=== PATIENT | male | born 1945 | race Caucasian/White ===

== ENCOUNTER → 2017-09-14 16:02 | Outpatient (CLI) | payer MEDICARE, SELFPAY | PROVIDERS: Family Provider Family Medicine; PCP Family Medicine; Visit Provider Physician Assistant | DX: R33.9 Retention of urine, unspecified (principal) | CPT/HCPCS: 87086 ==

== ENCOUNTER → 2017-10-02 09:09 | Outpatient (CLI) | payer MEDICARE, SELFPAY ==
--- NOTE | 2017-10-02 | DI.US.S_ITS ---
PROCEDURE: US ABDOMEN COMPLETE INDICATIONS: RIGHT UPPER QUADRANT/FLANK PAIN TECHNIQUE: Real-time scanning was performed of the abdominal and retroperitoneal organs, with image documentation. COMPARISON: [facility], CT, KIDNEY/ URETER/BLADDER, 02/13/2010, 9:35. FINDINGS: Liver: Liver is normal in size and homogeneous in echotexture. Solitary 1.5 cm rounded mass is present within the anterior right hepatic lobe likely an hemangioma. Gallbladder: The 0.7 x 0.6 x 0.5 cm gallbladder polyp otherwise normal gallbladder. Biliary ducts: Intrahepatic bile ducts are non-dilated. Extrahepatic bile duct caliber measures 6.2 mm. Normal is 6-7 mm or less in diameter, or 10 mm or less post-cholecystectomy. Pancreas: Visualized portions of the pancreas are sonographically normal. Spleen: Spleen is normal in size and homogeneous in echotexture. Kidneys: Kidneys are normal in size and echotexture. Right kidney measures 13 cm long; left kidney measures 12.2 cm long. No hydronephrosis or nephrolithiasis. No solid masses. Aorta: Visualized aorta is normal in caliber at less than 3 cm. Iliacs: Not well-seen. IVC: Intrahepatic inferior vena cava is patent. Miscellaneous: No free abdominal fluid. IMPRESSION: 1. Probable cavernous hemangioma present given the sonographic appearance. Recommend sequential follow up sonography at 6, 12 and 24 month intervals for surveillance. 2. 7 mm gallbladder polyp. Followup ultrasound recommended. Dictated by: Rigo MCMAHON Interpreted: Anthony Ellison MD on 10/02/2017 at 10:10 Approved by: Anthony Ellison M.D. on 10/02/2017 at 13:32
== END ==
PROVIDERS: Family Provider Family Medicine; PCP Family Medicine; Visit Provider Family Medicine
DX: R10.11 Right upper quadrant pain (principal); R16.0 Hepatomegaly, not elsewhere classified; K82.4 Cholesterolosis of gallbladder
CPT/HCPCS: 76700

== ENCOUNTER → 2018-09-15 09:53 | Outpatient (CLI) | payer MEDICARE, SELFPAY ==
[2018-09-15 11:44] LABS: Prostate Specific Antigen 1.28 ng/mL (0.10-4.00)
== END ==
PROVIDERS: Family Provider Family Medicine; PCP Family Medicine; Visit Provider Urology
DX: N40.1 Benign prostatic hyperplasia with lower urinary tract symptoms (principal)
CPT/HCPCS: 36415; 84153

== ENCOUNTER → 2019-11-08 16:28 | Outpatient (CLI) | payer MEDICARE, SELFPAY ==
--- NOTE | 2019-11-08 | DI.RAD.S_ITS ---
PROCEDURE: XR ELBOW LT MIN 3V INDICATIONS: Spider Bite with cellulitis left elbow TECHNIQUE: 3 views of the elbow were acquired. COMPARISON: None. FINDINGS: Bones: No fractures or dislocations. No suspicious bony lesions. Degenerative spurring and sclerosis. Soft tissue swelling. IMPRESSION: No focal osseous destruction to suggest advanced osteomyelitis. If there is persistent clinical concern, continued short interval radiographic followup or contrast enhanced MRI could be performed to assess for early infection. Prominent soft tissue swelling Dictated by: Foster Aponte M.D. on 11/08/2019 at 17:23 Approved by: Foster Aponte M.D. on 11/08/2019 at 17:26
[2019-11-08 17:12] LABS: Add Manual Diff / Slide Review NO; Basophils Absolute Auto 100 /uL (0-100); Basophils Percent Auto 0.7 % (0-2); Eosinophils Absolute Auto 200 /uL (0-450); Eosinophils Percent Auto 1.8 % (2-4); Hematocrit 37.1 % (41-53); Hemoglobin 12.2 g/dL (13.5-17.5); Lymphocytes Absolute Auto 1500 /uL (1100-4500); Lymphocytes Percent Auto 11.5 % (25-40); Mean Corpuscular HGB Conc 32.8 % (30-36); Mean Corpuscular Hemoglobin 28.8 PG (26-34); Mean Corpuscular Volume 87.8 fL (80-100); Monocytes Absolute Auto 1300 /uL (0-900); Monocytes Percent Auto 10.1 % (3-14); Neutrophils Absolute Auto 9800 /uL (1500-7000); Neutrophils Percent Auto 75.9 % (50-75); Platelet Count 345 X10^3/uL (150-400); Red Blood Cell Count 4.23 X10^6/uL (4.5-5.9); Red Cell Distribution Width 14.9 % (11.6-14.8); White Blood Cell Count 12.8 X10^3/uL (4.5-11.0)
[2019-11-08 17:56] LABS: C-Reactive Protein Quant 4.2 mg/dL (<1.0)
[2019-11-08 18:22] LABS: Erythrocyte Sedimentation Rate 33 MM/HR (0-15)
== END ==
PROVIDERS: Family Provider Family Medicine; PCP Family Medicine; Referring Provider Internal Medicine; Visit Provider Internal Medicine
DX: T63.301A Toxic effect of unspecified spider venom, accidental (unintentional), initial encounter (principal); L03.114 Cellulitis of left upper limb
CPT/HCPCS: 36415; 73080; 85025; 85651; 86140

== ENCOUNTER → 2020-05-25 09:54 | Outpatient (CLI) | payer MEDICARE, SELFPAY ==
[2020-05-25] MEDS: COVID-19 VACC #1, MRNA(MOD) 100 MCG/0.5 ML VIAL IM (10:03)
== END ==
PROVIDERS: Visit Provider Internal Medicine
DX: Z23 Encounter for immunization (principal)
CPT/HCPCS: 0011A; 91301

== ENCOUNTER → 2020-06-22 09:35 | Outpatient (CLI) | payer MEDICARE, SELFPAY ==
[2020-06-22] MEDS: COVID-19 VACC #2, MRNA(MOD) 100 MCG/0.5 ML VIAL IM (09:44)
== END ==
PROVIDERS: Visit Provider Internal Medicine
DX: Z23 Encounter for immunization (principal)
CPT/HCPCS: 0012A; 91301

== ENCOUNTER 2020-07-15 10:33 | Emergency (ER) | payer MEDICARE, SELFPAY ==
[2020-07-15 10:25] VITALS: BP 174/74; PULSE 90; RESP 16; TEMP 36.7; O2SAT 95; BMI 27.0
[2020-07-15 10:42] LABS: Add Manual Diff / Slide Review NO; Basophils Absolute Auto 100 /uL (0-100); Basophils Percent Auto 0.7 % (0-2); Eosinophils Absolute Auto 100 /uL (0-450); Eosinophils Percent Auto 0.8 % (2-4); Hematocrit 39.9 % (41-53); Hemoglobin 13.1 g/dL (13.5-17.5); Lymphocytes Absolute Auto 1100 /uL (1100-4500); Mean Corpuscular HGB Conc 32.9 % (30-36); Mean Corpuscular Hemoglobin 29.2 PG (26-34); Mean Corpuscular Volume 88.6 fL (80-100); Monocytes Absolute Auto 800 /uL (0-900); Monocytes Percent Auto 6.3 % (3-14); Neutrophils Absolute Auto 10100 /uL (1500-7000); Neutrophils Percent Auto 83.2 % (50-75); Platelet Count 308 X10^3/uL (150-400); Red Cell Distribution Width 15.5 % (11.6-14.8); White Blood Cell Count 12.1 X10^3/uL (4.5-11.0)
[2020-07-15 10:47] LABS: INR 1.1 (0.9-1.3); Prothrombin Time 12.2 SECONDS (10.1-12.7)
--- NOTE | 2020-07-15 10:50 | DI.CT.S_ITS ---
PROCEDURE: CT CHEST ABD PEL W CON INDICATIONS: cough, SOB, severe abdominal pain TECHNIQUE: After the administration of intravenous contrast, 5 mm thick sections acquired from the lung apices to the symphysis. 5 mm coronal and sagittal reformats were performed, with additional 7 mm MIP reformats through the lungs. For radiation dose reduction, the following was used: automated exposure control, adjustment of mA and/or kV according to patient size. COMPARISON: None. FINDINGS: Image quality: Excellent. CHEST: Lungs and pleura: Within the left upper lobe there is a 6 millimeter nodular density surrounded by cystic changes and subtle ground-glass opacity. This is adjacent to vessels. The overall size measures 1.7 x 1.4 centimeters on axial imaging (3; 125). There is mild predominantly a pickle and centrilobular emphysematous changes. No pleural effusions or pneumothorax. Central and peripheral airways appear patent and normal in caliber. Mediastinum: Heart size is normal. Marked coronary vascular calcifications. No pericardial effusion. No mediastinal or hilar adenopathy by size criteria. Thoracic aorta and central pulmonary arteries are normal in size. Esophagus is normal in caliber. No hiatal hernia. Chest wall: No axillary or supraclavicular adenopathy by size criteria. Thyroid gland nodule.. ABDOMEN: Solid organs: Liver is normal in size and enhancement. Gallbladder is unremarkable. Biliary system is non dilated. Pancreas enhances normally. Spleen is normal in size and enhancement. No adrenal nodules. Kidneys are normal in size and enhancement. No hydronephrosis. There is a 9 millimeter nonobstructing nephrolith within the inferior pole of the right kidney. There is a punctate nonobstructing nephrolith within the inferior pole of the left kidney. Subcentimeter hypodensities too small to further characterize but statistically represent simple cysts. Ureters are normal in course and caliber. Calcification noted adjacent to the distal left ureter is favored to be vascular nature. No adjacent inflammation or evidence of obstructing lesion. Peritoneum and bowel: Stomach and small bowel are unremarkable. Internal density from known ingestion of Pepto-Bismol. Appendix is normal. There is no wall thickening or surrounding inflammation. Colon is unremarkable. No evidence of obstruction. No ascites or pneumoperitoneum. Nodes and vessels: No retroperitoneal or mesenteric adenopathy by size criteria. Aorta and inferior vena cava are normal in size. There is diffuse vascular calcifications noted throughout the aorta and branch vessels. Miscellaneous: No ventral hernias. PELVIS: Genitourinary: Bladder wall thickness is normal. Prostatomegaly with the prostate measuring approximately 5.4 centimeters in transverse diameter. Miscellaneous: No inguinal hernias or adenopathy. Bones: No suspicious bony lesions. Severe right hip degenerative changes. Mild to moderate left hip degenerative changes. Diffuse degenerative changes of the spine. Subacute left posterolateral 10th rib fracture. No vertebral body compression fractures. IMPRESSION: There is a likely cavitary lung lesion within the right upper lobe measuring up to 1.7 centimeters in greatest diameter. There is a 6 millimeter nodular density noted within with associated ground-glass opacity adjacently. This is adjacent to vasculature and the density may represent a small aneurysm versus solid component. This may represent infectious or malignant process. Recommend cardiothoracic evaluation for for next step. In addition, IR referral may be beneficial. No acute abnormality within the abdomen or pelvis. Diffuse atherosclerosis throughout the abdominal and pelvic vasculature . Prostatomegaly. Coronary vascular calcifications. Additional chronic findings as above. Dictated by: Sonny Condon D.O. on 07/15/2020 at 10:42 Approved by: Sonny Condon D.O. on 07/15/2020 at 11:00
[2020-07-15 10:52] LABS: Alanine Aminotransferase 13 IU/L (<50); Albumin 3.9 g/dL (3.5-5.0); Albumin Globulin Ratio 1.2 (1.0-2.8); Alkaline Phosphatase 98 U/L (38-126); Aspartate Aminotransferase 21 IU/L (17-59); BUN Creatinine Ratio 24.8 (6-22); Bilirubin Total 0.2 mg/dL (0.2-1.3); Blood Urea Nitrogen 38 mg/dL (9-20); Calcium 9.1 mg/dL (8.4-10.2); Carbon Dioxide 29 mmol/L (22-32); Chloride 102 mmol/L (98-107); Creatine Kinase 94 U/L (55-170); Estimated Glomerular Filt Rate 44.8 mL/min (>60); Globulin 3.3 g/dL (1.7-4.1); Glucose 66 mg/dL (80-110); HEMOLYSIS < 15 (0-50); Potassium 4.8 mmol/L (3.4-5.1); Sodium 138 mmol/L (137-145); Total Protein 7.2 g/dL (6.3-8.2)
--- NOTE | 2020-07-15 10:54 | ED_ITS ---
HPI - Nausea/Vomiting/Diarrhea General Chief complaint: Abdominal Pain Stated complaint: abd pain Time Seen by Provider: 07/15/20 10:34 Source: EMS Mode of arrival: EMS Limitations: no limitations History of Present Illness HPI Narrative: 74-year-old male daily smoker with history of hemorrhoids and gastric ulcer presents with cough, shortness of breath, weakness, severe generalized abdominal pain as well as nausea, vomiting and copious diarrhea for the past few days. He presents by EMS as he feels so poorly a could not get himself here. EMS state that family report a suspected history of prostate cancer but there is no definite diagnosis. He has had no fever or chills. He denies any chest pain. He has had difficulty eating or drinking anything as it immediately comes out in the form of liquid stool. He has been taking Pepto- Bismol for the past few days without any relief. He denies recent antibiotics, exposure to bad food or other persons with similar symptoms. He states that he feels like everything has become severe since he received his COVID vaccination MD complaint: nausea, vomiting, diarrhea, abdominal pain and other Onset (ago): day(s) Description of Vomiting: food contents Description of Diarrhea: watery Associated Abdominal Pain: Yes Location of pain: diffuse Severity: moderate Quality: cramping and aching Pain Consistency: constant Relieving factors: rest Exacerbating factors: movement Related Data Home Medications Medication Instructions Recorded Confirmed Metformin Hydrochloride 1,000 mg PO BID #1 12/18/08 07/15/20 (Glucophage) finasteride 5 mg PO QDAY #0 02/26/16 glipizide [Glucotrol XL] 5 mg PO QDAY #0 02/26/16 07/15/20 lisinopril 20 mg PO QDAY #0 02/26/16 07/15/20 lovastatin 20 mg PO QDAY #0 02/26/16 07/15/20 meloxicam 15 mg PO DAILY #0 02/26/16 07/15/20 finasteride 5 mg PO DAILY 07/15/20 07/15/20 potassium citrate 10 meq PO DAILY 07/15/20 07/15/20 tamsulosin 0.4 mg PO BID 07/15/20 07/15/20 Previous Rx's Medication Instructions Recorded omeprazole 40 mg PO QAM 14 Days #0 cap 02/26/16 Allergies Allergy/AdvReac Type Severity Reaction Status Date / Time No Known Allergies Allergy Uncoded 07/15/20 10:49 Review of Systems Constitutional Constitutional: Reports chills, Reports fatigue, Denies fever(s), Denies frequent falls, Denies lethargy and Reports weakness Eyes Eyes: Denies change in vision, Denies eye discharge, Denies irritation and Denies loss of vision ENT Ears, Nose, Mouth, and Throat: Denies change in voice, Denies dizziness, Denies neck pain, Denies sore throat and Denies throat swelling Cardiovascular Cardiovascular: Denies chest pain, Denies irregular heart rhythm, Denies lightheadedness, Denies palpitations, Reports dyspnea, Denies dyspnea on exertion and Denies orthopnea Respiratory Respiratory: Reports cough, Reports dyspnea, Denies dyspnea on exertion and Denies wheezing Gastrointestinal Gastrointestinal: Reports abdominal pain, Denies change in bowel habits, Reports diarrhea, Denies nausea and Reports vomiting Musculoskeletal Musculoskeletal: Denies neck pain and Denies numbness Integumentary/Breasts Skin/Breast: Denies pruritus, Denies erythema, Denies rash and Denies wounds Neurologic Neurologic: Denies behavioral changes, Denies confusion, Denies dizziness, Denies frequent falls, Denies loss of vision, Denies numbness and Reports weakness Psychiatric Psychiatric: Denies anxiety, Denies behavioral changes, Denies confusion, Denies depression, Denies homicidal ideation and Denies suicidal ideation Endocrine Endocrine: Reports fatigue, Denies flushing and Denies palpitations Hematologic/Lymphatic Hematologic/Lymphatic: Denies easy bruising Allergic/Immunologic Allergic/Immunologic: Denies urticaria, Denies throat swelling and Denies wheezing Patient History Social History Smoking Status: Current every day smoker Smoking Status: Current every day smoker Substance Use Type: does not use Exam Narrative Exam Narrative: GENERAL: [74] year old patient appears stated age. Well- nourished, well-developed patient, in mild distress. Holding an emesis bag, complaining of abdominal pain HEAD: Atraumatic. Normocephalic. EYES: Pupils equal round and reactive. Extraocular motions intact. No scleral icterus. No injection or drainage. ENT: Dry mucous membranes Nose without bleeding, purulent drainage. Throat without erythema, tonsillar hypertrophy or exudate. Airway patent. NECK: Trachea midline. Non tender CARDIOVASCULAR: Regular rate and rhythm without murmurs, gallops, or rubs. RESPIRATORY: Clear to auscultation. Breath sounds equal bilaterally. No wheezes, rales, or rhonchi. GASTROINTESTINAL: Abdomen soft, widespread tenderness, nondistended. Bowel guy nds present in all 4 quadrants EXTREMITIES: No edema or joint tenderness. BACK: Nontender without deformity or crepitance. No flank tenderness. NEURO: AOx3. SKIN: Poor skin turgor No rash or erythema of visible areas Initial Vital Signs Initial Vital Signs: Vital Signs Temperature 98.1 F 07/15/20 10:25 Pulse Rate 90 07/15/20 10:25 Respiratory Rate 16 07/15/20 10:25 Blood Pressure 174/74 H 07/15/20 10:25 Pulse Oximetry 95 07/15/20 10:25 Course Orders Ordered: ED Orders 07/15/20 10:37 Complete Blood Count AUTO DIFF Stat Comprehensive Metabolic Panel Stat Prothrombin Time INR Stat Troponin & CK Cardiac Panel Stat 07/15/20 10:41 COVID19 - ADMIT ([employer] swab/PCR) Stat 07/15/20 10:50 CT chest abd pel w con Stat 07/15/20 12:20 Blood Culture Stat Lactate (Lactic Acid) Stat Type and Screen Stat Levofloxacin (Levaquin) 750 mg in 150 mls @ 100 mls/hr IV Q24H DANELLE Last Infusion: 07/15/20 15:53 Dose: 0 mls/hr Documented by: Admin: 07/15/20 14:16 Dose: 100 mls/hr Documented by: ROLY Ondansetron HCl (Ondansetron 4 Mg/2 Ml Inj) 4 mg IV Q4HR PRN PRN Reason: Nausea And Vomiting Last Admin: 07/15/20 10:58 Dose: 4 mg Documented by: ROLY Discontinued Medications Diazepam (Diazepam 10 Mg/2 Ml Syringe) 2 mg IV NOW ONE Stop: 07/15/20 12:41 Last Admin: 07/15/20 12:56 Dose: 2 mg Documented by: ROLY Diazepam (Diazepam 10 Mg/2 Ml Syringe) 2 mg IV NOW ONE Stop: 07/15/20 16:35 Last Admin: 07/15/20 16:40 Dose: 2 mg Documented by: ROLY Hydromorphone HCl (Hydromorphone 0.5 Mg Inj) 0.5 mg IV NOW ONE Stop: 07/15/20 11:03 Last Admin: 07/15/20 11:06 Dose: 0.5 mg Documented by: ROLY Sodium Chloride (Normal Saline 0.9%) 1,000 mls @ 1,000 mls/hr IV BOLUS ONE Stop: 07/15/20 11:33 Last Infusion: 07/15/20 11:50 Dose: 0 mls/hr Documented by: Admin: 07/15/20 10:59 Dose: 1,000 mls/hr Documented by: ROLY Sodium Chloride (Normal Saline 0.9%) 1,000 mls @ 1,000 mls/hr IV BOLUS ONE Stop: 07/15/20 11:57 Last Infusion: 07/15/20 13:30 Dose: 0 mls/hr Documented by: Admin: 07/15/20 12:14 Dose: 1,000 mls/hr Documented by: ROLY Pantoprazole Sodium (Pantoprazole 40 Mg Vial) 40 mg IV NOW ONE Stop: 07/15/20 10:35 Last Admin: 07/15/20 10:56 Dose: 40 mg Documented by: ROLY Vital Signs Vital signs: Vital Signs - 8 hr 07/15/20 10:25 07/15/20 11:03 07/15/20 11:30 Temperature 98.1 F Pulse Rate 90 89 95 H Respiratory Rate 16 31 H 16 Blood Pressure 174/74 H Pulse Oximetry 95 93 92 07/15/20 12:00 07/15/20 12:30 07/15/20 13:00 Temperature Pulse Rate 92 H 92 H 91 H Respiratory Rate 19 19 20 Blood Pressure Pulse Oximetry 93 96 90 L MDM - Nausea/Vomiting/Diarrhea Lab Data Result diagrams: 07/15/20 10:37 07/15/20 10:37 Labs: Lab Results 07/15/20 07/15/20 07/15/20 Range/Units 10:37 10:37 10:37 WBC 12.1 H (4.5-11.0) X10^3/uL RBC 4.50 (4.5-5.9) X10^6/uL Hgb 13.1 L (13.5-17.5) g/dL Hct 39.9 L (41-53) % MCV 88.6 (80-100) fL MCH 29.2 (26-34) PG MCHC 32.9 (30-36) % RDW 15.5 H (11.6-14.8) % Plt Count 308 (150-400) X10^3/uL Neut % (Auto) 83.2 H (50-75) % Lymph % (Auto) 9.0 L (25-40) % [place] % (Auto) 6.3 (3-14) % Eos % (Auto) 0.8 L (2-4) % Baso % (Auto) 0.7 (0-2) % Neut # (Auto) 01336 H (8846-6300) /uL Lymph # (Auto) 1100 (5908-0085) /uL [place] # (Auto) 800 (0-900) /uL Eos # (Auto) 100 (0-450) /uL Baso # (Auto) 100 (0-100) /uL PT 12.2 (10.1-12.7) SECONDS INR 1.1 (0.9-1.3) Sodium 138 (137-145) mmol/L Potassium 4.8 (3.4-5.1) mmol/L Chloride 102 (98-107) mmol/L Carbon Dioxide 29 (22-32) mmol/L BUN 38 H (9-20) mg/dL Creatinine 1.53 H (0.66-1.25) mg/dL Estimated GFR 44.8 L (>60) mL/min BUN/Creatinine Ratio 24.8 H (6-22) Glucose 66 L (80-110) mg/dL Lactate (0.7-2.1) mmol/L Calcium 9.1 (8.4-10.2) mg/dL Total Bilirubin 0.2 (0.2-1.3) mg/dL AST 21 (17-59) IU/L ALT 13 (<50) IU/L Alkaline Phosphatase 98 (38-126) U/L Total Creatine Kinase (55-170) U/L CK-MB (CK-2) CK-MB (CK-2) Rel Index Troponin I (0.01-0.034) ng/mL Total Protein 7.2 (6.3-8.2) g/dL Albumin 3.9 (3.5-5.0) g/dL Globulin 3.3 (1.7-4.1) g/dL Albumin/Globulin Ratio 1.2 (1.0-2.8) SARS-CoV-2 (PCR) (Negative) Blood Type Antibody Screen 07/15/20 07/15/20 07/15/20 Range/Units 10:37 10:41 12:20 WBC (4.5-11.0) X10^3/uL RBC (4.5-5.9) X10^6/uL Hgb (13.5-17.5) g/dL Hct (41-53) % MCV (80-100) fL MCH (26-34) PG MCHC (30-36) % RDW (11.6-14.8) % Plt Count (150-400) X10^3/uL Neut % (Auto) (50-75) % Lymph % (Auto) (25-40) % [place] % (Auto) (3-14) % Eos % (Auto) (2-4) % Baso % (Auto) (0-2) % Neut # (Auto) (1759-9156) /uL Lymph # (Auto) (2110-2317) /uL [place] # (Auto) (0-900) /uL Eos # (Auto) (0-450) /uL Baso # (Auto) (0-100) /uL PT (10.1-12.7) SECONDS INR (0.9-1.3) Sodium (137-145) mmol/L Potassium (3.4-5.1) mmol/L Chloride (98-107) mmol/L Carbon Dioxide (22-32) mmol/L BUN (9-20) mg/dL Creatinine (0.66-1.25) mg/dL Estimated GFR (>60) mL/min BUN/Creatinine Ratio (6-22) Glucose (80-110) mg/dL Lactate 0.8 (0.7-2.1) mmol/L Calcium (8.4-10.2) mg/dL Total Bilirubin (0.2-1.3) mg/dL AST (17-59) IU/L ALT (<50) IU/L Alkaline Phosphatase (38-126) U/L Total Creatine Kinase 94 (55-170) U/L CK-MB (CK-2) TNP CK-MB (CK-2) Rel Index TNP Troponin I 0.013 (0.01-0.034) ng/mL Total Protein (6.3-8.2) g/dL Albumin (3.5-5.0) g/dL Globulin (1.7-4.1) g/dL Albumin/Globulin Ratio (1.0-2.8) SARS-CoV-2 (PCR) Negative (Negative) Blood Type Antibody Screen 07/15/20 Range/Units 12:20 WBC (4.5-11.0) X10^3/uL RBC (4.5-5.9) X10^6/uL Hgb (13.5-17.5) g/dL Hct (41-53) % MCV (80-100) fL MCH (26-34) PG MCHC (30-36) % RDW (11.6-14.8) % Plt Count (150-400) X10^3/uL Neut % (Auto) (50-75) % Lymph % (Auto) (25-40) % [place] % (Auto) (3-14) % Eos % (Auto) (2-4) % Baso % (Auto) (0-2) % Neut # (Auto) (3886-7165) /uL Lymph # (Auto) (2372-2050) /uL [place] # (Auto) (0-900) /uL Eos # (Auto) (0-450) /uL Baso # (Auto) (0-100) /uL PT (10.1-12.7) SECONDS INR (0.9-1.3) Sodium (137-145) mmol/L Potassium (3.4-5.1) mmol/L Chloride (98-107) mmol/L Carbon Dioxide (22-32) mmol/L BUN (9-20) mg/dL Creatinine (0.66-1.25) mg/dL Estimated GFR (>60) mL/min BUN/Creatinine Ratio (6-22) Glucose (80-110) mg/dL Lactate (0.7-2.1) mmol/L Calcium (8.4-10.2) mg/dL Total Bilirubin (0.2-1.3) mg/dL AST (17-59) IU/L ALT (<50) IU/L Alkaline Phosphatase (38-126) U/L Total Creatine Kinase (55-170) U/L CK-MB (CK-2) CK-MB (CK-2) Rel Index Troponin I (0.01-0.034) ng/mL Total Protein (6.3-8.2) g/dL Albumin (3.5-5.0) g/dL Globulin (1.7-4.1) g/dL Albumin/Globulin Ratio (1.0-2.8) SARS-CoV-2 (PCR) (Negative) Blood Type A Positive Antibody Screen Negative MDM Narrative Medical decision making narrative: Patient with nausea, vomiting, diarrhea and abdominal pain is dizzy, weak and lightheaded and has had some cough and shortness of breath over the past few days. He has had no fever or chills. The CT of his abdomen does not demonstrate any significant findings, patient has been given fluids. His chest CT does note a 1.7 cm cavitary lesion in the apex of his lung which is concerning for infectious versus malignant etiology. I did discuss initially with my hospitalist here but he was uncomfortable keeping the patient as we do not have Interventional Radiology, CT or pulmonology. He requested transfer to [facility], he is on staff there is well and felt to be a more appropriate facility. Patient does not live in group setting, has not travelled internationally, was not born overseas, no chronic immune suppression. Risks for TB considered to be smoking, and DM only. Discharge Plan Departure Patient Disposition: [facility] Clinical Impression: Acute kidney injury, Cavitary lesion of lung Abdominal pain Qualifiers: Abdominal location: generalized Qualified Code(s): R10.84 - Generalized abdominal pain Prescriptions: No Action Metformin Hydrochloride (Glucophage) 1,000 mg PO BID Qty: 1 RF: 0 lisinopril 20 MG tablet 20 mg PO QDAY Qty: 0 RF: 0 meloxicam 15 MG tablet 15 mg PO DAILY Qty: 0 RF: 0 lovastatin 40 MG tablet 20 mg PO QDAY Qty: 0 RF: 0 glipizide [Glucotrol XL] 5 MG tablet extended release 24hr 5 mg PO QDAY Qty: 0 RF: 0 finasteride 5 MG tablet 5 mg PO QDAY Qty: 0 RF: 0 omeprazole 40 MG capsule,delayed release(DR/EC) 40 mg PO QAM 14 Days Qty: 0 RF: 0 finasteride 5 mg tablet 5 mg PO DAILY RF: 0 tamsulosin 0.4 mg PO BID RF: 0 potassium citrate 10 meq PO DAILY RF: 0
[2020-07-15] MEDS: PANTOPRAZOLE 40 MG VIAL IV (10:56)
[2020-07-15] MEDS: ONDANSETRON 4 MG/2 ML INJ IV (10:58)
[2020-07-15] MEDS: SODIUM CHLORIDE 0.9% 1,000 ML 1000 ML IV ×2 (10:59→12:14)
[2020-07-15 11:03] VITALS: PULSE 89; RESP 31; O2SAT 93
[2020-07-15 11:04] LABS: Troponin I 0.013 ng/mL (0.01-0.034)
[2020-07-15] MEDS: HYDROMORPHONE 0.5 MG INJ IV (11:06)
[2020-07-15 11:30] VITALS: PULSE 95; RESP 16; O2SAT 92
[2020-07-15 12:00] VITALS: PULSE 92; RESP 19; O2SAT 93
[2020-07-15 12:07] LABS: COVID19 - ADMIT (NP swab/PCR) Negative (Negative)
[2020-07-15 12:30] VITALS: PULSE 92; RESP 19; O2SAT 96
[2020-07-15 12:43] LABS: Lactate (Lactic Acid) 0.8 mmol/L (0.7-2.1)
[2020-07-15] MEDS: diazePAM 10 MG/2 ML SYRINGE 2 MG IV ×2 (12:56→16:40)
[2020-07-15 13:00] VITALS: PULSE 91; RESP 20; O2SAT 90
[2020-07-15] MEDS: levoFLOXacin 750 MG/150 ML PIGGYBACK 100 MG IV (14:16)
--- NOTE | 2020-07-15 16:26 | PC.NURSE ---
stage two pressure ulceration noted to coccyx
--- NOTE | 2020-07-15 17:23 | PC.NURSE ---
Report to Yessica WHITING at [facility].
== END 2020-07-15 18:18 | disposition short-term general hospital (02) ==
PROVIDERS: Emergency Provider Emergency Medicine
DX: N17.9 Acute kidney failure, unspecified (principal); R91.1 Solitary pulmonary nodule; R10.84 Generalized abdominal pain; R42 Dizziness and giddiness; R11.2 Nausea with vomiting, unspecified; R19.7 Diarrhea, unspecified; Z20.822 Contact with and (suspected) exposure to COVID-19
CPT/HCPCS: 36415; 71260; 74177; 80053; 82550; 83605; 84484; 85025; 85610; 86850; 86900; 86901; 87040; 87635; 96361; 96365; 96366; 96375; 96376; 99284; 99291; C9803; C9113; J1170; J1956; J2405; J3360; Q9967

== ENCOUNTER 2020-07-30 12:11 | Inpatient (IN) | payer MEDICARE, SELFPAY ==
[2020-07-30] VITALS (68 sets, daily range): BP systolic 54–168; BP diastolic 33–81; PULSE 57–126; RESP 12–48; TEMP 35.3–36.6; O2SAT 81–99; BMI 26.5
--- NOTE | 2020-07-30 | PATH_ITS ---
[facility] Accession Number: [id number] . 01 Material submitted: . abdomen - OMENTUM . 02 Diagnosis: Omentum, Partial Resection: Omentum with serositis. No evidence of atypia or malignancy. MRV 08/03/2020 1314 Local . 02 Electronically signed: . Rosetta Terrell MD, Pathologist NPI- [id number] . 01 Gross description: . The specimen is received in formalin, labeled omentum and consists of a 13.0 x 12.0 x 2.5 cm wilkinson-yellow portion of omentum which is sectioned to reveal wilkinson-yellow lobulated cut surfaces. No masses or lesions are identified. Extern sections are submitted in cassettes A1-A3. ([id number]) /V 08/01/2020 1022 Local . 02 Pathologist provided ICD-10: K63.1 . 02 CPT . 115707 Performed at: 01 [facility] [address], [place], [place] [id number] MD Andrzej Henriquez MD Phone: [phone] Performed at: 02 [facility] [address] [place], [place] [id number] MD Rosetta Terrell MD Phone: [phone]
--- NOTE | 2020-07-30 12:14 | DI.CT.S_ITS ---
PROCEDURE: CT ABDOMEN PELVIS W CON INDICATIONS: abdominal pain, sob, no BM x 4 days, ? n/v TECHNIQUE: After the administration of intravenous contrast, 5 mm thick sections acquired from the diaphragm to the symphysis. 5 mm coronal and sagittal reformats were acquired. For radiation dose reduction, the following was used: automated exposure control, adjustment of mA and/or kV according to patient size. COMPARISON: [facility], CT, CT CHEST ABD PEL W CON, 07/15/2020, 11:05. [facility], CT, CT ANGIO CHEST PE PROTOCOL, 07/30/2020, 12:53. FINDINGS: Image quality: Excellent. ABDOMEN: Lung bases: There is a small left-sided pleural effusion. Heart size is normal. At least moderate coronary artery calcification is seen. Solid organs: Liver is normal in size and enhancement. Gallbladder demonstrates no significant abnormality. Biliary system is non dilated. Pancreas enhances normally. Spleen is normal in size and enhancement. No adrenal nodules. Kidneys demonstrate normal size and enhancement, without hydronephrosis. Peritoneum and bowel: There is moderate free intraperitoneal gas seen. The site of the perforation is not clearly identified, although it is suspected to be within the proximal duodenum, given the focal fluid and gas at this site, as on series 11, image 45. There is a mild degree of ascites seen. The ascites measures water density and is simple ascites. Generalized wall thickening can be seen of the small bowel, particularly proximally. A moderate amount of stool can be seen within the colon. There is density seen within the cc of the distal colon, which is attributed to the previously administered oral contrast from the 07/15/2020 examination. Nodes and vessels: No retroperitoneal or mesenteric adenopathy by size criteria. Aorta and inferior vena cava are normal in size. Dense atherosclerotic calcification is seen. Miscellaneous: No ventral hernias. PELVIS: Genitourinary: A Molina catheter is seen, which decompresses the bladder. Miscellaneous: No inguinal adenopathy. Small bilateral inguinal hernias are seen, which contain fat and fluid on the right and fat on the left. Bones: No suspicious bony lesions. No vertebral body compression fractures. Mild levoconvex scoliotic curvature is noted. Age-appropriate bony degenerative changes are seen. IMPRESSION: A moderate amount of free intraperitoneal gas is seen, which represents perforation till proven otherwise. The site of the perforation is not clearly seen, although it is suspected to be within the proximal duodenum. Urgent surgical consultation is recommended. There is a mild amount of ascites. Generalized small bowel wall thickening is seen. Small left-sided pleural effusion. Incidental note is made of: Bilateral inguinal hernias Molina catheter Atherosclerotic calcification, including involving the coronary arteries Note: Case discussed by telephone with Dr. Veliz at 12:35 p.m. on July 30, 2020. Dictated by: Charles Alanis M.D. on 07/30/2020 at 12:36 Approved by: Charles Alanis M.D. on 07/30/2020 at 12:39
--- NOTE | 2020-07-30 12:15 | DI.RAD.S_ITS ---
PROCEDURE: XR CHEST 1V INDICATIONS: shortness of breath, abdominal pain, TECHNIQUE: One view of the chest was acquired. COMPARISON: [facility], CR, XR CHEST 1 VIEW, 07/16/2020, 23:30. [facility], CT, CT CHEST ABD PEL W CON, 07/15/2020, 11:05. FINDINGS: Surgical changes and devices: None. Lungs and pleura: No focal infiltrates are seen. No pleural effusions or pneumothorax. Mediastinum: Mediastinal contours appear normal. Heart size is normal. Atherosclerotic calcification of the aortic arch is noted. Bones and chest wall: No suspicious bony lesions. Age-appropriate bony degenerative changes are seen. Overlying soft tissues appear unremarkable. IMPRESSION: No significant portable chest abnormality is seen. Dictated by: Charles Alanis M.D. on 07/30/2020 at 11:43 Approved by: Charles Alanis M.D. on 07/30/2020 at 11:45
--- NOTE | 2020-07-30 12:16 | ED.SOB ---
HPI - SOB/Dyspnea General Chief Complaint: Shortness of Breath/Dyspnea Stated Complaint: abd pain/desat Time Seen by Provider: 07/30/20 12:14 Source: patient, EMS and old records reviewed Mode of arrival: EMS Limitations: no limitations History of Present Illness HPI Narrative: This is a 74-year-old male who comes to the emergency department for abdominal, no bowel movement for the last 4-5 days. Patient has also been feeling acutely short of breath in the last day. States he has had some nausea and vomiting today as well. He states the shortness of breath started but the last hour. Patient has had increasing pain in his abdomen has felt distended. Patient is unaware of any fevers. He does appreciate swelling of all of his extremities. Patient has seen recently on the and transferred to [facility] for cavitary lung lesion along with history of hemorrhoids and gastric ulcer who had copious diarrhea at that time. Patient was discharged and sent as from [facility]. Attempting to get records. Patient is alert he does appear uncomfortable. He did arrive with his pulse form which states DNR/DNI and comfort measures only. Past patient and he does not wish to be intubated, ventilator have CPR but he is open to IV fluids, and medications. Patient has a history of diabetes, hypertension and dyslipidemia. He denies any recent major cardiac or abdominal surgeries. There is also reported history of possible prostate cancer but unclear if this is a concrete diagnosis. Patient also states he has used tobacco in the past but he has not required oxygen in the past. Related Data Home Medications Medication Instructions Recorded Confirmed Metformin Hydrochloride 1,000 mg PO BID #1 12/18/08 07/30/20 (Glucophage) finasteride 5 mg PO QDAY #0 02/26/16 07/30/20 glipizide [Glucotrol XL] 5 mg PO QDAY #0 02/26/16 07/30/20 lisinopril 10 mg PO QDAY #0 02/26/16 07/30/20 lovastatin 20 mg PO QDAY #0 02/26/16 07/30/20 meloxicam 15 mg PO DAILY #0 02/26/16 07/15/20 potassium citrate 10 meq PO DAILY 07/15/20 07/15/20 tamsulosin 0.8 mg PO DAILY 07/15/20 07/30/20 amlodipine 5 mg PO DAILY 07/30/20 07/30/20 gabapentin 100 mg PO BEDTIME 07/30/20 07/30/20 hydrocodone-acetaminophen 1 tab PO Q6H PRN 07/30/20 07/30/20 Previous Rx's Medication Instructions Recorded omeprazole 40 mg PO QAM 14 Days #0 cap 02/26/16 Allergies Allergy/AdvReac Type Severity Reaction Status Date / Time No Known Drug Allergies Allergy Verified 07/30/20 12:25 Review of Systems Review of Systems ROS Unobtainable: All systems reviewed & are unremarkable except as noted in HPI and below Patient History Medical History BPH (benign prostatic hyperplasia) Chronic kidney disease DM2 (diabetes mellitus, type 2) HTN (hypertension) Smoker Social History Smoking Status: Current every day smoker Smoking Status: Current every day smoker Substance Use Type: does not use Exam Narrative Exam Narrative: GEN: Ill-appearing male, alert and oriented, patient appears to be in moderate distress. Patient is not diaphoretic. HEENT: Atraumatic, pupils are equal round reactive to light, extraocular movements are intact, nares are clear, there is no conjunctival pallor. Throat is clear without any exudates, erythema, tonsillar enlargement or uvular deviation, mucous membranes appear dry. HEART: Regular rate and rhythm without murmur, clicks, rubs. Pulses are equal in upper and lower extremities LUNGS:Lungs decreased bilaterally, no wheezes, rales, crackles, chest moves symmetrically, positive for tachypnea. ABD:bowel sounds normal, soft, positive for generalized tenderness, no guarding, rebound, rigidity, no masses noted, no hepatosplenomegaly, mildly distended. :No CVA tenderness MSCL: Non-tender, full range of motion upper and lower extremities. Patient has some scabbed abrasions on his right anterior love. No discrete swelling appreciated bilateral upper lower extremities. NEURO:CN 2-12 intact, sensation normal SKIN: Pallor, cyanosis, no rash or skin changes appreciated. Initial Vital Signs Initial Vital Signs: Vital Signs Temperature 97.9 F 07/30/20 12:10 Pulse Rate 110 H 07/30/20 12:10 Respiratory Rate 40 H 07/30/20 12:10 Blood Pressure 82/49 L 07/30/20 12:10 Pulse Oximetry 81 L 07/30/20 12:10 Scores GCS Joni coma scale eye opening: Spontaneous [place] coma scale verbal response: Orientated Joni coma scale motor response: Obey commands Joni coma scale total score: 15 Course Orders Ordered: ED Orders 07/30/20 12:14 Consult to Respiratory Therapy Evaluate & Treat CT abdomen pelvis w con Stat Complete Blood Count AUTO DIFF Stat Comprehensive Metabolic Panel Stat D Dimer Stat Lipase Stat Magnesium Stat NT-proBNP (BNP-Adult 18+) Stat Partial Thromboplastin Time Stat Procalcitonin Stat Prothrombin Time INR Stat Troponin & CK Cardiac Panel Stat EKG-12 Lead Stat 07/30/20 12:15 CT angio chest PE protocol Stat XR chest 1V Stat COVID19 -Nasal swab/Pre-Proc Stat 07/30/20 12:20 Blood Culture Stat 07/30/20 12:37 Urinalysis and Microscopic Stat 07/30/20 12:40 COVID19 - ADMIT (PHARMACIST ASSISTANT swab/PCR) Stat Lactate (Lactic Acid) Stat 07/30/20 12:43 Arterial Blood Gas Stat Albuterol (Albuterol 2.5 Mg/3 Ml Neb (Adult)) 2.5 mg INH NOW PRN PRN Reason: Coughing, Wheezing, Dyspnea Fentanyl (Fentanyl 100 Mcg/2 Ml Inj) 25 mcg IV Q1H PRN PRN Reason: Pain, Severe (7-10) Last Admin: 07/30/20 15:15 Dose: 25 mcg Documented by: Admin: 07/30/20 14:19 Dose: 25 mcg Documented by: Admin: 07/30/20 13:04 Dose: 25 mcg Documented by: Admin: 07/30/20 12:45 Dose: 25 mcg Documented by: Admin: 07/30/20 12:34 Dose: 25 mcg Documented by: Admin: 07/30/20 12:26 Dose: 25 mcg Documented by: DANTE Fentanyl (Fentanyl 100 Mcg/2 Ml Inj) 0 mcg IV Q5M PRN PRN Reason: Pain, Moderate (4-6) Hydromorphone HCl (Hydromorphone 2 Mg Inj) 0 mg IV Q5MIN PRN PRN Reason: Pain, Mild (1-3) Lactated Ringer's (Lactated Ringers) 1,000 mls @ 42 mls/hr IV NOW ONE Stop: 07/31/20 19:04 Last Admin: 07/30/20 19:09 Dose: 42 mls/hr Documented by: Infusion: 07/30/20 19:09 Dose: 42 mls/hr Documented by: Admin: 07/30/20 17:03 Dose: 42 mls/hr Documented by: VONNIE Naloxone HCl (Naloxone 0.4 Mg/Ml Vial) 0.2 mg IV Q2MIN PRN PRN Reason: Opiate Reversal Ondansetron HCl (Ondansetron 4 Mg/2 Ml Inj) 4 mg IV NOW PRN PRN Reason: Nausea And Vomiting Discontinued Medications Bupivacaine HCl/Epinephrine Bitart (Bupivacaine 0.5% W/ Epi (Pf) 30 Ml Vial) 30 ml INJ NOW ONE Stop: 07/30/20 17:34 Last Admin: 07/30/20 17:33 Dose: 30 ml Documented by: ANNABELLA Furosemide (Furosemide 20 Mg/2 Ml Vial) 10 mg IV NOW ONE Stop: 07/30/20 19:03 Hydromorphone HCl (Hydromorphone 1 Mg Inj) 1 mg IV NOW ONE Stop: 07/30/20 15:27 Last Admin: 07/30/20 15:31 Dose: 1 mg Documented by: CHRIS Sodium Chloride (Normal Saline 0.9%) 1,000 mls @ 1,000 mls/hr IV BOLUS ONE Stop: 07/30/20 13:13 Last Infusion: 07/30/20 14:00 Dose: 0 mls/hr Documented by: Admin: 07/30/20 12:28 Dose: 1,000 mls/hr Documented by: DANTE Piperacillin Sod/Tazobactam (Sod 4.5 gm/ Sodium Chloride) 100 mls @ 200 mls/hr IV NOW ONE Stop: 07/30/20 13:23 Last Infusion: 07/30/20 14:49 Dose: 0 mls/hr Documented by: Admin: 07/30/20 14:15 Dose: 200 mls/hr Documented by: CHRIS Lactated Ringer's (Lactated Ringers) 2,663.04 mls @ 887.68 mls/hr 30 ml/kg infuse over 3 hr (2663.04 ml) IV NOW ONE Stop: 07/30/20 16:22 Last Infusion: 07/30/20 17:03 Dose: 0 mls/hr Documented by: Admin: 07/30/20 17:03 Dose: 887.68 mls/hr Documented by: Infusion: 07/30/20 17:03 Dose: 887.68 mls/hr Documented by: Infusion: 07/30/20 16:04 Dose: 887.68 mls/hr Documented by: Admin: 07/30/20 14:13 Dose: 887.68 mls/hr Documented by: CHRIS Metronidazole (Flagyl) 500 mg in 100 mls @ 100 mls/hr IV NOW ONE Stop: 07/30/20 15:30 Last Infusion: 07/30/20 15:34 Dose: 0 mls/hr Documented by: Admin: 07/30/20 14:36 Dose: 100 mls/hr Documented by: CHRIS Famotidine (Pepcid) 20 mg in 50 mls @ 200 mls/hr IV NOW ONE Stop: 07/30/20 16:57 Insulin Human Regular (Insulin Regular 100 Unit/Ml 3 Ml Vial) 10 unit SUBCUT NOW ONE Stop: 07/30/20 16:44 Last Admin: 07/30/20 18:15 Dose: 10 unit Documented by: VONNIE Cosigned by: DELVIN Admin: 07/30/20 17:10 Dose: 10 unit Documented by: VONNIE Cosigned by: DELVIN Methylprednisolone (Methylprednisolone 125 Mg/2 Ml Vial) 125 mg IV NOW ONE Stop: 07/30/20 12:15 Last Admin: 07/30/20 12:28 Dose: 125 mg Documented by: DANTE Ondansetron HCl (Ondansetron 4 Mg/2 Ml Inj) 4 mg IV NOW ONE Stop: 07/30/20 12:22 Last Admin: 07/30/20 12:28 Dose: 4 mg Documented by: DANTE Reevaluation(s) Reevaluation #1: Patient's pain is improved but still present. Discussed today's findings. He is potentially open to surgery Time: 14:27 Consultations Consultation #1: Dr. Cueva, will come to evaluate patient. With patient's complex medical history if the hospitalist does not feel patient is appropriate here inpatient once surgery we may need to transfer Consultation #2: Dr. Handy, reviewed case. He was here in the department and saw patient. Time: 15:02 Vital Signs Vital signs: Vital Signs - 8 hr 07/30/20 12:10 07/30/20 12:16 07/30/20 12:20 Temperature 97.9 F Pulse Rate 110 H 116 H 118 H Respiratory Rate 40 H 34 H 36 H Blood Pressure 82/49 L 109/58 L Pulse Oximetry 81 L 89 L 96 07/30/20 12:28 07/30/20 12:30 07/30/20 12:31 Temperature Pulse Rate 122 H 125 H Respiratory Rate 48 H 46 H 24 Blood Pressure 103/75 Pulse Oximetry 99 91 96 07/30/20 12:33 07/30/20 12:40 07/30/20 12:50 Temperature Pulse Rate 121 H 123 H 124 H Respiratory Rate 33 H 34 H 36 H Blood Pressure 107/67 102/58 L 129/63 Pulse Oximetry 97 98 98 07/30/20 13:06 07/30/20 13:13 07/30/20 13:15 Temperature Pulse Rate 126 H 125 H Respiratory Rate 35 H Blood Pressure 126/66 Pulse Oximetry 98 90 L 07/30/20 13:20 07/30/20 13:30 07/30/20 13:40 Temperature Pulse Rate 125 H 124 H 124 H Respiratory Rate 31 H 32 H 25 H Blood Pressure 137/65 138/69 146/72 H Pulse Oximetry 90 L 82 L 93 07/30/20 13:50 07/30/20 14:00 07/30/20 14:10 Temperature Pulse Rate 124 H 124 H 122 H Respiratory Rate 29 H 25 H 25 H Blood Pressure 146/69 H 145/73 H 154/77 H Pulse Oximetry 92 94 95 07/30/20 14:20 07/30/20 14:30 07/30/20 14:40 Temperature Pulse Rate 120 H 117 H 116 H Respiratory Rate 35 H 22 23 Blood Pressure 152/72 H 164/79 H 156/76 H Pulse Oximetry 94 94 94 07/30/20 14:50 07/30/20 15:00 07/30/20 15:10 Temperature Pulse Rate 117 H 116 H 116 H Respiratory Rate 29 H 34 H 44 H Blood Pressure 142/65 H 151/71 H 168/78 H Pulse Oximetry 93 93 91 07/30/20 15:20 Temperature Pulse Rate 116 H Respiratory Rate 31 H Blood Pressure 167/81 H Pulse Oximetry 93 MDM - SOB/Dyspnea Lab Data Attestation: I reviewed the patient's lab results. Result diagrams: 07/30/20 12:14 07/30/20 12:14 Labs: Lab Results 07/30/20 07/30/20 07/30/20 Range/Units 12:14 12:14 12:14 WBC 20.0 H (4.5-11.0) X10^3/uL RBC 4.78 (4.5-5.9) X10^6/uL Hgb 13.8 (13.5-17.5) g/dL Hct 42.6 (41-53) % MCV 89.1 (80-100) fL MCH 28.9 (26-34) PG MCHC 32.4 (30-36) % RDW 16.0 H (11.6-14.8) % Plt Count 369 (150-400) X10^3/uL Neut % (Auto) 90.2 H (50-75) % Lymph % (Auto) 2.3 L (25-40) % [place] % (Auto) 7.3 (3-14) % Eos % (Auto) 0.0 L (2-4) % Baso % (Auto) 0.2 (0-2) % Neut # (Auto) 55262 H (0007-4410) /uL Lymph # (Auto) 500 L (1413-5764) /uL [place] # (Auto) 1500 H (0-900) /uL Eos # (Auto) 0 (0-450) /uL Baso # (Auto) 0 (0-100) /uL PT 12.2 (10.1-12.7) SECONDS INR 1.1 (0.9-1.3) APTT 44 H (26.4-36.2) SECONDS D-Dimer 620 H (<230) ng/mL ABG pH (7.35-7.45) ABG pCO2 (35-45) mmHg ABG pO2 (80-100) mmHg ABG HCO3 (22-26) mmol/L ABG Total CO2 (21-31) mmol/L ABG O2 Saturation (95-100) % ABG Base Excess (-2-2) mmol/L FiO2 Sodium 134 L (137-145) mmol/L Potassium 4.9 (3.4-5.1) mmol/L Chloride 95 L (98-107) mmol/L Carbon Dioxide 28 (22-32) mmol/L BUN 73 H (9-20) mg/dL Creatinine 2.22 H (0.66-1.25) mg/dL Estimated GFR 29.2 L (>60) mL/min BUN/Creatinine Ratio 32.9 H (6-22) Glucose 222 H (80-110) mg/dL Lactate (0.7-2.1) mmol/L Calcium 10.2 (8.4-10.2) mg/dL Magnesium 1.8 (1.6-2.3) mg/dL Total Bilirubin 0.8 (0.2-1.3) mg/dL AST 22 (17-59) IU/L ALT 19 (<50) IU/L Alkaline Phosphatase 131 H (38-126) U/L Total Creatine Kinase 27 L (55-170) U/L CK-MB (CK-2) TNP CK-MB (CK-2) Rel Index TNP Troponin I 0.017 (0.01-0.034) ng/mL NT-Pro-B Natriuret Pep 274 H (<125) pg/mL Total Protein 7.3 (6.3-8.2) g/dL Albumin 4.0 (3.5-5.0) g/dL Globulin 3.3 (1.7-4.1) g/dL Albumin/Globulin Ratio 1.2 (1.0-2.8) Lipase 183 (23-300) U/L Procalcitonin 1.32 H (<0.5) ng/mL Urine Color Urine Appearance Urine pH (4.5-8.0) Ur Specific [place] (1.000-1.035) Urine Protein (Negative) Urine Glucose (UA) (Negative) g/dL Urine Ketones (NEGATIVE) Urine Occult Blood (Negative) Urine Nitrate (Negative) Urine Bilirubin (NEGATIVE) Urine Urobilinogen (0.2) E.U./dL Ur Leukocyte Esterase (NEGATIVE) Urine RBC (0-5/HPF) Urine WBC (0-5/HPF) Ur Squamous Epith Cells (0-5/HPF) Urine Bacteria (None) Urine Mucus (Negative) Ur Culture Indicated? SARS-CoV-2 (PCR) (Negative) 07/30/20 07/30/20 07/30/20 Range/Units 12:15 12:37 12:40 WBC (4.5-11.0) X10^3/uL RBC (4.5-5.9) X10^6/uL Hgb (13.5-17.5) g/dL Hct (41-53) % MCV (80-100) fL MCH (26-34) PG MCHC (30-36) % RDW (11.6-14.8) % Plt Count (150-400) X10^3/uL Neut % (Auto) (50-75) % Lymph % (Auto) (25-40) % [place] % (Auto) (3-14) % Eos % (Auto) (2-4) % Baso % (Auto) (0-2) % Neut # (Auto) (4493-9920) /uL Lymph # (Auto) (0493-2917) /uL [place] # (Auto) (0-900) /uL Eos # (Auto) (0-450) /uL Baso # (Auto) (0-100) /uL PT (10.1-12.7) SECONDS INR (0.9-1.3) APTT (26.4-36.2) SECONDS D-Dimer (<230) ng/mL ABG pH (7.35-7.45) ABG pCO2 (35-45) mmHg ABG pO2 (80-100) mmHg ABG HCO3 (22-26) mmol/L ABG Total CO2 (21-31) mmol/L ABG O2 Saturation (95-100) % ABG Base Excess (-2-2) mmol/L FiO2 Sodium (137-145) mmol/L Potassium (3.4-5.1) mmol/L Chloride (98-107) mmol/L Carbon Dioxide (22-32) mmol/L BUN (9-20) mg/dL Creatinine (0.66-1.25) mg/dL Estimated GFR (>60) mL/min BUN/Creatinine Ratio (6-22) Glucose (80-110) mg/dL Lactate 2.2 H (0.7-2.1) mmol/L Calcium (8.4-10.2) mg/dL Magnesium (1.6-2.3) mg/dL Total Bilirubin (0.2-1.3) mg/dL AST (17-59) IU/L ALT (<50) IU/L Alkaline Phosphatase (38-126) U/L Total Creatine Kinase (55-170) U/L CK-MB (CK-2) CK-MB (CK-2) Rel Index Troponin I (0.01-0.034) ng/mL NT-Pro-B Natriuret Pep (<125) pg/mL Total Protein (6.3-8.2) g/dL Albumin (3.5-5.0) g/dL Globulin (1.7-4.1) g/dL Albumin/Globulin Ratio (1.0-2.8) Lipase (23-300) U/L Procalcitonin (<0.5) ng/mL Urine Color Yellow Urine Appearance Clear Urine pH 6.0 (4.5-8.0) Ur Specific [place] 1.025 (1.000-1.035) Urine Protein 2+ H (Negative) Urine Glucose (UA) Trace H (Negative) g/dL Urine Ketones Negative (NEGATIVE) Urine Occult Blood Negative (Negative) Urine Nitrate Negative (Negative) Urine Bilirubin Negative (NEGATIVE) Urine Urobilinogen 0.2 (0.2) E.U./dL Ur Leukocyte Esterase Negative (NEGATIVE) Urine RBC None seen (0-5/HPF) Urine WBC 0-1/hpf (0-5/HPF) Ur Squamous Epith Cells 0-1 /hpf (0-5/HPF) Urine Bacteria None seen (None) Urine Mucus 1+ H (Negative) Ur Culture Indicated? Cult not indicated SARS-CoV-2 (PCR) Negative (Negative) 07/30/20 07/30/20 07/30/20 Range/Units 12:40 12:43 15:00 WBC (4.5-11.0) X10^3/uL RBC (4.5-5.9) X10^6/uL Hgb (13.5-17.5) g/dL Hct (41-53) % MCV (80-100) fL MCH (26-34) PG MCHC (30-36) % RDW (11.6-14.8) % Plt Count (150-400) X10^3/uL Neut % (Auto) (50-75) % Lymph % (Auto) (25-40) % [place] % (Auto) (3-14) % Eos % (Auto) (2-4) % Baso % (Auto) (0-2) % Neut # (Auto) (0998-5269) /uL Lymph # (Auto) (3260-5896) /uL [place] # (Auto) (0-900) /uL Eos # (Auto) (0-450) /uL Baso # (Auto) (0-100) /uL PT (10.1-12.7) SECONDS INR (0.9-1.3) APTT (26.4-36.2) SECONDS D-Dimer (<230) ng/mL ABG pH 7.44 (7.35-7.45) ABG pCO2 38.0 (35-45) mmHg ABG pO2 113 H (80-100) mmHg ABG HCO3 26 (22-26) mmol/L ABG Total CO2 27 (21-31) mmol/L ABG O2 Saturation 99 (95-100) % ABG Base Excess 1.0 (-2-2) mmol/L FiO2 100 Sodium (137-145) mmol/L Potassium (3.4-5.1) mmol/L Chloride (98-107) mmol/L Carbon Dioxide (22-32) mmol/L BUN (9-20) mg/dL Creatinine (0.66-1.25) mg/dL Estimated GFR (>60) mL/min BUN/Creatinine Ratio (6-22) Glucose (80-110) mg/dL Lactate 3.1 H (0.7-2.1) mmol/L Calcium (8.4-10.2) mg/dL Magnesium (1.6-2.3) mg/dL Total Bilirubin (0.2-1.3) mg/dL AST (17-59) IU/L ALT (<50) IU/L Alkaline Phosphatase (38-126) U/L Total Creatine Kinase (55-170) U/L CK-MB (CK-2) CK-MB (CK-2) Rel Index Troponin I (0.01-0.034) ng/mL NT-Pro-B Natriuret Pep (<125) pg/mL Total Protein (6.3-8.2) g/dL Albumin (3.5-5.0) g/dL Globulin (1.7-4.1) g/dL Albumin/Globulin Ratio (1.0-2.8) Lipase (23-300) U/L Procalcitonin (<0.5) ng/mL Urine Color Urine Appearance Urine pH (4.5-8.0) Ur Specific [place] (1.000-1.035) Urine Protein (Negative) Urine Glucose (UA) (Negative) g/dL Urine Ketones (NEGATIVE) Urine Occult Blood (Negative) Urine Nitrate (Negative) Urine Bilirubin (NEGATIVE) Urine Urobilinogen (0.2) E.U./dL Ur Leukocyte Esterase (NEGATIVE) Urine RBC (0-5/HPF) Urine WBC (0-5/HPF) Ur Squamous Epith Cells (0-5/HPF) Urine Bacteria (None) Urine Mucus (Negative) Ur Culture Indicated? SARS-CoV-2 (PCR) Negative (Negative) Point of Care Testing Glucose POC [address] scan - chest: Radiologist's Impression: Ted Perez 74 M [address] [id number] Scan ReportSigned Patient: Ted Perez CMR#: [id number]: 1945cct:[id number]/Sex: 74 / MDate of Service: 07/30/20Loc: EDAccession Number: [id number] Procedure: CT angio chest PE protocol Ordering Provider: Haylee Veliz D.O. PROCEDURE: CT ANGIO CHEST PE PROTOCOL INDICATIONS: Short of breath, abd, no bm's TECHNIQUE: After the administration of intravenous contrast, 2 mm thick sections acquired from the pulmonary apices to the posterior costophrenic angles. 3-dimensional maximum intensity projection (MIP) coronal and sagittal reformats were then acquired through the thorax. For radiation dose reduction, the following was used: automated exposure control, adjustment of mA and/or kV according to patient size. COMPARISON: [facility], CT, CT ABDOMEN PELVIS W CON, 07/30/2020, 12:53. [facility], CT, CT CHEST ABD PEL W CON, 07/15/2020, 11:05. [facility], CR, XR CHEST 1 VIEW, 07/16/2020, 23:30. [facility], CR, XR CHEST 1V, 07/30/2020, 12:25. FINDINGS: Image quality: Excellent. Pulmonary arteries: Pulmonary arteries are normal in size, and demonstrate no intraluminal filling defects to suggest central pulmonary embolism. Lungs and pleura: Within the right upper lobe posteriorly, there is again seen a stable solid and cavitary lesion, as on series 5, image 136. There is a small left-sided pleural effusion, with overlying enhancing atelectasis. No pneumothorax. Central and peripheral airways are patent. Mediastinum: Heart size is normal, without pericardial effusion. Moderate to prominent coronary artery calcification is seen. No mediastinal or hilar adenopathy. Thoracic aorta is normal in caliber and enhancement. Esophagus is normal in caliber, without hiatal hernia. Bones and chest wall: No suspicious bony lesions. No acute fracture can be seen. There is at least 1 remote left posterolateral rib fracture, as on series 4, image 143. Relatively prominent bony degenerative changes can be seen. Thyroid gland demonstrates no significnt abnormality. No axillary or supraclavicular adenopathy. Abdomen: Moderate free intraperitoneal gas is seen. IMPRESSION: Negative for pulmonary embolism. Moderate free intraperitoneal gas can be seen. Please see the accompanying report of the CT of the abdomen and pelvis. Small left-sided pleural effusion, with overlying enhancing atelectasis. Stable right upper lobe solid and cavitary lesion. Incidental note is made of: Moderate to prominent coronary artery calcification Remote left posterolateral rib fracture Note: Case discussed by telephone with Dr. Veliz at 12:35 p.m. [place] time on July 30, 2020. Dictated by: Charles Alanis M.D. on 07/30/2020 at 12:26 Approved by: Charles Alanis M.D. on 07/30/2020 at 12:35 CT scan - abdomen/pelvis: Radiologist's Impression: [address] [id number] Scan ReportSigned Patient: Ted Perez CMR#: [id number]: 7Acct:[id number]/Sex: 74 / MDate of Service: 07/30/20Loc: EDAccession Number: [id number] Procedure: CT abdomen pelvis w con Ordering Provider: Mank,Haylee C D.O. PROCEDURE: CT ABDOMEN PELVIS W CON INDICATIONS: abdominal pain, sob, no BM x 4 days, ? n/v TECHNIQUE: After the administration of intravenous contrast, 5 mm thick sections acquired from the diaphragm to the symphysis. 5 mm coronal and sagittal reformats were acquired. For radiation dose reduction, the following was used: automated exposure control, adjustment of mA and/or kV according to patient size. COMPARISON: [facility], CT, CT CHEST ABD PEL W CON, 07/15/2020, 11:05. [facility], CT, CT ANGIO CHEST PE PROTOCOL, 07/30/2020, 12:53. FINDINGS: Image quality: Excellent. ABDOMEN: Lung bases: There is a small left-sided pleural effusion. Heart size is normal. At least moderate coronary artery calcification is seen. Solid organs: Liver is normal in size and enhancement. Gallbladder demonstrates no significant abnormality. Biliary system is non dilated. Pancreas enhances normally. Spleen is normal in size and enhancement. No adrenal nodules. Kidneys demonstrate normal size and enhancement, without hydronephrosis. Peritoneum and bowel: There is moderate free intraperitoneal gas seen. The site of the perforation is not clearly identified, although it is suspected to be within the proximal duodenum, given the focal fluid and gas at this site, as on series 11, image 45. There is a mild degree of ascites seen. The ascites measures water density and is simple ascites. Generalized wall thickening can be seen of the small bowel, particularly proximally. A moderate amount of stool can be seen within the colon. There is density seen within the cc of the distal colon, which is attributed to the previously administered oral contrast from the 07/15/2020 examination. Nodes and vessels: No retroperitoneal or mesenteric adenopathy by size criteria. Aorta and inferior vena cava are normal in size. Dense atherosclerotic calcification is seen. Miscellaneous: No ventral hernias. PELVIS: Genitourinary: A Molina catheter is seen, which decompresses the bladder. Miscellaneous: No inguinal adenopathy. Small bilateral inguinal hernias are seen, which contain fat and fluid on the right and fat on the left. Bones: No suspicious bony lesions. No vertebral body compression fractures. Mild levoconvex scoliotic curvature is noted. Age-appropriate bony degenerative changes are seen. IMPRESSION: A moderate amount of free intraperitoneal gas is seen, which represents perforation till proven otherwise. The site of the perforation is not clearly seen, although it is suspected to be within the proximal duodenum. Urgent surgical consultation is recommended. There is a mild amount of ascites. Generalized small bowel wall thickening is seen. Small left-sided pleural effusion. Incidental note is made of: Bilateral inguinal hernias Molina catheter Atherosclerotic calcification, including involving the coronary arteries Note: Case discussed by telephone with Dr. Veliz at 12:35 p.m. on July 30, 2020. Dictated by: Charles Alanis M.D. on 07/30/2020 at 12:36 Approved by: Charles Alanis M.D. on 07/30/2020 at 12:39 ECG Data Attestation: I personally reviewed and interpreted this ECG as follows: Prior ECG tracings: not available for review Interpretation: Sinus tachycardia, rate of 116 KS 160 QRS of 104 and QTC 444. No acute ST elevation appreciated. Impression in and aVL. No prior available MDM Narrative Medical decision making narrative: A 74-year-old male comes in with abdominal, hypoxia and nausea and vomiting as well as no bowel movement for several days. On evaluation initially patient is hypoxic, hypotensive and tachycardic. Patient's pressure responded quickly to fluids. His hypoxia continued but did improve here in the department. CT does not show pulmonary emboli. CT of the abdomen pelvis was included as patient has been quite uncomfortable. Appears to have free air but without a clear source. Discussed with General surgery who accepts implants take patient to OR. Patient was comfort measures but after discussion decision was made to take to the OR after he and his family were evaluated by the general surgeon. Dr. Quinteros from the hospitalist service also saw the patient here in the department and will assist with patient care. Critical Care Time Critical Care Time Critical Care Time: Yes Total Critical Care Time: 75 Attestation: The high probability of a clinically significant, sudden or life threatening deterioration of the [cardiac] system(s) required my full and direct attention, intervention and personal management. The aggregate critical care time [id number]. This time is in addition to time spent performing reported procedures but includes the following: [x] Data Review and interpretation [x] Patient assessment and monitoring of vital signs [x] Documentation [x] Medication orders and management Discharge Plan Departure Patient Disposition: Admitted to Surgery Clinical Impression: Intra-abdominal free air of unknown etiology, Pleural effusion on left Admit Date/Time: 07/30/20 15:23 Admit Provider: Flor Cueva
[2020-07-30] MEDS: fentaNYL 100 MCG/2 ML INJ 25 MCG IV ×7 (12:26→23:50)
[2020-07-30] MEDS: ONDANSETRON 4 MG/2 ML INJ IV (12:28)
[2020-07-30] MEDS: SODIUM CHLORIDE 0.9% 1,000 ML 1000 ML IV (12:28)
[2020-07-30] MEDS: methylPREDNISolone 125 MG/2 ML VIAL IV (12:28)
[2020-07-30 12:32] LABS: Add Manual Diff / Slide Review NO; Basophils Absolute Auto 0 /uL (0-100); Basophils Percent Auto 0.2 % (0-2); Eosinophils Absolute Auto 0 /uL (0-450); Hematocrit 42.6 % (41-53); Hemoglobin 13.8 g/dL (13.5-17.5); Lymphocytes Absolute Auto 500 /uL (1100-4500); Lymphocytes Percent Auto 2.3 % (25-40); Mean Corpuscular HGB Conc 32.4 % (30-36); Mean Corpuscular Hemoglobin 28.9 PG (26-34); Mean Corpuscular Volume 89.1 fL (80-100); Monocytes Absolute Auto 1500 /uL (0-900); Monocytes Percent Auto 7.3 % (3-14); Neutrophils Absolute Auto 18000 /uL (1500-7000); Neutrophils Percent Auto 90.2 % (50-75); Platelet Count 369 X10^3/uL (150-400); Red Blood Cell Count 4.78 X10^6/uL (4.5-5.9)
[2020-07-30 12:46] LABS: HEMOLYSIS < 15 (0-50)
[2020-07-30 12:52] LABS: Alanine Aminotransferase 19 IU/L (<50); Albumin Globulin Ratio 1.2 (1.0-2.8); Alkaline Phosphatase 131 U/L (38-126); Aspartate Aminotransferase 22 IU/L (17-59); BUN Creatinine Ratio 32.9 (6-22); Bilirubin Total 0.8 mg/dL (0.2-1.3); Blood Urea Nitrogen 73 mg/dL (9-20); Calcium 10.2 mg/dL (8.4-10.2); Carbon Dioxide 28 mmol/L (22-32); Chloride 95 mmol/L (98-107); Creatine Kinase 27 U/L (55-170); Estimated Glomerular Filt Rate 29.2 mL/min (>60); Globulin 3.3 g/dL (1.7-4.1); Glucose 222 mg/dL (80-110); Lipase 183 U/L (23-300); Magnesium 1.8 mg/dL (1.6-2.3); Potassium 4.9 mmol/L (3.4-5.1); Sodium 134 mmol/L (137-145); Total Protein 7.3 g/dL (6.3-8.2)
[2020-07-30 12:54] LABS: COVID19 -Nasal RAPID Negative (Negative)
[2020-07-30 12:55] LABS: INR 1.1 (0.9-1.3); Prothrombin Time 12.2 SECONDS (10.1-12.7)
[2020-07-30 12:55] LABS: Bacteria Urine None Seen; RBC Urine None Seen (0-5/HPF)
[2020-07-30 12:57] LABS: Appearance Urine UA CLEAR; Bilirubin Urine UA NEGATIVE (NEGATIVE); Color Urine UA YELLOW; Glucose Urine UA TRACE g/dL (Negative); Ketones Urine UA NEGATIVE (NEGATIVE); Leukocyte Esterase Urine UA NEGATIVE (NEGATIVE); Nitrite Urine UA NEGATIVE (Negative); Occult Blood Urine UA NEGATIVE (Negative); Protein Urine UA 2+ (Negative); Specific Gravity Urine UA 1.025 (1.000-1.035); Urobilinogen Urine UA 0.2 E.U./dL (0.2)
[2020-07-30 12:58] LABS: D Dimer 620 ng/mL (<230); PTT Partial Thromboplastin Tim 44 SECONDS (26.4-36.2)
[2020-07-30 12:59] LABS: Fractionated Inspired Oxygen 100; HCO3 ABG 26 mmol/L (22-26); Oxygen Saturation ABG 99 % (95-100); PO2 ABG 113 mmHg (80-100); TCO2 ABG 27 mmol/L (21-31); pH ABG 7.44 (7.35-7.45)
[2020-07-30 13:05] LABS: NT-proBNP (BNP-Adult 18+) 274 pg/mL (<125); Troponin I 0.017 ng/mL (0.01-0.034)
--- NOTE | 2020-07-30 13:05 | PC.NURSE ---
O2 Sat probe changed to ear instead of finger. Fingers are cold and gripping siderail so unable to get an accurate reading. Ear shows 100% O2 on Non rebreather. Patient decreased to 4L NC and maintaining saturation at 98%. Color is pink. No shortness of breath. Patient complains of severe pain in lower abdomen and is tender to the touch.
[2020-07-30 13:06] LABS: Lactate (Lactic Acid) 2.2 mmol/L (0.7-2.1)
[2020-07-30 13:08] LABS: Procalcitonin 1.32 ng/mL (<0.5)
[2020-07-30 13:09] LABS: Culture Indicated Urine Cult Not Indicated; Mucus Urine 1+ (Negative); Squamous Epithelial Cell Urine 0-1 /HPF (0-5/HPF); WBC Urine 0-1/HPF (0-5/HPF)
[2020-07-30 13:38] LABS: COVID19 - ADMIT (NP swab/PCR) Negative (Negative)
--- NOTE | 2020-07-30 13:38 | RT ---
Called by Nurse Nelson requesting we try another oxygen modality. Pt was on NRB at 15 LPM, was weaned by Nurse Nelson to standard nasal cannula @ 6lpm, which pt is hypoxic on. Trial of high flow nasal cannula (w/humidity) at 12 lpm started, O2 sats 92-94%. Nurse Nelson informed.
[2020-07-30] MEDS: LACTATED RINGERS 887.68 ML IV ×2 (14:13→17:03)
[2020-07-30] MEDS: PIPERACILLIN/TAZO 4.5 GM in SODIUM CHLORIDE 0.9% 100 ML 200 ML IV (14:15)
[2020-07-30] MEDS: metroNIDAZOLE 500 MG/100 ML PIGGYBACK 100 MG IV ×2 (14:36→22:03)
[2020-07-30 14:50] LABS: Reflexed Lactate in 2 Hours Y
--- NOTE | 2020-07-30 15:17 | P.CONS_ITS ---
History of Present Illness Consult details Date Patient Seen: 07/30/20 Time Patient Seen: 15:17 Chief complaint: abd pain/ desat Reason for consult: Abdominal pain, free air Requesting provider: Haylee Veliz Narrative: This is a 74 yo man who c/o one month of abdominal pain, which became much worse today leading to his ER visit. He describes the month of pain as constant upper abdominal pain which gets worse after eating. Over the past day his pain has become unbearable in the upper abdomen, and now he has pain in the lower abdomen. He has been taking ibuprofen for his pain for the past month, and he reports he takes about ten ibuprofen per day. He has a known cavitary lesion in his chest for which he was transferred to [facility] last month. He is a smoker, and has a history of HTN, DM2, GERD, BPH. He says he has not eaten in several days. CT scan in the ER reveals significant free air, and no clear source. WBC is 20. His daughter and son have been called and are coming from [facility], per the ER staff. ROS: SOB, nausea, vomiting, abdominal pain, urinary retention; thirteen system revi ew is otherwise negative other than as mentioned below and in HPI. PE: GENERAL: Alert, in significant distress due to abdominal pain. Appears stated age. Answers questions promptly and appropriately. Vital signs noted. HENT: Normocephalic, atraumatic. Hearing intact. EYES: Conjunctiva pink, sclera white, no periorbital swelling. CARDIOVASCULAR: Tachycardic in the 110's. No pedal edema. RESPIRATORY: Mild tachypnea, satting 95% on 12L/min NC. No accessory muscle use; able to speak in full sentences. GASTROINTESTINAL: Abdomen moderately distended, TTP in upper and lower abdomen, no visible scars GENITALURINARY: No flank tenderness. MUSCULOSKELETAL: Equal tone and mass bilaterally. SKIN: Warm, dry, soft, appropriate color for ethnicity. No other lesions, rashes, or wounds. NEURO: Alert and Oriented to self and situation. No gross sensory deficits, or cognitive issues. PSYCH: Appropriate affect and mood. Meds Home Medications and Allergies Home Medications Medication Instructions Recorded Confirmed Type Metformin Hydrochloride 1,000 mg PO BID #1 12/18/08 07/30/20 History (Glucophage) finasteride 5 mg PO QDAY #0 02/26/16 07/30/20 History glipizide [Glucotrol XL] 5 mg PO QDAY #0 02/26/16 07/30/20 History lisinopril 10 mg PO QDAY #0 02/26/16 07/30/20 History lovastatin 20 mg PO QDAY #0 02/26/16 07/30/20 History meloxicam 15 mg PO DAILY #0 02/26/16 07/15/20 History omeprazole 40 mg PO QAM 14 Days #0 cap 02/26/16 Rx potassium citrate 10 meq PO DAILY 07/15/20 07/15/20 History tamsulosin 0.8 mg PO DAILY 07/15/20 07/30/20 History amlodipine 5 mg PO DAILY 07/30/20 07/30/20 History gabapentin 100 mg PO BEDTIME 07/30/20 07/30/20 History hydrocodone-acetaminophen 1 tab PO Q6H PRN 07/30/20 07/30/20 History Allergies Allergy/AdvReac Type Severity Reaction Status Date / Time No Known Drug Allergies Allergy Verified 07/30/20 12:25 Exam Vital Signs (past 8 hours): - 07/30/20 12:10 07/30/20 12:16 07/30/20 12:20 Temperature 97.9 F Pulse Rate 110 H 116 H 118 H Respiratory Rate 40 H 34 H 36 H Blood Pressure 82/49 L 109/58 L Pulse Oximetry 81 L 89 L 96 07/30/20 12:28 07/30/20 12:30 07/30/20 12:31 Temperature Pulse Rate 122 H 125 H Respiratory Rate 48 H 46 H 24 Blood Pressure 103/75 Pulse Oximetry 99 91 96 07/30/20 12:33 07/30/20 12:40 07/30/20 12:50 Temperature Pulse Rate 121 H 123 H 124 H Respiratory Rate 33 H 34 H 36 H Blood Pressure 107/67 102/58 L 129/63 Pulse Oximetry 97 98 98 07/30/20 13:06 07/30/20 13:13 07/30/20 13:15 Temperature Pulse Rate 126 H 125 H Respiratory Rate 35 H Blood Pressure 126/66 Pulse Oximetry 98 90 L 07/30/20 13:20 07/30/20 13:30 07/30/20 13:40 Temperature Pulse Rate 125 H 124 H 124 H Respiratory Rate 31 H 32 H 25 H Blood Pressure 137/65 138/69 146/72 H Pulse Oximetry 90 L 82 L 93 07/30/20 13:50 07/30/20 14:00 07/30/20 14:10 Temperature Pulse Rate 124 H 124 H 122 H Respiratory Rate 29 H 25 H 25 H Blood Pressure 146/69 H 145/73 H 154/77 H Pulse Oximetry 92 94 95 07/30/20 14:20 07/30/20 14:30 Temperature Pulse Rate 120 H 117 H Respiratory Rate 35 H 22 Blood Pressure 152/72 H 164/79 H Pulse Oximetry 94 94 Oxygen Delivery Method High Flow Nasal Cannula Oxygen Flow Rate [address] scan - abdomen: Radiologist's impression: [address] [id number] Scan ReportSigned Patient: Ted Perez CMR#: [id number]: 7Acct:[id number]/Sex: 74 / MDate of Service: 07/30/20Loc: EDAccession Number: [id number] Procedure: CT abdomen pelvis w con Ordering Provider: Haylee Veliz D.O. PROCEDURE: CT ABDOMEN PELVIS W CON INDICATIONS: abdominal pain, sob, no BM x 4 days, ? n/v TECHNIQUE: After the administration of intravenous contrast, 5 mm thick sections acquired from the diaphragm to the symphysis. 5 mm coronal and sagittal reformats were acquired. For radiation dose reduction, the following was used: automated exposure control, adjustment of mA and/or kV according to patient size. COMPARISON: [facility], CT, CT CHEST ABD PEL W CON, 07/15/2020, 11:05. [facility], CT, CT ANGIO CHEST PE PROTOCOL, 07/30/2020, 12:53. FINDINGS: Image quality: Excellent. ABDOMEN: Lung bases: There is a small left-sided pleural effusion. Heart size is normal. At least moderate coronary artery calcification is seen. Solid organs: Liver is normal in size and enhancement. Gallbladder de monstrates no significant abnormality. Biliary system is non dilated. Pancreas enhances normally. Spleen is normal in size and enhancement. No adrenal nodules. Kidneys demonstrate normal size and enhancement, without hydronephrosis. Peritoneum and bowel: There is moderate free intraperitoneal gas seen. The site of the perforation is not clearly identified, although it is suspected to be within the proximal duodenum, given the focal fluid and gas at this site, as on series 11, image 45. There is a mild degree of ascites seen. The ascites measures water density and is simple ascites. Generalized wall thickening can be seen of the small bowel, particularly proximally. A moderate amount of stool can be seen within the colon. There is density seen within the cc of the distal colon, which is attributed to the previously administered oral contrast from the 07/15/2020 examination. Nodes and vessels: No retroperitoneal or mesenteric adenopathy by size criteria. Aorta and inferior vena cava are normal in size. Dense atherosclerotic calcification is seen. Miscellaneous: No ventral hernias. PELVIS: Genitourinary: A Molina catheter is seen, which decompresses the bladder. Miscellaneous: No inguinal adenopathy. Small bilateral inguinal hernias are seen, which contain fat and fluid on the right and fat on the left. Bones: No suspicious bony lesions. No vertebral body compression fractures. Mild levoconvex scoliotic curvature is noted. Age-appropriate bony degenerative changes are seen. IMPRESSION: A moderate amount of free intraperitoneal gas is seen, which represents perforation till proven otherwise. The site of the perforation is not clearly seen, although it is suspected to be within the proximal duodenum. Urgent surgical consultation is recommended. There is a mild amount of ascites. Generalized small bowel wall thickening is seen. Small left-sided pleural effusion. Incidental note is made of: Bilateral inguinal hernias Molina catheter Atherosclerotic calcification, including involving the coronary arteries Note: Case discussed by telephone with Dr. Veliz at 12:35 p.m. on July 30, 2020. Labs Result Diagrams: 07/30/20 12:14 07/30/20 12:14 Labs: Laboratory Results - last 24 hr 07/30/20 07/30/20 07/30/20 12:14 12:14 12:14 WBC 20.0 H RBC 4.78 Hgb 13.8 Hct 42.6 MCV 89.1 MCH 28.9 MCHC 32.4 RDW 16.0 H Plt Count 369 Neut % (Auto) 90.2 H Lymph % (Auto) 2.3 L [place] % (Auto) 7.3 Eos % (Auto) 0.0 L Baso % (Auto) 0.2 Neut # (Auto) 25729 H Lymph # (Auto) 500 L [place] # (Auto) 1500 H Eos # (Auto) 0 Baso # (Auto) 0 PT 12.2 INR 1.1 APTT 44 H D-Dimer 620 H ABG pH ABG pCO2 ABG pO2 ABG HCO3 ABG Total CO2 ABG O2 Saturation ABG Base Excess FiO2 Sodium 134 L Potassium 4.9 Chloride 95 L Carbon Dioxide 28 BUN 73 H Creatinine 2.22 H Estimated GFR 29.2 L BUN/Creatinine Ratio 32.9 H Glucose 222 H Lactate Calcium 10.2 Magnesium 1.8 Total Bilirubin 0.8 AST 22 ALT 19 Alkaline Phosphatase 131 H Total Creatine Kinase 27 L CK-MB (CK-2) TNP CK-MB (CK-2) Rel Index TNP Troponin I 0.017 NT-Pro-B Natriuret Pep 274 H Total Protein 7.3 Albumin 4.0 Globulin 3.3 Albumin/Globulin Ratio 1.2 Lipase 183 Procalcitonin 1.32 H Urine Color Urine Appearance Urine pH Ur Specific [place] Urine Protein Urine Glucose (UA) Urine Ketones Urine Occult Blood Urine Nitrate Urine Bilirubin Urine Urobilinogen Ur Leukocyte Esterase Urine RBC Urine WBC Ur Squamous Epith Cells Urine Bacteria Urine Mucus Ur Culture Indicated? SARS-CoV-2 (PCR) 07/30/20 07/30/20 07/30/20 12:15 12:37 12:40 WBC RBC Hgb Hct MCV MCH MCHC RDW Plt Count Neut % (Auto) Lymph % (Auto) [place] % (Auto) Eos % (Auto) Baso % (Auto) Neut # (Auto) Lymph # (Auto) [place] # (Auto) Eos # (Auto) Baso # (Auto) PT INR APTT D-Dimer ABG pH ABG pCO2 ABG pO2 ABG HCO3 ABG Total CO2 ABG O2 Saturation ABG Base Excess FiO2 Sodium Potassium Chloride Carbon Dioxide BUN Creatinine Estimated GFR BUN/Creatinine Ratio Glucose Lactate 2.2 H Calcium Magnesium Total Bilirubin AST ALT Alkaline Phosphatase Total Creatine Kinase CK-MB (CK-2) CK-MB (CK-2) Rel Index Troponin I NT-Pro-B Natriuret Pep Total Protein Albumin Globulin Albumin/Globulin Ratio Lipase Procalcitonin Urine Color Yellow Urine Appearance Clear Urine pH 6.0 Ur Specific [place] 1.025 Urine Protein 2+ H Urine Glucose (UA) Trace H Urine Ketones Negative Urine Occult Blood Negative Urine Nitrate Negative Urine Bilirubin Negative Urine Urobilinogen 0.2 Ur Leukocyte Esterase Negative Urine RBC None seen Urine WBC 0-1/hpf Ur Squamous Epith Cells 0-1 /hpf Urine Bacteria None seen Urine Mucus 1+ H Ur Culture Indicated? Cult not indicated SARS-CoV-2 (PCR) Negative 07/30/20 07/30/20 12:40 12:43 WBC RBC Hgb Hct MCV MCH MCHC RDW Plt Count Neut % (Auto) Lymph % (Auto) [place] % (Auto) Eos % (Auto) Baso % (Auto) Neut # (Auto) Lymph # (Auto) [place] # (Auto) Eos # (Auto) Baso # (Auto) PT INR APTT D-Dimer ABG pH 7.44 ABG pCO2 38.0 ABG pO2 113 H ABG HCO3 26 ABG Total CO2 27 ABG O2 Saturation 99 ABG Base Excess 1.0 FiO2 100 Sodium Potassium Chloride Carbon Dioxide BUN Creatinine Estimated GFR BUN/Creatinine Ratio Glucose Lactate Calcium Magnesium Total Bilirubin AST ALT Alkaline Phosphatase Total Creatine Kinase CK-MB (CK-2) CK-MB (CK-2) Rel Index Troponin I NT-Pro-B Natriuret Pep Total Protein Albumin Globulin Albumin/Globulin Ratio Lipase Procalcitonin Urine Color Urine Appearance Urine pH Ur Specific [place] Urine Protein Urine Glucose (UA) Urine Ketones Urine Occult Blood Urine Nitrate Urine Bilirubin Urine Urobilinogen Ur Leukocyte Esterase Urine RBC Urine WBC Ur Squamous Epith Cells Urine Bacteria Urine Mucus Ur Culture Indicated? SARS-CoV-2 (PCR) Negative Assessment & Plan Assessment and plan (1) Intra-abdominal free air of unknown etiology: Status: Acute (2) Pleural effusion on left: Status: Acute (3) History of peptic ulcer: Status: Acute (4) DM2 (diabetes mellitus, type 2): Status: Acute (5) HTN (hypertension): Status: Acute (6) Smoker: Status: Acute Assessment & Plan narrative: This is a 74-year-old man in acute distress, with free air on his abdominal CT scan. Given his last 1 month of upper abdominal pain, and the increasing severity of his pain today with new pain in the lower abdomen the 1 into the on our differential is a perforated peptic ulcer. His CT scan does not give a clear conclusion, but this is the greatest likelihood. I have explained to the patient that is possible we may find something else such as necrotic small bowel, or a perforation in the colon. I have explained to him that we will try to approach this laparoscopically, but we may need to make a full open incision in order complete the abdominal exploration, and to treat we find. Risks and benefits of laparoscopic possible open abdominal exploration with possible bowel resection, possible ostomy were discussed with the patient. Risk of bleeding, infection, damage to nearby structures, need for additional procedures, prolonged hospital stay, postoperative pain and scarring, need for transfer to a higher level of care, worsening medical comorbidities, sepsis, were discussed. I explained that there is not really a medical management option for this without surgery, and less you would just prefer comfort care without any intervention for what ever has caused his free air. The patient verbalizes that he would like to go ahead with surgery, and verbalizes underst anding of the risks as they have been explained. Plan: Urgently to OR for laparoscopic possible open abdominal exploration, repair perforation, possible bowel resection, possible ostomy. COVID-19 COVID-19 status: Negative Result date/Date tested (Pos, Neg/Pending): 07/30/20 Time Spent With Patient Time with patient: 25 - 35 minutes
[2020-07-30 15:28] LABS: Lactate 2HR (Lactic Acid Rflx) 3.1 mmol/L (0.7-2.1)
[2020-07-30] MEDS: HYDROMORPHONE 1 MG INJ IV (15:31)
--- NOTE | 2020-07-30 16:43 | SUR.HOLD ---
Report received from JOHANNE Nelson in the emergency room. Pt is awake and alert. C/O abdominal pain 02 sats 94% on 12L high flow cannula. Pt transferred to OR. Received by JOHANNE Ann.
--- NOTE | 2020-07-30 16:59 | SUR.OPER ---
Supine on padded OR bed, head on pillow, arms padded and tucked at sides with draw sheet, legs uncrossed, safety belt at thigh, tape over blanket over lower legs.
[2020-07-30] MEDS: LACTATED RINGERS 1,000 ML 42 ML IV ×2 (17:03→19:09)
--- NOTE | 2020-07-30 17:09 | SUR.OPER ---
CBG 249 @ 9811. Checked per Dr. Thakkar's verbal order.
[2020-07-30] MEDS: INSULIN REGULAR 100 UNIT/ML 3 ML VIAL 10 UNIT SUBCUT ×2 (17:10→18:15)
--- NOTE | 2020-07-30 17:27 | PM.HP.1 ---
History of Present Illness History of Present Illness Date Patient Seen: 07/30/20 Time Patient Seen: 13:00 Chief complaint: abd pain/ desat Narrative: This is a 74-year-old male with a past medical history of hypertension, hyperlipidemia, BPH, type 2 diabetes, tobacco use, cataracts who has been dealing with abdominal pain, nausea, vomiting, and decreased appetite since he received his 2nd COVID vaccination on June 25. Over this time he has had frequent watery diarrhea with any oral intake, and was recently admitted to [facility] after initial presentation of the symptoms as his CT scan showed a cavitary 1.7 cm lesion in the right apex. TB was deemed low risk at that time by Pulmonary consultation, and recommended CT chest imaging in 3-6 months for further evaluation. He describes abdominal pain as upper abdominal pain without radiation to the back. It gets worse with eating. Starting yesterday evening he started having severe abdominal pain all over his abdomen and he has not eaten in several days. He has been taking ibuprofen for the pain. In the emergency room, the patient was tachycardic, hypotensive but responded to fluid boluses, tachypneic and hypoxic on room air. Laboratory evaluation revealed a WBC of 20, with 90% neutrophils. D-dimer was negative for age at 620. INR was 1.1. ABG on 100% FiO2 via non-rebreather mask showed a PO2 of 113. Chemistries revealed a creatinine of 2.22, with a BUN of 73. Sodium was 134. Lactate was initially 2.2 but increased to 3.1. ProBNP was only mildly elevated at 274, troponin was 0.017. Procalcitonin was 1.32. Lipase was 183. Urinalysis did not show any evidence of infection. COVID-[address] scan of his abdomen showed intra-abdominal free air. CT angiogram of his chest showed a stable cavitary lesion and a stable pleural effusion on the left, no pulmonary embolism. Patient was taken emergently for surgery, medicine was asked to admit for additional management after surgery of his sepsis and complex medical issues. Medications are based on history in the computer, he did not know his current medications neither did his son. Unable to be reconciled at this time due to emergent surgery. Patient History Medical History BPH (benign prostatic hyperplasia) Chronic kidney disease DM2 (diabetes mellitus, type 2) HTN (hypertension) Smoker Comment: No relevant past surgical history Family & Social History Social History: Stopped smoking June 25, prior daily smoker Minimal Etoh, denies illicit substance use. Safety & Behavioral: Feels Safe in Current Yes Environment Been Physically Hurt or No Threatened By a Person Tobacco & Substance use: Smoking Status Current every day smoker alcohol intake frequency 0-2 drinks per day Substance Use Type does not use Meds Home Medications and Allergies Home Medications Medication Instructions Recorded Confirmed Type Metformin Hydrochloride 1,000 mg PO BID #1 12/18/08 07/30/20 History (Glucophage) finasteride 5 mg PO QDAY #0 02/26/16 07/30/20 History glipizide [Glucotrol XL] 5 mg PO QDAY #0 02/26/16 07/30/20 History lisinopril 10 mg PO QDAY #0 02/26/16 07/30/20 History lovastatin 20 mg PO QDAY #0 02/26/16 07/30/20 History meloxicam 15 mg PO DAILY #0 02/26/16 07/15/20 History omeprazole 40 mg PO QAM 14 Days #0 cap 02/26/16 Rx potassium citrate 10 meq PO DAILY 07/15/20 07/15/20 History tamsulosin 0.8 mg PO DAILY 07/15/20 07/30/20 History amlodipine 5 mg PO DAILY 07/30/20 07/30/20 History gabapentin 100 mg PO BEDTIME 07/30/20 07/30/20 History hydrocodone-acetaminophen 1 tab PO Q6H PRN 07/30/20 07/30/20 History Allergies Allergy/AdvReac Type Severity Reaction Status Date / Time No Known Drug Allergies Allergy Verified 07/30/20 12:25 Review of Systems Review of Systems Narrative: All other systems reviewed with the patient and are negative unless otherwise stated. Exam Vital Signs (past 8 hours): - 07/30/20 12:10 07/30/20 12:16 07/30/20 12:20 Temperature 97.9 F Pulse Rate 110 H 116 H 118 H Respiratory Rate 40 H 34 H 36 H Blood Pressure 82/49 L 109/58 L Pulse Oximetry 81 L 89 L 96 07/30/20 12:28 07/30/20 12:30 07/30/20 12:31 Temperature Pulse Rate 122 H 125 H Respiratory Rate 48 H 46 H 24 Blood Pressure 103/75 Pulse Oximetry 99 91 96 07/30/20 12:33 07/30/20 12:40 07/30/20 12:50 Temperature Pulse Rate 121 H 123 H 124 H Respiratory Rate 33 H 34 H 36 H Blood Pressure 107/67 102/58 L 129/63 Pulse Oximetry 97 98 98 07/30/20 13:06 07/30/20 13:13 07/30/20 13:15 Temperature Pulse Rate 126 H 125 H Respiratory Rate 35 H Blood Pressure 126/66 Pulse Oximetry 98 90 L 07/30/20 13:20 07/30/20 13:30 07/30/20 13:40 Temperature Pulse Rate 125 H 124 H 124 H Respiratory Rate 31 H 32 H 25 H Blood Pressure 137/65 138/69 146/72 H Pulse Oximetry 90 L 82 L 93 07/30/20 13:50 07/30/20 14:00 07/30/20 14:10 Temperature Pulse Rate 124 H 124 H 122 H Respiratory Rate 29 H 25 H 25 H Blood Pressure 146/69 H 145/73 H 154/77 H Pulse Oximetry 92 94 95 07/30/20 14:20 07/30/20 14:30 07/30/20 14:40 Temperature Pulse Rate 120 H 117 H 116 H Respiratory Rate 35 H 22 23 Blood Pressure 152/72 H 164/79 H 156/76 H Pulse Oximetry 94 94 94 07/30/20 14:50 07/30/20 15:00 07/30/20 15:10 Temperature Pulse Rate 117 H 116 H 116 H Respiratory Rate 29 H 34 H 44 H Blood Pressure 142/65 H 151/71 H 168/78 H Pulse Oximetry 93 93 91 07/30/20 15:20 07/30/20 15:30 07/30/20 15:40 Temperature Pulse Rate 116 H 115 H 115 H Respiratory Rate 31 H 30 H 35 H Blood Pressure 167/81 H 159/70 H 148/76 H Pulse Oximetry 93 92 94 07/30/20 15:50 Temperature Pulse Rate 115 H Respiratory Rate 27 H Blood Pressure 148/68 H Pulse Oximetry 94 Oxygen Delivery Method High Flow Nasal Cannula Oxygen Flow Rate 12 Narrative Exam Narrative: GENERAL APPEARANCE: Acutely ill-appearing male, extremely uncomfortable on ER stretcher. SKIN: Inspection of the skin reveals no rashes, ulcerations or petechiae. HEENT: Normocephalic atraumatic, extraocular muscles are intact, oropharynx is clear and mucous membranes are moist, neck is supple without adenopathy NECK: Supple and symmetric. There was no thyroid enlargement, and no tenderness, or masses were felt. CHEST: Normal AP diameter and normal contour without any kyphoscoliosis. LUNGS: Shallow breath sounds but no obvious wheezes, rhonchi, or rales. Inspiration limited by abdominal pain. CARDIOVASCULAR: tachycardic with regular rhythm without murmurs, rubs, or gallops. Peripheral pulses were 2+ and symmetric. ABDOMEN: Extremely tender and distended. MUSCULOSKELETAL: There was no tenderness or effusions noted. Muscle strength and tone were normal. EXTREMITIES: No cyanosis, clubbing or edema. NEUROLOGIC: Alert and oriented x 3. No focal deficits. Objective Labs Result Diagrams: 07/30/20 12:14 07/30/20 12:14 Labs: Laboratory Results - last 24 hr 07/30/20 07/30/20 07/30/20 12:14 12:14 12:14 WBC 20.0 H RBC 4.78 Hgb 13.8 Hct 42.6 MCV 89.1 MCH 28.9 MCHC 32.4 RDW 16.0 H Plt Count 369 Neut % (Auto) 90.2 H Lymph % (Auto) 2.3 L Simpson % (Auto) 7.3 Eos % (Auto) 0.0 L Baso % (Auto) 0.2 Neut # (Auto) 71478 H Lymph # (Auto) 500 L Simpson # (Auto) 1500 H Eos # (Auto) 0 Baso # (Auto) 0 PT 12.2 INR 1.1 APTT 44 H D-Dimer 620 H ABG pH ABG pCO2 ABG pO2 ABG HCO3 ABG Total CO2 ABG O2 Saturation ABG Base Excess FiO2 Sodium 134 L Potassium 4.9 Chloride 95 L Carbon Dioxide 28 BUN 73 H Creatinine 2.22 H Estimated GFR 29.2 L BUN/Creatinine Ratio 32.9 H Glucose 222 H Lactate Calcium 10.2 Magnesium 1.8 Total Bilirubin 0.8 AST 22 ALT 19 Alkaline Phosphatase 131 H Total Creatine Kinase 27 L CK-MB (CK-2) TNP CK-MB (CK-2) Rel Index TNP Troponin I 0.017 NT-Pro-B Natriuret Pep 274 H Total Protein 7.3 Albumin 4.0 Globulin 3.3 Albumin/Globulin Ratio 1.2 Lipase 183 Procalcitonin 1.32 H Urine Color Urine Appearance Urine pH Ur Specific [place] Urine Protein Urine Glucose (UA) Urine Ketones Urine Occult Blood Urine Nitrate Urine Bilirubin Urine Urobilinogen Ur Leukocyte Esterase Urine RBC Urine WBC Ur Squamous Epith Cells Urine Bacteria Urine Mucus Ur Culture Indicated? SARS-CoV-2 (PCR) 07/30/20 07/30/20 07/30/20 12:15 12:37 12:40 WBC RBC Hgb Hct MCV MCH MCHC RDW Plt Count Neut % (Auto) Lymph % (Auto) Simpson % (Auto) Eos % (Auto) Baso % (Auto) Neut # (Auto) Lymph # (Auto) Simpson # (Auto) Eos # (Auto) Baso # (Auto) PT INR APTT D-Dimer ABG pH ABG pCO2 ABG pO2 ABG HCO3 ABG Total CO2 ABG O2 Saturation ABG Base Excess FiO2 Sodium Potassium Chloride Carbon Dioxide BUN Creatinine Estimated GFR BUN/Creatinine Ratio Glucose Lactate 2.2 H Calcium Magnesium Total Bilirubin AST ALT Alkaline Phosphatase Total Creatine Kinase CK-MB (CK-2) CK-MB (CK-2) Rel Index Troponin I NT-Pro-B Natriuret Pep Total Protein Albumin Globulin Albumin/Globulin Ratio Lipase Procalcitonin Urine Color Yellow Urine Appearance Clear Urine pH 6.0 Ur Specific [place] 1.025 Urine Protein 2+ H Urine Glucose (UA) Trace H Urine Ketones Negative Urine Occult Blood Negative Urine Nitrate Negative Urine Bilirubin Negative Urine Urobilinogen 0.2 Ur Leukocyte Esterase Negative Urine RBC None seen Urine WBC 0-1/hpf Ur Squamous Epith Cells 0-1 /hpf Urine Bacteria None seen Urine Mucus 1+ H Ur Culture Indicated? Cult not indicated SARS-CoV-2 (PCR) Negative 07/30/20 07/30/20 07/30/20 12:40 12:43 15:00 WBC RBC Hgb Hct MCV MCH MCHC RDW Plt Count Neut % (Auto) Lymph % (Auto) Simpson % (Auto) Eos % (Auto) Baso % (Auto) Neut # (Auto) Lymph # (Auto) Simpson # (Auto) Eos # (Auto) Baso # (Auto) PT INR APTT D-Dimer ABG pH 7.44 ABG pCO2 38.0 ABG pO2 113 H ABG HCO3 26 ABG Total CO2 27 ABG O2 Saturation 99 ABG Base Excess 1.0 FiO2 100 Sodium Potassium Chloride Carbon Dioxide BUN Creatinine Estimated GFR BUN/Creatinine Ratio Glucose Lactate 3.1 H Calcium Magnesium Total Bilirubin AST ALT Alkaline Phosphatase Total Creatine Kinase CK-MB (CK-2) CK-MB (CK-2) Rel Index Troponin I NT-Pro-B Natriuret Pep Total Protein Albumin Globulin Albumin/Globulin Ratio Lipase Procalcitonin Urine Color Urine Appearance Urine pH Ur Specific [place] Urine Protein Urine Glucose (UA) Urine Ketones Urine Occult Blood Urine Nitrate Urine Bilirubin Urine Urobilinogen Ur Leukocyte Esterase Urine RBC Urine WBC Ur Squamous Epith Cells Urine Bacteria Urine Mucus Ur Culture Indicated? SARS-CoV-2 (PCR) Negative Assessment & Plan Assessment & Plan narrative: This is a 74-year-old male with a past medical history of hypertension, hyperlipidemia, BPH, type 2 diabetes, tobacco use, cataracts who presented with worsening abdominal pain over the past day and was found to have intra-abdominal free air on CT imaging in the emergency room. He likely has developed sepsis from underlying intra-abdominal process, will be going emergently to the operating room then admitted to Medicine. 1. Sepsis secondary to intra-abdominal process, probable perforated gastric ulcer - SOFA score of 6 as he has begun to develop acute renal failure, acute respiratory failure which appears to be out of proportion to his CT imaging. -prior to recent abdominal pain issues he was quite functional and had no dyspnea on exertion. -continue antibiotics after surgery, given fluid boluses in the ER. Management will depend on surgical findings. - per surgery most likely etiology perforated gastric ulcer based on history and imaging. 2. Acute renal failure, likely secondary to ATN, present on admission. - last baseline value from 2015 was 1.2, Creatinine 2.22 up from 1.5 last week for ER visit. 3. Type 2 DM - check A1c, on outpatient oral therapy which will be held. Admit glucose 222. - continue medium dose sliding scale initially q6h given likely NPO status, if significantly elevated after surgery start with a small amount of long acting insulin (5 units) initially until known nutrition status. 4. HTN and HLD - continue home medications when able, hold now for sepsis. 5. BPH - arriaga placed in the ER, continue finasteride when able. 6. Tobacco use - patient stopped smoking per report 06/25. 7. Lung cavitary lesion and pleural fluid - worked up at [facility], recommended for repeat CT in 3-6 months per pulmonology. TB highly unlikely, most likely malignancy or bleb. 8. Acute respiratory failure with hypoxia, present on admission - suspect secondary to sepsis and underlying intra-abdominal process. - proBNP mildly elevated at 274, however prior to abdominal pain no symptoms of overt cardiac symptoms. Sepsis is more likely the etiology of his acute failure. - Consider TTE depending on respiratory status moving forward. Code: DNR but okay with intubation after surgery per discussion with patient. Surrogate decision maker is the patient's Son. Dispo: pending operative findings, ICU if remains intubated or inpatient status if extubated post operatively. DVT: SCD temporarily until more stable after OR. Scores SOFA PaO2/FIO2: < 220 mmHg Platelets: >= 150 Bilirubin: < 1.2 mg/dL Hypotension: MAP < 70 mmHg [place] Coma Scale: 15 Renal: Creatinine 2.0-3.4 mg/dL SOFA Score: 6 Quality MIPS - Admit I confirm the patient?s Advance Care Plan is present, Code status is documented, Surrogate decision maker is in patient?s record [If Yes, STOP here]: Yes
[2020-07-30] MEDS: BUPIVACAINE 0.5% W/ EPI (PF) 30 ML VIAL INJ ×2 (17:33→19:53)
[2020-07-30] MEDS: BUPIVACAINE LIPOSOME 266 MG/20 ML VIAL INJ (19:55)
--- NOTE | 2020-07-30 20:26 | PM.OP.1 ---
Operative Date/Time/Diagnoses Date of procedure: 07/30/20 Time of procedure: 20:26 Pre-op diagnosis: Perforated viscera Post-op diagnosis: other (Perforated duodenal ulcer, second part of duodenum posterior surface; gross spillage of GI contents throughout the abdomen) Procedure & Clinicians Procedure: Diagnostic laparoscopy and laparoscopic mobilization of hepatic flexure Open repair of perforated duodenal ulcer, second part of duodenum, posterior surface, using Joel patch technique Abdominal washout of gross spillage with 3L of warm saline Diagnostic EGD, with removal of retained food in stomach Twenty-two modifier should be included for increased level of risk and difficulty due to severity of patient disease Same procedure as scheduled: Yes Indications: Sepsis, free air on CT, intractable abdominal pain, suspected perforated viscera Surgeon: Flor Cueva Apprentice/Lineman: Domenico Wheeler Click Yes if Unassisted: No Anesthesia Type: General Operative Notes Findings: 2cm x 1cm perforation on posterior surface of duodenal C loop; solid food in the stomach; gross spillage of GI contents in stomach Specimen(s): other (omentum) Applied: catheter (arriaga catheter), drain(s) (Two 19 round german drains) and other (NG tube) Estimated Blood Loss (mL): 15 Blood products transfused: none Procedure in detail: The patient was brought into the operating room and placed supine on the OR table. Sequential compression devices were placed on both legs and turned on. Appropriate antibiotics were given prior to the start of surgery. General anesthesia was induced the patient was intubated. The abdomen was prepped and draped in sterile fashion. Surgical time-out was conducted. Local anesthetic was injected under the skin just superior to the umbilicus and a 5 mm vertical incision was made at this site. The umbilical stalk was grasped with a Baron and elevated. A Veress needle was passed through the fascia into proper position. The position was tested with a saline drop test which was appropriate for intra-abdominal Veress needle placement. The abdomen was then insufflated in the usual fashion. Once insufflated to 15 mm Hg the Veress needle was removed and a 5 mm optical trocar was placed under direct vision using a 5 mm 30 degree scope. Once the camera was inside the abdomen I took a look around. There was no injury from port placement. Two additional ports were placed in a similar fashion in left upper abdomen and right lower abdomen. On examination of the abdomen, copious bilious fluid was seen throughout the left and right upper quadrants, and the right gutter of the abdomen. The omentum was seen plastered down on top of the liver. The stomach was very distended. I asked Dr. Thakkar to place an NG tube to decompress the stomach. I began suctioning out the bilious fluid, and attempting to free the omentum from its attachments to the right anterior abdominal wall and right gutter area. Upon taking this down the right colon was seen. There are multiple areas of discoloration on the colon, consistent with bile staining. The colon itself appeared viable, and did not appear to be a source of perforation or spillage. The right colon and hepatic flexure were mobilized and rotated inferiorly and medially to reveal the duodenum. Once the colon was rotated, I was able to see that the bilious drainage was coming from deep and posterior to the C-loop of the duodenum. I was not able to reach this area safely with laparoscopic instruments. At this point the decision was made to convert to an open operation. A template was used to make a 25 cm incision in the vertical midline of the upper abdomen. Dissection was carried down to the fascia using cautery, to control any bleeders. The fascia was opened along the midline for the full length of the skin incision. The Bookwalter was placed, and the mid upper abdomen was exposed. Careful dissection was undertaken in order to rotate the C-loop of the duodenum anteriorly and medially in order to in view the entire perforation. After prolonged and tedious dissection, I was able to see the inferior, superior, and lateral borders of a fairly large perforation. He was about 2 cm x 1 cm involving most of the posterior wall of the duodenum as it curved around the head of the pancreas. I was not able to identify the entry point of the common bile duct into the duodenum. The area of the perforation appeared quite narrowed, and I was concerned that simply patching it would narrow it too much, and causing gastric outlet obstruction. A this point I called my partner Dr. Wheeler to come in, and to perform an upper endoscopy in order to help evaluate the duodenum from the inside. Dr. Wheeler came in and performed the EGD, and was able to pass the scope into the duodenum with my manual guidance from the abdomen. With this we were able to see that although the duodenum was significantly damaged by the perforation, it appeared that the injury was far enough away from the bile duct that we would be able to close it without causing biliary obstruction, and without causing a gastric outlet obstruction. The EGD scope was held in place by Dr. Wheeler as I closed the ulcer using 3-0 silk sutures, in an interrupted fashion. Once the injury was repaired, we then reinsufflated the duodenum, and there was 1 small area of air leak at the inferior border of the wound. I placed another stitch there, and there was no further air leak. As Dr. Wheeler pulled the EGD scope back into the stomach we noted that there was a significant amount of solid food debris in the stomach which was not likely to be able to pass either up through the NG tube or down through the edematous area of the newly repaired duodenum. Dr. Wheeler then put in a large bore OG tube in order to irrigate and suction out the solid debris from the stomach. I was able to manipulate the stomach manually from the abdomen while he suctioned out from above the solid food debris, largely clearing the stomach. He then put the EGD scope back down once again to ensure that there was no significant amount of solid food debris left in the stomach. We then took 1 more look at our repair from within the lumen of the duodenum, and it appeared intact, and not obstructed. Of note, there was no obvious mass, or neoplasm at the site. It's appearance is most consistent with a perforated peptic ulcer. At this point a large tongue of omentum was secured on top of the closure of the duodenal perforation, to make a Joel patch repair. The tongue of omentum was additionally sutured to itself, to prevent it from pulling back away from the duodenal injury. The abdomen was then washed out with 3 L of warm saline. There was copious bilious fluid throughout the abdomen. The drainage became clear as we continued to wash it out. We then placed two 19 round German drains, 1 going through the right lower quadrant 5 mm port, and 1 going through a new location in the abdominal wall in the left lower quadrant. The right-sided drain was positioned behind the hepatic flexure of the colon and along the infrahepatic space. This was secured to the skin with 3-0 nylon suture. The left-sided drain was looped through the pelvis and up the left gutter of the abdomen, and secured to the skin using 3-0 nylon suture. At this point the NG tube was replaced by Dr. Wheeler, and I was able to palpate it with my hand to make sure was in the proper position within the stomach. The midline fascia was then injected with additional local anesthetic for a total of 40 mL of 0.5% Marcaine with epi and 20 mL of Exparel for the entire case. The midline fascia was then closed with running 0 PDS suture and interrupted 0 Vicryl [id number] to close and reinforce the fascial closure. The skin was then closed with skin serafin in the midline incision and in the 1 remaining 5 mm port site in the left mid abdomen. The drain sites were dressed with 4x4s and secured with Medipore tape. The midline was dressed with 4x4s and secured with Medipore tape. The left mid abdomen port site was dressed with a Band-Aid. This concluded the procedure. At this point the needle sponge and instrument counts were correct. The patient was transferred to the ICU still intubated. The Arriaga catheter was left in place. In the ICU he was initially hypotensive, but his systolic blood pressure came up to the 110s without ongoing use of pressors. I contacted the patient's son, and updated him on his father's condition, per the patient's preop request. Complications: none Post-operative Condition: stable Disposition: ICU
[2020-07-30] MEDS: LACTATED RINGERS 1,000 ML 500 ML IV (20:45)
[2020-07-30] MEDS: propofoL 1,000 MG/100 ML VIAL 2.663 MG IV (21:26)
[2020-07-30] MEDS: LACTATED RINGERS 1,000 ML 1000 ML IV ×2 (21:39→22:29)
[2020-07-30] MEDS: PANTOPRAZOLE 40 MG VIAL IV (22:03)
[2020-07-30] MEDS: PIPERACILLIN/TAZO 3.375 GM in SODIUM CHLORIDE 0.9% 100 ML 25 ML IV (22:25)
--- NOTE | 2020-07-30 23:37 | PC.NURSE ---
Admissison Note: Pt admitted from OR at ~2030. Pt initially under influence of paralytics from OR. Propofol started at 5 mcg/kg/min. Pt then awakening to light touch, squeezing hands to command. Wiggling both toes to command. Pt with PERRLA. Pt arrives from OR on ventilator. Vent settings FiO2 60%, TV 400, RR 20 (breathing at 20); PEEP 5. Pt with SPO2 remaining 95%. Lungs clear but diminished. Pt arrives with hypotension, initially BP 80/50 with a MAP of 60. Pt briefly with SBP 54 while anesthesia was still at bedside. Anesthesia MD gave pt bolus of neosynephrine and fluid bolus initiated. Pt with palpable pedal pulses, feet warm to touch. Pt has received total of 2.5 L LR fluid bolus on this shift for hypotension. Pt arrives with NG to LIS. Small amount of brown output from NG tube noted. Pt's abdomen is soft. 2 JPs from surgical site draining serosang fluids. Midline abdominal incision with dressing CDI. Pt arrives from OR with indwelling catheter in place. Pt initially with low urine output in OR. After fluid boluses, pt with urine output 225 for 2 hours. Clear yellow urine. Hospitalist to bedside and communicating care plan throughout pt's admission. Will continue to monitor, notify MD with changes.
[2020-07-30] MEDS: NOREPINEPHRINE 4 MG in DEXTROSE 5% IN WATER 250 ML 30.48 ML IV (23:51)
[2020-07-30] MEDS: LACTATED RINGERS 1,000 ML 125 ML IV (23:52)
[2020-07-31] VITALS (52 sets, daily range): BP systolic 69–171; BP diastolic 41–72; PULSE 50–105; RESP 11–26; TEMP 36–36.6; O2SAT 92–100; BMI 26.5
[2020-07-31] MEDS: MIDAZOLAM 50 MG/10 ML VIAL IV (00:50)
[2020-07-31] MEDS: MIDAZOLAM 50 MG in DEXTROSE 5% IN WATER 250 ML 10 ML IV (00:50)
[2020-07-31] MEDS: NOREPINEPHRINE 4 MG in DEXTROSE 5% IN WATER 250 ML 19.05 ML IV (01:20)
[2020-07-31] MEDS: DEXTROSE 5% WATER 250 ML 21 ML IV (01:21)
--- NOTE | 2020-07-31 01:45 | PC.NURSE ---
Addendum entered by Kira Parham R.N. 07/31/20 05:47: 0545- Patient wakes easily Rass at -2. Periodic bronchospasm and frequent suctioning required for copious clear secretions. Sputum sent per order. Levophed remains at 5 allison/min, Versed is at 2mg/hr, LR at 80cc/hr. Good uop. Lungs are clear/dim to ascultation. Patient will nod yes/no. Soft wrist restraints for safety. Will monitor. Original Note: 0050- Patient in a sustained Bradycardia 45-50. Propofol at 10mic/kg/min and patient is not sedated enough. Discussion with CLARISSA Adrian about changing sedation. New order rec. and started. Levophed is at 5 allison/min. IVF decreased to 80cc/hr. Titrating Fi02 per protocol. Will monitor.
[2020-07-31] MEDS: metroNIDAZOLE 500 MG/100 ML PIGGYBACK 100 MG IV ×4 (02:51→20:38)
[2020-07-31] MEDS: fentaNYL 100 MCG/2 ML INJ 25 MCG IV ×5 (04:09→20:43)
[2020-07-31] MEDS: PIPERACILLIN/TAZO 3.375 GM in SODIUM CHLORIDE 0.9% 100 ML 25 ML IV ×3 (05:02→20:37)
[2020-07-31 05:59] LABS: Add Manual Diff / Slide Review NO; Basophils Absolute Auto 0 /uL (0-100); Eosinophils Absolute Auto 0 /uL (0-450); Hematocrit 37.1 % (41-53); Hemoglobin 11.9 g/dL (13.5-17.5); Lymphocytes Absolute Auto 400 /uL (1100-4500); Lymphocytes Percent Auto 2.4 % (25-40); Mean Corpuscular HGB Conc 32.1 % (30-36); Mean Corpuscular Hemoglobin 28.5 PG (26-34); Mean Corpuscular Volume 88.8 fL (80-100); Monocytes Absolute Auto 900 /uL (0-900); Monocytes Percent Auto 4.9 % (3-14); Neutrophils Absolute Auto 16100 /uL (1500-7000); Neutrophils Percent Auto 92.7 % (50-75); Platelet Count 309 X10^3/uL (150-400); Red Blood Cell Count 4.18 X10^6/uL (4.5-5.9); White Blood Cell Count 17.4 X10^3/uL (4.5-11.0)
[2020-07-31 06:09] LABS: Alanine Aminotransferase 38 IU/L (<50); Albumin 2.6 g/dL (3.5-5.0); Alkaline Phosphatase 74 U/L (38-126); Aspartate Aminotransferase 44 IU/L (17-59); BUN Creatinine Ratio 34.4 (6-22); Bilirubin Total 0.6 mg/dL (0.2-1.3); Bilirubin Unconjugated 0.5 mg/dL (0.0-1.1); Blood Urea Nitrogen 62 mg/dL (9-20); Calcium 8.3 mg/dL (8.4-10.2); Carbon Dioxide 24 mmol/L (22-32); Chloride 103 mmol/L (98-107); Estimated Glomerular Filt Rate 37.2 mL/min (>60); Globulin 2.7 g/dL (1.7-4.1); Glucose 190 mg/dL (80-110); HEMOLYSIS < 15 (0-50); Magnesium 1.6 mg/dL (1.6-2.3); Sodium 134 mmol/L (137-145); Total Protein 5.3 g/dL (6.3-8.2)
[2020-07-31 06:10] LABS: Potassium 5.1 mmol/L (3.4-5.1)
[2020-07-31 06:50] LABS: Hemoglobin A1C% w Est Avg Glu 6.2 % (4.0-6.0)
[2020-07-31 06:53] LABS: INR 1.4 (0.9-1.3); Prothrombin Time 16.3 SECONDS (10.1-12.7)
[2020-07-31 06:57] LABS: Lactate (Lactic Acid) 1.2 mmol/L (0.7-2.1)
[2020-07-31 07:14] LABS: Procalcitonin 7.22 ng/mL (<0.5)
[2020-07-31] MEDS: PANTOPRAZOLE 40 MG VIAL IV ×2 (08:05→20:37)
--- NOTE | 2020-07-31 08:51 | PM.PN.1 ---
Subjective Subjective Date Patient Seen: 07/31/20 Interval history: Patient is 74-year-old male status post laparotomy on 07/30 for perforated duodenal ulcer. He is seen in ICU. He remained intubated overnight. He has received aggressive volume resuscitation, about 9 L total IV fluids, with 320 cc urine output overnight. He remains septic with BP this a.m. 107/55 on 5 mcg/kg/min Levophed. He is on Versed drip and fentanyl as needed. Pulmonary status appears stable with current vent settings at 40% FiO2, peep of 5. He is on Zosyn for antibiosis. Exam Vital Signs (past 8 hours): - 07/31/20 01:00 07/31/20 01:01 07/31/20 01:10 Temperature Pulse Rate 59 L 59 L 62 Respiratory Rate 20 20 20 Blood Pressure 96/51 L 100/55 L Pulse Oximetry 07/31/20 01:15 07/31/20 01:20 07/31/20 01:30 Temperature Pulse Rate 61 63 62 Respiratory Rate 18 16 20 Blood Pressure 100/51 L 94/53 L Pulse Oximetry 93 07/31/20 01:40 07/31/20 01:45 07/31/20 01:50 Temperature Pulse Rate 60 60 57 L Respiratory Rate 20 20 16 Blood Pressure 91/52 L 97/55 L Pulse Oximetry 94 94 95 07/31/20 03:00 07/31/20 06:50 07/31/20 07:00 Temperature 96.8 F L 97.0 F L Pulse Rate 88 72 Respiratory Rate 20 20 Blood Pressure 131/63 Pulse Oximetry 95 94 07/31/20 07:01 07/31/20 07:50 07/31/20 08:00 Temperature Pulse Rate 68 70 84 Respiratory Rate 20 20 18 Blood Pressure 85/51 L 92/50 L 106/55 L Pulse Oximetry 94 95 94 Oxygen Delivery Method Mechanical Ventilation Oxygen Flow Rate 12 Narrative Exam Narrative: General: Well-developed well-nourished male sedated on vent HEENT: Pupils equal, reactive, ET to in position Lungs: Clear but diminished bilaterally Heart: Regular rhythm Abdomen: 2 drains noted, surgical dressing clean and dry Extremities: Warm, dry without edema Neurological: No localizing findings Objective Labs Result Diagrams: 07/31/20 04:50 07/31/20 04:50 Labs: Laboratory Results - last 24 hr 07/30/20 07/30/20 07/30/20 12:14 12:14 12:14 WBC 20.0 H RBC 4.78 Hgb 13.8 Hct 42.6 MCV 89.1 MCH 28.9 MCHC 32.4 RDW 16.0 H Plt Count 369 Neut % (Auto) 90.2 H Lymph % (Auto) 2.3 L [place] % (Auto) 7.3 Eos % (Auto) 0.0 L Baso % (Auto) 0.2 Neut # (Auto) 27888 H Lymph # (Auto) 500 L [place] # (Auto) 1500 H Eos # (Auto) 0 Baso # (Auto) 0 PT 12.2 INR 1.1 APTT 44 H D-Dimer 620 H ABG pH ABG pCO2 ABG pO2 ABG HCO3 ABG Total CO2 ABG O2 Saturation ABG Base Excess FiO2 Sodium 134 L Potassium 4.9 Chloride 95 L Carbon Dioxide 28 BUN 73 H Creatinine 2.22 H Estimated GFR 29.2 L BUN/Creatinine Ratio 32.9 H Glucose 222 H Hemoglobin A1c Lactate Calcium 10.2 Magnesium 1.8 Total Bilirubin 0.8 Conjugated Bilirubin Unconjugated Bilirubin AST 22 ALT 19 Alkaline Phosphatase 131 H Total Creatine Kinase 27 L CK-MB (CK-2) TNP CK-MB (CK-2) Rel Index TNP Troponin I 0.017 NT-Pro-B Natriuret Pep 274 H Total Protein 7.3 Albumin 4.0 Globulin 3.3 Albumin/Globulin Ratio 1.2 Lipase 183 Procalcitonin 1.32 H Urine Color Urine Appearance Urine pH Ur Specific Blair Urine Protein Urine Glucose (UA) Urine Ketones Urine Occult Blood Urine Nitrate Urine Bilirubin Urine Urobilinogen Ur Leukocyte Esterase Urine RBC Urine WBC Ur Squamous Epith Cells Urine Bacteria Urine Mucus Ur Culture Indicated? Nasal Screen MRSA (PCR) SARS-CoV-2 (PCR) 07/30/20 07/30/20 07/30/20 12:15 12:37 12:40 WBC RBC Hgb Hct MCV MCH MCHC RDW Plt Count Neut % (Auto) Lymph % (Auto) [place] % (Auto) Eos % (Auto) Baso % (Auto) Neut # (Auto) Lymph # (Auto) [place] # (Auto) Eos # (Auto) Baso # (Auto) PT INR APTT D-Dimer ABG pH ABG pCO2 ABG pO2 ABG HCO3 ABG Total CO2 ABG O2 Saturation ABG Base Excess FiO2 Sodium Potassium Chloride Carbon Dioxide BUN Creatinine Estimated GFR BUN/Creatinine Ratio Glucose Hemoglobin A1c Lactate 2.2 H Calcium Magnesium Total Bilirubin Conjugated Bilirubin Unconjugated Bilirubin AST ALT Alkaline Phosphatase Total Creatine Kinase CK-MB (CK-2) CK-MB (CK-2) Rel Index Troponin I NT-Pro-B Natriuret Pep Total Protein Albumin Globulin Albumin/Globulin Ratio Lipase Procalcitonin Urine Color Yellow Urine Appearance Clear Urine pH 6.0 Ur Specific Blair 1.025 Urine Protein 2+ H Urine Glucose (UA) Trace H Urine Ketones Negative Urine Occult Blood Negative Urine Nitrate Negative Urine Bilirubin Negative Urine Urobilinogen 0.2 Ur Leukocyte Esterase Negative Urine RBC None seen Urine WBC 0-1/hpf Ur Squamous Epith Cells 0-1 /hpf Urine Bacteria None seen Urine Mucus 1+ H Ur Culture Indicated? Cult not indicated Nasal Screen MRSA (PCR) SARS-CoV-2 (PCR) Negative 07/30/20 07/30/20 07/30/20 12:40 12:43 15:00 WBC RBC Hgb Hct MCV MCH MCHC RDW Plt Count Neut % (Auto) Lymph % (Auto) [place] % (Auto) Eos % (Auto) Baso % (Auto) Neut # (Auto) Lymph # (Auto) [place] # (Auto) Eos # (Auto) Baso # (Auto) PT INR APTT D-Dimer ABG pH 7.44 ABG pCO2 38.0 ABG pO2 113 H ABG HCO3 26 ABG Total CO2 27 ABG O2 Saturation 99 ABG Base Excess 1.0 FiO2 100 Sodium Potassium Chloride Carbon Dioxide BUN Creatinine Estimated GFR BUN/Creatinine Ratio Glucose Hemoglobin A1c Lactate 3.1 H Calcium Magnesium Total Bilirubin Conjugated Bilirubin Unconjugated Bilirubin AST ALT Alkaline Phosphatase Total Creatine Kinase CK-MB (CK-2) CK-MB (CK-2) Rel Index Troponin I NT-Pro-B Natriuret Pep Total Protein Albumin Globulin Albumin/Globulin Ratio Lipase Procalcitonin Urine Color Urine Appearance Urine pH Ur Specific Blair Urine Protein Urine Glucose (UA) Urine Ketones Urine Occult Blood Urine Nitrate Urine Bilirubin Urine Urobilinogen Ur Leukocyte Esterase Urine RBC Urine WBC Ur Squamous Epith Cells Urine Bacteria Urine Mucus Ur Culture Indicated? Nasal Screen MRSA (PCR) SARS-CoV-2 (PCR) Negative 07/31/20 07/31/20 07/31/20 04:50 04:50 04:50 WBC 17.4 H RBC 4.18 L Hgb 11.9 L Hct 37.1 L MCV 88.8 MCH 28.5 MCHC 32.1 RDW 16.0 H Plt Count 309 Neut % (Auto) 92.7 H Lymph % (Auto) 2.4 L [place] % (Auto) 4.9 Eos % (Auto) 0.0 L Baso % (Auto) 0.0 Neut # (Auto) 12107 H Lymph # (Auto) 400 L [place] # (Auto) 900 Eos # (Auto) 0 Baso # (Auto) 0 PT INR APTT D-Dimer ABG pH ABG pCO2 ABG pO2 ABG HCO3 ABG Total CO2 ABG O2 Saturation ABG Base Excess FiO2 Sodium 134 L Potassium 5.1 Chloride 103 Carbon Dioxide 24 BUN 62 H Creatinine 1.80 H Estimated GFR 37.2 L BUN/Creatinine Ratio 34.4 H Glucose 190 H Hemoglobin A1c 6.2 H Lactate Calcium 8.3 L Magnesium 1.6 Total Bilirubin 0.6 Conjugated Bilirubin 0.0 Unconjugated Bilirubin 0.5 AST 44 ALT 38 Alkaline Phosphatase 74 D Total Creatine Kinase CK-MB (CK-2) CK-MB (CK-2) Rel Index Troponin I NT-Pro-B Natriuret Pep Total Protein 5.3 L Albumin 2.6 L Globulin 2.7 Albumin/Globulin Ratio 1.0 Lipase Procalcitonin Urine Color Urine Appearance Urine pH Ur Specific [place] Urine Protein Urine Glucose (UA) Urine Ketones Urine Occult Blood Urine Nitrate Urine Bilirubin Urine Urobilinogen Ur Leukocyte Esterase Urine RBC Urine WBC Ur Squamous Epith Cells Urine Bacteria Urine Mucus Ur Culture Indicated? Nasal Screen MRSA (PCR) SARS-CoV-2 (PCR) 07/31/20 07/31/20 07/31/20 05:36 06:33 06:33 WBC RBC Hgb Hct MCV MCH MCHC RDW Plt Count Neut % (Auto) Lymph % (Auto) [place] % (Auto) Eos % (Auto) Baso % (Auto) Neut # (Auto) Lymph # (Auto) [place] # (Auto) Eos # (Auto) Baso # (Auto) PT 16.3 H INR 1.4 H APTT D-Dimer ABG pH ABG pCO2 ABG pO2 ABG HCO3 ABG Total CO2 ABG O2 Saturation ABG Base Excess FiO2 Sodium Potassium Chloride Carbon Dioxide BUN Creatinine Estimated GFR BUN/Creatinine Ratio Glucose Hemoglobin A1c Lactate 1.2 Calcium Magnesium Total Bilirubin Conjugated Bilirubin Unconjugated Bilirubin AST ALT Alkaline Phosphatase Total Creatine Kinase CK-MB (CK-2) CK-MB (CK-2) Rel Index Troponin I NT-Pro-B Natriuret Pep Total Protein Albumin Globulin Albumin/Globulin Ratio Lipase Procalcitonin Urine Color Urine Appearance Urine pH Ur Specific [place] Urine Protein Urine Glucose (UA) Urine Ketones Urine Occult Blood Urine Nitrate Urine Bilirubin Urine Urobilinogen Ur Leukocyte Esterase Urine RBC Urine WBC Ur Squamous Epith Cells Urine Bacteria Urine Mucus Ur Culture Indicated? Nasal Screen MRSA (PCR) Negative for mrsa SARS-CoV-2 (PCR) 07/31/20 06:33 WBC RBC Hgb Hct MCV MCH MCHC RDW Plt Count Neut % (Auto) Lymph % (Auto) [place] % (Auto) Eos % (Auto) Baso % (Auto) Neut # (Auto) Lymph # (Auto) [place] # (Auto) Eos # (Auto) Baso # (Auto) PT INR APTT D-Dimer ABG pH ABG pCO2 ABG pO2 ABG HCO3 ABG Total CO2 ABG O2 Saturation ABG Base Excess FiO2 Sodium Potassium Chloride Carbon Dioxide BUN Creatinine Estimated GFR BUN/Creatinine Ratio Glucose Hemoglobin A1c Lactate Calcium Magnesium Total Bilirubin Conjugated Bilirubin Unconjugated Bilirubin AST ALT Alkaline Phosphatase Total Creatine Kinase CK-MB (CK-2) CK-MB (CK-2) Rel Index Troponin I NT-Pro-B Natriuret Pep Total Protein Albumin Globulin Albumin/Globulin Ratio Lipase Procalcitonin 7.22 H Urine Color Urine Appearance Urine pH Ur Specific [place] Urine Protein Urine Glucose (UA) Urine Ketones Urine Occult Blood Urine Nitrate Urine Bilirubin Urine Urobilinogen Ur Leukocyte Esterase Urine RBC Urine WBC Ur Squamous Epith Cells Urine Bacteria Urine Mucus Ur Culture Indicated? Nasal Screen MRSA (PCR) SARS-CoV-2 (PCR) PFSH Medical History BPH (benign prostatic hyperplasia) Chronic kidney disease DM2 (diabetes mellitus, type 2) HTN (hypertension) Smoker Social History household members: children Smoking Status: Current every day smoker Assessment & Plan Assessment & Plan narrative: 1. Perforated duodenal ulcer, present on admission, active -status post laparotomy on 07/30 -continue fentanyl as needed postop pain -H&H is stable 2. Sepsis, present on admission, active -secondary to intra-abdominal infection from perforated ulcer -continue Zosyn -continue NS 125 cc/hour, appears adequately volume resuscitated -wean off pressor support as tolerated 3. Acute respiratory failure with hypoxia, present on admission, active -secondary to sepsis -stop sedation and attempt extubation if possible 4. Acute kidney injury, likely secondary to ATN, present on admission -improving, current 1.8, baseline creatinine 1.5, was 2.22 on admit -continue fluids and sepsis treatment 5. Type 2 diabetes -at baseline well controlled, A1c 6.2 -continue subcu NovoLog as needed, keep glucose 140-180 range -holding p.o. meds while patient NPO 6. Lung cavitary lesion and pleural fluid - worked up at [facility], recommended for repeat CT in 3-6 months per pulmonology. TB highly unlikely, most likely malignancy or bleb. 7. BPH - arriaga placed in the ER, continue finasteride when able. 8. Cigarette dependency -patient recently stop smoking Code: DNR but okay with intubation after surgery per discussion with patient. Surrogate decision maker is the patient's Son. DVT prophylaxis: SCDs, INR is 1.4 without anticoagulation Total critical care management of up to 60 minutes during course of today's evaluation.
[2020-07-31] MEDS: LACTATED RINGERS 1,000 ML 125 ML IV ×2 (09:59→19:07)
--- NOTE | 2020-07-31 11:22 | CM.DANOTE ---
Addendum entered by Mariela Guardado R.N. 07/31/20 13:05: Just found out that patient came from [facility]. Son had not mentioned this. July had called and inquired upon patient. Updated his assessment. Patient was admitted to [facility] from [facility]. This was approximately 5-26, he had been at [facility] previously due to lesion to his lung. Patient is a two person maximum assist at the facility. As stated in prior note, Ted Rockwell. is primary contact. Did mention to Nicole at [facility], per conversation with son, that they may eventually have patient move in with them. Prior to admission to [facility], he was living alone as stated below. Nicole at [facility] stated that they can accept patient back, but they will need to get a new authorization from [place]. Will continue to keep her updated. Original Note: DCP: Case received, EMR reviewed. Checked on patient, had just been extubated, but sleeping. Was able to contact son, Ted Perez Jr. He was in route to see patient. Son here, introduced self and role. Was able to obtain some information from son regarding patient's baseline activity level prior to hospitalization, as well as his current living situation. DCP assessment completed with information currently available. Patient is a 74 year old male who admitted yesterday afternoon to the care of the hospitalist team. PCP: Unable to obtain, son is not aware of who his provider is. Payer: confirmed: [facility]. Patient came to the hospital via ambulance secondary to abdominal pain, as well as him not having BM for several days. Patient was diagnosed with perforated gastric ulcer, as well as pleural effusion. Patient is DNR/DNI. He was ok to be intubated for surgery. He had procedure yesterday, laparoscopic, for duodenal repair of his ulcer. He was just extubated this morning, but is currently sleeping on oxygen. Met with patient's son, Ted Perez Jr, who is at bedside. Confirmed that Sola Perez is his (patient's [id number]). Patient resides alone here in [place]. Son and live in [place]. Asked son how patient has been doing at home prior to hospitalization, and son stated, not well. He is no longer driving, uses a walker, and needs assistance with showers, meals, etc. Asked son if patient has had home health, and he stated, he was not sure. Son also not sure who his primary care provider is. Asked son if he was POA, and indicated, don't think so, but that's something we are looking into. Mentioned briefly about discharge planning. Stated, we may just have to have him move in with us. Mentioned rehab briefly, but son stated, this is something that will have to be discussed with my dad when he is more awake. Son indicated that his father is normally alert and oriented. P: DCP to continue to follow closely and will be available for any resources needed. Mariela Guardado RN/[employer]
--- NOTE | 2020-07-31 11:47 | P.PN_ITS ---
Subjective Subjective Date Patient Seen: 07/31/20 Time Patient Seen: 09:15 Interval history: Purposeful movements. Pt was put on Levophed during the night. Currently going through weaning parameters from the vent. Exam Vital Signs (past 8 hours): - 07/31/20 06:50 07/31/20 07:00 07/31/20 07:01 Temperature 97.0 F L Pulse Rate 88 72 68 Respiratory Rate 20 20 20 Blood Pressure 131/63 85/51 L Pulse Oximetry 95 94 94 07/31/20 07:50 07/31/20 08:00 07/31/20 08:50 Temperature Pulse Rate 70 84 74 Respiratory Rate 20 18 12 Blood Pressure 92/50 L 106/55 L Pulse Oximetry 95 94 95 07/31/20 09:00 07/31/20 09:40 07/31/20 09:50 Temperature Pulse Rate 86 71 Respiratory Rate 19 14 Blood Pressure 115/61 Pulse Oximetry 94 96 94 07/31/20 10:00 07/31/20 10:45 07/31/20 10:47 Temperature Pulse Rate 72 96 H 98 H Respiratory Rate 13 23 14 Blood Pressure 109/56 L Pulse Oximetry 95 94 97 07/31/20 11:00 Temperature Pulse Rate 102 H Respiratory Rate 24 Blood Pressure 115/56 L Pulse Oximetry 94 Fraction of Inspired Oxygen 0.50 Oxygen Delivery Method Venturi Mask Oxygen Flow Rate 15 Narrative Exam Narrative: GENERAL: Sedated and intubated. Appears stated age. Making some purposeful movements, but not following commands. CARDIOVASCULAR: Tachycardic in the 90s to low 100, regular rhythm. No pedal edema. RESPIRATORY: Intubated, on CPAP, breathing spontaneously, coarse breath sounds GASTROINTESTINAL: Abdomen soft, nondistended, dressings intact and clean, right MATHEW drain is serous with a bile tinge, left side drain is serosanguineous MUSCULOSKELETAL: Equal tone and mass bilaterally. SKIN: Warm, dry, soft, appropriate color for ethnicity. No other lesions, rashes, or wounds. Objective Labs Result Diagrams: 07/31/20 04:50 07/31/20 04:50 Labs: Laboratory Results - last 24 hr 07/30/20 07/30/20 07/30/20 12:14 12:14 12:14 WBC 20.0 H RBC 4.78 Hgb 13.8 Hct 42.6 MCV 89.1 MCH 28.9 MCHC 32.4 RDW 16.0 H Plt Count 369 Neut % (Auto) 90.2 H Lymph % (Auto) 2.3 L [place] % (Auto) 7.3 Eos % (Auto) 0.0 L Baso % (Auto) 0.2 Neut # (Auto) 87747 H Lymph # (Auto) 500 L [place] # (Auto) 1500 H Eos # (Auto) 0 Baso # (Auto) 0 PT 12.2 INR 1.1 APTT 44 H D-Dimer 620 H ABG pH ABG pCO2 ABG pO2 ABG HCO3 ABG Total CO2 ABG O2 Saturation ABG Base Excess FiO2 Sodium 134 L Potassium 4.9 Chloride 95 L Carbon Dioxide 28 BUN 73 H Creatinine 2.22 H Estimated GFR 29.2 L BUN/Creatinine Ratio 32.9 H Glucose 222 H Hemoglobin A1c Lactate Calcium 10.2 Magnesium 1.8 Total Bilirubin 0.8 Conjugated Bilirubin Unconjugated Bilirubin AST 22 ALT 19 Alkaline Phosphatase 131 H Total Creatine Kinase 27 L CK-MB (CK-2) TNP CK-MB (CK-2) Rel Index TNP Troponin I 0.017 NT-Pro-B Natriuret Pep 274 H Total Protein 7.3 Albumin 4.0 Globulin 3.3 Albumin/Globulin Ratio 1.2 Lipase 183 Procalcitonin 1.32 H Urine Color Urine Appearance Urine pH Ur Specific [place] Urine Protein Urine Glucose (UA) Urine Ketones Urine Occult Blood Urine Nitrate Urine Bilirubin Urine Urobilinogen Ur Leukocyte Esterase Urine RBC Urine WBC Ur Squamous Epith Cells Urine Bacteria Urine Mucus Ur Culture Indicated? Nasal Screen MRSA (PCR) SARS-CoV-2 (PCR) 07/30/20 07/30/20 07/30/20 12:15 12:37 12:40 WBC RBC Hgb Hct MCV MCH MCHC RDW Plt Count Neut % (Auto) Lymph % (Auto) [place] % (Auto) Eos % (Auto) Baso % (Auto) Neut # (Auto) Lymph # (Auto) [place] # (Auto) Eos # (Auto) Baso # (Auto) PT INR APTT D-Dimer ABG pH ABG pCO2 ABG pO2 ABG HCO3 ABG Total CO2 ABG O2 Saturation ABG Base Excess FiO2 Sodium Potassium Chloride Carbon Dioxide BUN Creatinine Estimated GFR BUN/Creatinine Ratio Glucose Hemoglobin A1c Lactate 2.2 H Calcium Magnesium Total Bilirubin Conjugated Bilirubin Unconjugated Bilirubin AST ALT Alkaline Phosphatase Total Creatine Kinase CK-MB (CK-2) CK-MB (CK-2) Rel Index Troponin I NT-Pro-B Natriuret Pep Total Protein Albumin Globulin Albumin/Globulin Ratio Lipase Procalcitonin Urine Color Yellow Urine Appearance Clear Urine pH 6.0 Ur Specific [place] 1.025 Urine Protein 2+ H Urine Glucose (UA) Trace H Urine Ketones Negative Urine Occult Blood Negative Urine Nitrate Negative Urine Bilirubin Negative Urine Urobilinogen 0.2 Ur Leukocyte Esterase Negative Urine RBC None seen Urine WBC 0-1/hpf Ur Squamous Epith Cells 0-1 /hpf Urine Bacteria None seen Urine Mucus 1+ H Ur Culture Indicated? Cult not indicated Nasal Screen MRSA (PCR) SARS-CoV-2 (PCR) Negative 07/30/20 07/30/20 07/30/20 12:40 12:43 15:00 WBC RBC Hgb Hct MCV MCH MCHC RDW Plt Count Neut % (Auto) Lymph % (Auto) [place] % (Auto) Eos % (Auto) Baso % (Auto) Neut # (Auto) Lymph # (Auto) [place] # (Auto) Eos # (Auto) Baso # (Auto) PT INR APTT D-Dimer ABG pH 7.44 ABG pCO2 38.0 ABG pO2 113 H ABG HCO3 26 ABG Total CO2 27 ABG O2 Saturation 99 ABG Base Excess 1.0 FiO2 100 Sodium Potassium Chloride Carbon Dioxide BUN Creatinine Estimated GFR BUN/Creatinine Ratio Glucose Hemoglobin A1c Lactate 3.1 H Calcium Magnesium Total Bilirubin Conjugated Bilirubin Unconjugated Bilirubin AST ALT Alkaline Phosphatase Total Creatine Kinase CK-MB (CK-2) CK-MB (CK-2) Rel Index Troponin I NT-Pro-B Natriuret Pep Total Protein Albumin Globulin Albumin/Globulin Ratio Lipase Procalcitonin Urine Color Urine Appearance Urine pH Ur Specific [place] Urine Protein Urine Glucose (UA) Urine Ketones Urine Occult Blood Urine Nitrate Urine Bilirubin Urine Urobilinogen Ur Leukocyte Esterase Urine RBC Urine WBC Ur Squamous Epith Cells Urine Bacteria Urine Mucus Ur Culture Indicated? Nasal Screen MRSA (PCR) SARS-CoV-2 (PCR) Negative 07/31/20 07/31/20 07/31/20 04:50 04:50 04:50 WBC 17.4 H RBC 4.18 L Hgb 11.9 L Hct 37.1 L MCV 88.8 MCH 28.5 MCHC 32.1 RDW 16.0 H Plt Count 309 Neut % (Auto) 92.7 H Lymph % (Auto) 2.4 L [place] % (Auto) 4.9 Eos % (Auto) 0.0 L Baso % (Auto) 0.0 Neut # (Auto) 24507 H Lymph # (Auto) 400 L [place] # (Auto) 900 Eos # (Auto) 0 Baso # (Auto) 0 PT INR APTT D-Dimer ABG pH ABG pCO2 ABG pO2 ABG HCO3 ABG Total CO2 ABG O2 Saturation ABG Base Excess FiO2 Sodium 134 L Potassium 5.1 Chloride 103 Carbon Dioxide 24 BUN 62 H Creatinine 1.80 H Estimated GFR 37.2 L BUN/Creatinine Ratio 34.4 H Glucose 190 H Hemoglobin A1c 6.2 H Lactate Calcium 8.3 L Magnesium 1.6 Total Bilirubin 0.6 Conjugated Bilirubin 0.0 Unconjugated Bilirubin 0.5 AST 44 ALT 38 Alkaline Phosphatase 74 D Total Creatine Kinase CK-MB (CK-2) CK-MB (CK-2) Rel Index Troponin I NT-Pro-B Natriuret Pep Total Protein 5.3 L Albumin 2.6 L Globulin 2.7 Albumin/Globulin Ratio 1.0 Lipase Procalcitonin Urine Color Urine Appearance Urine pH Ur Specific [place] Urine Protein Urine Glucose (UA) Urine Ketones Urine Occult Blood Urine Nitrate Urine Bilirubin Urine Urobilinogen Ur Leukocyte Esterase Urine RBC Urine WBC Ur Squamous Epith Cells Urine Bacteria Urine Mucus Ur Culture Indicated? Nasal Screen MRSA (PCR) SARS-CoV-2 (PCR) 07/31/20 07/31/20 07/31/20 05:36 06:33 06:33 WBC RBC Hgb Hct MCV MCH MCHC RDW Plt Count Neut % (Auto) Lymph % (Auto) [place] % (Auto) Eos % (Auto) Baso % (Auto) Neut # (Auto) Lymph # (Auto) [place] # (Auto) Eos # (Auto) Baso # (Auto) PT 16.3 H INR 1.4 H APTT D-Dimer ABG pH ABG pCO2 ABG pO2 ABG HCO3 ABG Total CO2 ABG O2 Saturation ABG Base Excess FiO2 Sodium Potassium Chloride Carbon Dioxide BUN Creatinine Estimated GFR BUN/Creatinine Ratio Glucose Hemoglobin A1c Lactate 1.2 Calcium Magnesium Total Bilirubin Conjugated Bilirubin Unconjugated Bilirubin AST ALT Alkaline Phosphatase Total Creatine Kinase CK-MB (CK-2) CK-MB (CK-2) Rel Index Troponin I NT-Pro-B Natriuret Pep Total Protein Albumin Globulin Albumin/Globulin Ratio Lipase Procalcitonin Urine Color Urine Appearance Urine pH Ur Specific [place] Urine Protein Urine Glucose (UA) Urine Ketones Urine Occult Blood Urine Nitrate Urine Bilirubin Urine Urobilinogen Ur Leukocyte Esterase Urine RBC Urine WBC Ur Squamous Epith Cells Urine Bacteria Urine Mucus Ur Culture Indicated? Nasal Screen MRSA (PCR) Negative for mrsa SARS-CoV-2 (PCR) 07/31/20 06:33 WBC RBC Hgb Hct MCV MCH MCHC RDW Plt Count Neut % (Auto) Lymph % (Auto) [place] % (Auto) Eos % (Auto) Baso % (Auto) Neut # (Auto) Lymph # (Auto) [place] # (Auto) Eos # (Auto) Baso # (Auto) PT INR APTT D-Dimer ABG pH ABG pCO2 ABG pO2 ABG HCO3 ABG Total CO2 ABG O2 Saturation ABG Base Excess FiO2 Sodium Potassium Chloride Carbon Dioxide BUN Creatinine Estimated GFR BUN/Creatinine Ratio Glucose Hemoglobin A1c Lactate Calcium Magnesium Total Bilirubin Conjugated Bilirubin Unconjugated Bilirubin AST ALT Alkaline Phosphatase Total Creatine Kinase CK-MB (CK-2) CK-MB (CK-2) Rel Index Troponin I NT-Pro-B Natriuret Pep Total Protein Albumin Globulin Albumin/Globulin Ratio Lipase Procalcitonin 7.22 H Urine Color Urine Appearance Urine pH Ur Specific [place] Urine Protein Urine Glucose (UA) Urine Ketones Urine Occult Blood Urine Nitrate Urine Bilirubin Urine Urobilinogen Ur Leukocyte Esterase Urine RBC Urine WBC Ur Squamous Epith Cells Urine Bacteria Urine Mucus Ur Culture Indicated? 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 This was quite difficult location for perforation, and the repair required 2 surgeons. Today, he is still hemodynamically unstable and requiring some pressors. His procalcitonin went from 1-7, which is not unexpected given the amount of soilage of his abdomen in the prolonged and difficult operation he went through. He has some bile tinge to his right sided drain. Given the amount of bile staining in his abdomen, this may just be drainage of the local effluent, or it may be a leak from his repair. At this point, it would be best to go ahead and work on weaning parameters, extubation, and follow his hemodynamic parameters, drain output, and labs. We will plan on potentially do a Gastrografin study through the NG tube tomorrow, to evaluate for a leak, and to evaluate for narrowing of the duodenum. Recommendations: Wean and extubate as appropriate per hospitalist Wean off pressors as tolerated Continue antibiotics Keep NG tube in place to low intermittent suction Keep MATHEW drains emptied, record output, and reach charge Protect NG tube from inadvertent removal by patient or staff Would keep Molina in place for now DVT prophylaxis with SCDs COVID-19 COVID-19 status: Negative Result date/Date tested (Pos, Neg/Pending): 07/30/20 Time Spent With Patient Time with patient: 25 - 35 minutes Quality VTE Deep Vein Thrombosis/Pulmonary Embolism Present on Admission: No
[2020-07-31] MEDS: INSULIN LISPRO 100 UNIT/ML 3ML VIAL SUBCUT (12:19)
--- NOTE | 2020-07-31 12:55 | DIET.PN ---
Dietary Progress Note RD Note: RD consulted for pt NPO on vent status. Pt was successfully extubated today. Pt had emergency surgery for perforated duodenal ulcer yesterday. Following for surgery/hospitalist direction on when pt safe for PO intake vs TPN. Please reconsult RD for TPN reccs if pt requires greater than 3d NPO.
--- NOTE | 2020-07-31 14:45 | PC.NURSE ---
Day Shift Note Pt sedated to RASS of -2 this AM on versed 2 mg/hr for sedation and fentanyl IV pushes for pain control. Able to follow commands, drowsy. Ventilator settings at FiO2 of 40%, PEEP 5, RR 20, and TV 400 with SpO2 95-97%. SR with PACs. On levophed gtt 5 mcg/min to support SBP greater than 80 or MAP greater than 65. Restraints in place to bilateral wrists. Sedation vacation started at 0820, pt spontaneously opening eyes. CPAP trial started by RT at 0843. Pt did well during trial, maintaining SpO2 at 95%, RR in the 14-20 bpm range, breathing unlabored, and pulling good volumes. Reviewed with Dr. Avery and order received to extubate. Extubated to NC at 1025, did require venturi mask at 50%/15L to keep sats of 92-95%. Restraints removed at 1025. RR in the low 20s. Able to cough with verbal cueing, requiring intermittent oral suctioning. Levophed titrated to off at 1145 and MAP has remained in the 70s. Molina catheter in place and draining clear yellow urine. MATHEW drain to left producing serosanguinous fluid, MATHEW to right producing wright/cloudy output. Dr. Cueva aware of right MATHEW color and output volume. Midline incision dressing C/D/I. NG tube to LIS, brown/yellow fluid resulting. Pt verbally denies pain this afternoon and declines pain medication multiple times. Resting comfortably and turning every 2 hours. Son, Ted, at bedside this morning and was updated by Dr. Avery. Call light within reach. Bed alarm on. PICC to be placed this afternoon.
--- NOTE | 2020-07-31 16:13 | DI.RAD.S_ITS ---
PROCEDURE: XR CHEST 1V INDICATIONS: PICC placement TECHNIQUE: One view of the chest was acquired. COMPARISON: [facility], CR, XR CHEST 1V, 07/30/2020, 12:25. FINDINGS: Surgical changes and devices: Left arm PICC line, tip of which projects to the distal left brachiocephalic vein. Lungs and pleura: Left basilar atelectasis. Possible superimposed pleural effusion. Mediastinum: Mediastinal contours appear normal. Heart size is normal. Bones and chest wall: No suspicious bony lesions. Overlying soft tissues appear unremarkable. IMPRESSION: Tip of left arm PICC line projects to distal left brachiocephalic vein. Dictated by: Rd Acuña M.D. on 07/31/2020 at 17:03 Approved by: Rd Acuña M.D. on 07/31/2020 at 17:04
--- NOTE | 2020-07-31 23:12 | PC.NURSE ---
Patient alert and oriented to self and situation, occasionally forgetful, drowsy but able to answer basic questions and follow directions. PICC line placed by line RN for expected start of TPN tomorrow. Maintenance fluids of LR @ 125. Patient on venturi mask, was able to be weaned down to 12L, 40% FiO2 and maintaining SpO2 >94%. Patient has weak cough and needs to be prompted to clear secretions but lung sounds are clear/diminished. BP has been steady with MAP in 70's, HR variable from 90's-120's, mostly around low 100's. UO adequate. Surgical dressings C/D/I. L MATHEW drain had <100ml output serosanguinous, R MATHEW drain >100ml of narvaez/brown cloudy output, Dr. Cueva is aware- possible gastrographen study tomorrow to determine if there is a bile leak. NG at LIS, output >100. Molina UO 400ml, dark yellow. PRN fentanyl given 2x for abdominal pain related to incisions and back pain related to positioning, patient able to report pain when asked. Turns Q2H.
[2020-08-01] VITALS (21 sets, daily range): BP systolic 106–145; BP diastolic 51–76; PULSE 97–114; RESP 20–26; TEMP 36.3–36.8; O2SAT 94–100
[2020-08-01] MEDS: fentaNYL 100 MCG/2 ML INJ 25 MCG IV ×3 (00:26→09:02)
[2020-08-01] MEDS: metroNIDAZOLE 500 MG/100 ML PIGGYBACK 100 MG IV ×4 (02:36→20:17)
[2020-08-01] MEDS: PIPERACILLIN/TAZO 3.375 GM in SODIUM CHLORIDE 0.9% 100 ML 25 ML IV ×3 (04:38→20:19)
[2020-08-01 05:18] LABS: Add Manual Diff / Slide Review NO; Basophils Absolute Auto 0 /uL (0-100); Basophils Percent Auto 0.1 % (0-2); Eosinophils Absolute Auto 0 /uL (0-450); Hematocrit 32.6 % (41-53); Hemoglobin 10.4 g/dL (13.5-17.5); Lymphocytes Absolute Auto 500 /uL (1100-4500); Lymphocytes Percent Auto 3.2 % (25-40); Mean Corpuscular Hemoglobin 28.6 PG (26-34); Mean Corpuscular Volume 89.4 fL (80-100); Monocytes Absolute Auto 800 /uL (0-900); Monocytes Percent Auto 4.9 % (3-14); Neutrophils Absolute Auto 14800 /uL (1500-7000); Neutrophils Percent Auto 91.8 % (50-75); Platelet Count 260 X10^3/uL (150-400); Red Blood Cell Count 3.65 X10^6/uL (4.5-5.9); Red Cell Distribution Width 16.2 % (11.6-14.8); White Blood Cell Count 16.1 X10^3/uL (4.5-11.0)
[2020-08-01 05:25] LABS: Lactate (Lactic Acid) 0.7 mmol/L (0.7-2.1)
[2020-08-01 05:26] LABS: Alanine Aminotransferase 23 IU/L (<50); Albumin 2.4 g/dL (3.5-5.0); Albumin Globulin Ratio 0.9 (1.0-2.8); Alkaline Phosphatase 65 U/L (38-126); Aspartate Aminotransferase 24 IU/L (17-59); BUN Creatinine Ratio 35.4 (6-22); Bilirubin Total 0.3 mg/dL (0.2-1.3); Bilirubin Unconjugated 0.2 mg/dL (0.0-1.1); Blood Urea Nitrogen 56 mg/dL (9-20); Calcium 7.8 mg/dL (8.4-10.2); Carbon Dioxide 28 mmol/L (22-32); Chloride 105 mmol/L (98-107); Estimated Glomerular Filt Rate 43.2 mL/min (>60); Globulin 2.6 g/dL (1.7-4.1); Glucose 49 mg/dL (80-110); HEMOLYSIS < 15 (0-50); Magnesium 1.6 mg/dL (1.6-2.3); Potassium 4.7 mmol/L (3.4-5.1); Sodium 137 mmol/L (137-145)
[2020-08-01] MEDS: LACTATED RINGERS 1,000 ML 125 ML IV (05:34)
[2020-08-01] MEDS: DEXTROSE 50 % IN WATER 25 GM/50 ML SYRINGE TUBE (06:04)
[2020-08-01] MEDS: DEXTROSE 5%-0.45% NS 1,000 ML 125 ML IV (06:05)
--- NOTE | 2020-08-01 06:24 | PC.NURSE ---
Cooler Operator Note-Patient has been awake most of the night, has a persistent loose cough producing thick white sputum, using sx on own. IVP Fentanyl given for abdominal pain, has been repositioned multiple times for comfort, HOB elevated > 35 degrees most of night. A/Ox3, voice is hoarse and garbled d/t upper airway congestion, LS clear/dim, RR 20s. Started shift on venturi mask 12L/40%, changed to HFNC 8L. ST, BP stable, see vital trends. NGT patent to LIS, 150ml bile output, Lt MATHEW 55ml serous-sang fluid, Rt MATHEW 240ml dark bile fluid, dressings CDI. 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
[2020-08-01 06:56] LABS: Procalcitonin 4.88 ng/mL (<0.5)
[2020-08-01] MEDS: PANTOPRAZOLE 40 MG VIAL IV ×2 (08:39→20:16)
[2020-08-01] MEDS: FUROSEMIDE 40 MG/4 ML VIAL IV (08:39)
[2020-08-01] MEDS: DEXTROSE 5%-0.9% NS 1,000 ML 75 ML IV (08:42)
--- NOTE | 2020-08-01 09:30 | DI.RAD.S_ITS ---
PROCEDURE: FL UPPER GI SMALL BOWEL INDICATIONS: evaluate duodenum for leak and stenosis COMPARISON: [facility], CT, CT ABDOMEN PELVIS W CON, 07/30/2020, 12:53. FINDINGS: KUB: Preprocedural shipping technician film demonstrates an enteric tube with the tip in the mid stomach. There is a right surgical drain with the tip projecting in the left paramedian abdomen. There is a 2nd left abdominal drain in the left abdomen. Ventral abdominal staple line. No persistent pneumoperitoneum is seen. No suspicious abdominal calcifications. Visualized solid organ contours appear normal in size. No suspicious bony abnormalities. 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 Lumbar spine degenerative change. Esophagus: There is gastroesophageal reflux demonstrated during the exam. Stomach/small bowel: 120 cc Gastrografin IV contrast administered via the nasogastric tube. Additional 180 cc water was administered. Contrast pools in the fundus. With difficulty the patient was rotated right lateral decubitus which allowed a flow of contrast into the proximal duodenum. There is a slow flow of contrast through the duodenum. There is faint contrast collecting right lateral to the proximal duodenum which is beyond the expected contour of the duodenum. This is suspicious for small leak. This is near the right abdominal MATHEW drain. (This drain contains green bilious drainage). Suspect proximal duodenum edema. There is a slow progress of contrast through the duodenum. No obvious stricture. Contrast is purses into the proximal jejunum. Contrast is seen distally in the colon from prior CT. Persistent contrast in the gastric fundus. IMPRESSION: Small leak at the proximal duodenum with contrast seen lateral to the duodenum. This is near the right MATHEW drain which contains green bilious drainage. Dictated by: Quinton Velázquez M.D. on 08/01/2020 at 12:25 Approved by: Quinton Velázquez M.D. on 08/01/2020 at 12:37
--- NOTE | 2020-08-01 09:35 | PM.PN.1 ---
Subjective Subjective Date Patient Seen: 08/01/20 Time Patient Seen: 09:35 Interval history: Patient says he feels better than he has in months. He does not remember seeing his son yesterday. Has not been out of bed or ambulated since extubation yesterday. Exam Vital Signs (past 8 hours): - 08/01/20 02:00 08/01/20 03:00 08/01/20 04:00 Temperature 97.6 F Pulse Rate 113 H 114 H 103 H Respiratory Rate 26 H 23 21 Blood Pressure 120/56 L 117/76 106/51 L Pulse Oximetry 97 98 98 08/01/20 05:00 08/01/20 06:00 08/01/20 06:50 Temperature Pulse Rate 104 H 109 H 112 H Respiratory Rate 23 22 24 Blood Pressure 113/55 L 125/59 L Pulse Oximetry 97 97 96 08/01/20 07:00 08/01/20 08:00 08/01/20 08:16 Temperature 97.6 F 97.6 F Pulse Rate 107 H 111 H Respiratory Rate 23 20 Blood Pressure 111/59 L 135/64 Pulse Oximetry 94 98 96 Fraction of Inspired Oxygen 30 Oxygen Delivery Method High Flow Nasal Cannula Oxygen Flow Rate 11 Narrative Exam Narrative: GENERAL: Alert, comfortable, fatigued but much more alert than yesterday. Answers questions appropriately. CARDIOVASCULAR: Tachycardic in the 90s to low 100, regular rhythm. 1+ pedal edema. RESPIRATORY: non tachypneic, breathing comfortably on NC GASTROINTESTINAL: Abdomen soft, nondistended, dressings intact and clean, right MATHEW drain is deeply bilious; left side drain is serosanguineous MUSCULOSKELETAL: Equal tone and mass bilaterally. SKIN: Warm, dry, soft, appropriate color for ethnicity. No other lesions, rashes, or wounds. Objective Labs Result Diagrams: 08/01/20 05:00 08/01/20 05:00 Labs: Laboratory Results - last 24 hr 08/01/20 08/01/20 08/01/20 05:00 05:00 05:00 WBC 16.1 H RBC 3.65 L Hgb 10.4 L Hct 32.6 L MCV 89.4 MCH 28.6 MCHC 32.0 RDW 16.2 H Plt Count 260 Neut % (Auto) 91.8 H Lymph % (Auto) 3.2 L [place] % (Auto) 4.9 Eos % (Auto) 0.0 L Baso % (Auto) 0.1 Neut # (Auto) 64145 H Lymph # (Auto) 500 L [place] # (Auto) 800 Eos # (Auto) 0 Baso # (Auto) 0 Sodium 137 Potassium 4.7 Chloride 105 Carbon Dioxide 28 BUN 56 H Creatinine 1.58 H Estimated GFR 43.2 L BUN/Creatinine Ratio 35.4 H Glucose 49 L D Lactate 0.7 Calcium 7.8 L Magnesium 1.6 Total Bilirubin 0.3 Conjugated Bilirubin 0.0 Unconjugated Bilirubin 0.2 AST 24 ALT 23 Alkaline Phosphatase 65 Total Protein 5.0 L Albumin 2.4 L Globulin 2.6 Albumin/Globulin Ratio 0.9 L Procalcitonin 08/01/20 05:00 WBC RBC Hgb Hct MCV MCH MCHC RDW Plt Count Neut % (Auto) Lymph % (Auto) [place] % (Auto) Eos % (Auto) Baso % (Auto) Neut # (Auto) Lymph # (Auto) [place] # (Auto) Eos # (Auto) Baso # (Auto) Sodium Potassium Chloride Carbon Dioxide BUN Creatinine Estimated GFR BUN/Creatinine Ratio Glucose Lactate Calcium Magnesium Total Bilirubin Conjugated Bilirubin Unconjugated Bilirubin AST ALT Alkaline Phosphatase Total Protein Albumin Globulin Albumin/Globulin Ratio Procalcitonin 4.88 H PFSH Medical History BPH (benign prostatic hyperplasia) Chronic kidney disease DM2 (diabetes mellitus, type 2) HTN (hypertension) Smoker Social History household members: none Smoking Status: Current every day smoker Assessment & Plan Assessment and plan (1) ALF (acute kidney injury): Status: Acute (2) Sepsis associated hypotension: Status: Acute (3) Peritonitis (acute) generalized: Status: Acute (4) Perforated duodenal ulcer: Status: Acute (5) Smoker: Status: Acute (6) DM2 (diabetes mellitus, type 2): 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 He appears to have a leak based on the color of his right MATHEW drain, which is position right next to the duodenal repair. He says he feels much better than when he came in the ER. He has persistent tachycardia in the 100s, and a persistent white count. His procalcitonin is coming down. I am concerned that he does have a leak from the repair, and may need pyloric exclusion and gastrojejunostomy. We will put contrast down the NG tube today, and test for leak. If there is a leak, we will likely taken back to the operating room this afternoon. Recommendations: Keep NG tube in place to low intermittent suction Keep MATHEW drains emptied, record output, and reach charge Protect NG tube from inadvertent removal by patient or staff Would keep Molina in place for now DVT prophylaxis with SCDs, we will start chemical DVT prophylaxis once we have decided about surgery this afternoon, or after surgery if do end up going today We will ask the dietitian for recommendations for TPN, and plan on starting TPN this evening COVID-19 COVID-19 status: Negative Result date/Date tested (Pos, Neg/Pending): 07/30/20 Time Spent With Patient Time with patient: 25 - 35 minutes Quality VTE Deep Vein Thrombosis/Pulmonary Embolism Present on Admission: No
--- NOTE | 2020-08-01 10:26 | DIET.PN ---
Dietary Progress Note Assessment: 74y M requiring emergency repair of perforated duodenal ulcer referred to nutrition for TPN reccs. Pt remained intubated after surgery c pressor support, successfully extubated on 07/31 but remains NPO c NG to LIS anticipating several days of NPO to allow ulcer repair to heal. Pt may need repeat surgery for leak repair, leak test scheduled today. Pt recently hospitalized at [facility] for lung leison sent to [facility] for rehab. Pt reports several days of poor PO with N/V and food moving right through him into liquid stools. HT: 182.8cm WT: 88.7kg BMI: 26.5 Labs:WBC 16.1 H, hgb 10.4 L, Cr 1.58 H, eGFR 43.2 L, A1c 6.2, procalcitonin 4.88 H Nutrition Diagnosis: inadequate protein energy intake r/t prolonged NPO status aeb pt had poor intake several days prior to hospitalization and has been NPO x3d with forecasted prolonged NPO needed for gut rest secondary to large perforated duodenal ulcer repair. Interventions: 1. Day 1: Recc pt receive continuous TPN via PICC 1L Clinimix E 5/20 running at 42mL/h providing 50% kcal needs and 69% PRO needs. 2. Day 2: TPN goal rate is continuous 1.5L Clinimix E 5/20 running at 62mL/h with 500mL IVFE M, W, F as tolerated providing 86% kcal needs and 104% PRO needs. 3. Pt at moderate risk for refeeding per NPO x3d and poor intake prior to hospitalization. Please monitor refeeding labs and BG. 4. Daily weights please Diet Order: NPO requesting TPN nutrition support EER: 1,780 kcal (20kcal/kg per overweight), 72g PRO (0.8g/kg per renal) Monitoring/Evaluations: following daily, TPN tolerance, rate advancement.
[2020-08-01] MEDS: MORPHINE 2 MG/ML INJ IV (11:17)
--- NOTE | 2020-08-01 13:32 | CM.DPC ---
DCP Cont: Per Surgeon, pt was taken back to OR today for further surgical intervention and PICC was placed yesterday and after discussion with Evening Or Night Nurse Supervisor Yuliana pt will be started on TPN while he is healing and then plan of eventual advancing of patient's diet prior to d/c. Per Hospitalist, pt likely to be here about a week pending his medical progress and aware that plan right now is return to [facility] when medically stable and off TPN. [facility] will need to get [facility] closer to d/c. Currently no PASRR needed as pt is return to SNF. TERESA Dennison
[2020-08-01 14:06] LABS: Amylase Body Fluid 32499 IU/L
[2020-08-01] MEDS: OCTREOTIDE 100 MCG/ML VIAL 50 MCG SUBCUT ×2 (14:27→21:16)
--- NOTE | 2020-08-01 17:54 | P.PN_ITS ---
Subjective Subjective Date Patient Seen: 08/01/20 Interval history: Patient a 74-year-old male presented with acute peritonitis and sepsis. He is postop day 2 laparotomy for perforated duodenal ulcer. He was extubated yesterday morning. He has been off pressor support since yesterday morning. He has been getting intermittent IV fentanyl and states his abdominal discomfort is well controlled. He was aggressively fluid resuscitated for sepsis. He is requiring 50% FiO2 since yesterday. He received 40 mg IV Lasix this a.m. with significant diuresis and improvement of O2 requirements. He is currently on 2 L O2 nasal cannula. He has been having significant bilious output from his abdominal drain. He had Gastrografin study which did not show anastomotic leak from his surgical repair. He was started on octreotide to help decrease biliary output. He is also being started on TPN this evening. Renal function has been improving. Exam Vital Signs (past 8 hours): - 08/01/20 10:00 08/01/20 11:00 08/01/20 11:50 Temperature Pulse Rate 111 H Respiratory Rate 20 Blood Pressure Pulse Oximetry 97 98 97 08/01/20 12:00 08/01/20 13:00 08/01/20 16:10 Temperature 97.4 F L 98.1 F Pulse Rate 114 H 97 H Respiratory Rate 24 26 H Blood Pressure 119/58 L 127/59 L Pulse Oximetry 94 97 97 Fraction of Inspired Oxygen 30 Oxygen Delivery Method High Flow Nasal Cannula Oxygen Flow Rate 2 Narrative Exam Narrative: General: Alert and cooperative male appears comfortable Lungs: Diminished bilaterally Heart: Mildly tachycardic with regular rhythm Abdomen: MATHEW drain, surgical dressing clean and dry Extremities: Mild edema in distal extremities Neurological: Oriented to person and place, affect normal, no localizing signs Objective Labs Result Diagrams: 08/01/20 05:00 08/01/20 05:00 Labs: Laboratory Results - last 24 hr 08/01/20 08/01/20 08/01/20 05:00 05:00 05:00 WBC 16.1 H RBC 3.65 L Hgb 10.4 L Hct 32.6 L MCV 89.4 MCH 28.6 MCHC 32.0 RDW 16.2 H Plt Count 260 Neut % (Auto) 91.8 H Lymph % (Auto) 3.2 L [place] % (Auto) 4.9 Eos % (Auto) 0.0 L Baso % (Auto) 0.1 Neut # (Auto) 69490 H Lymph # (Auto) 500 L [place] # (Auto) 800 Eos # (Auto) 0 Baso # (Auto) 0 Sodium 137 Potassium 4.7 Chloride 105 Carbon Dioxide 28 BUN 56 H Creatinine 1.58 H Estimated GFR 43.2 L BUN/Creatinine Ratio 35.4 H Glucose 49 L D Lactate 0.7 Calcium 7.8 L Magnesium 1.6 Total Bilirubin 0.3 Conjugated Bilirubin 0.0 Unconjugated Bilirubin 0.2 AST 24 ALT 23 Alkaline Phosphatase 65 Total Protein 5.0 L Albumin 2.4 L Globulin 2.6 Albumin/Globulin Ratio 0.9 L Procalcitonin Fluid Amylase 08/01/20 08/01/20 05:00 11:48 WBC RBC Hgb Hct MCV MCH MCHC RDW Plt Count Neut % (Auto) Lymph % (Auto) [place] % (Auto) Eos % (Auto) Baso % (Auto) Neut # (Auto) Lymph # (Auto) [place] # (Auto) Eos # (Auto) Baso # (Auto) Sodium Potassium Chloride Carbon Dioxide BUN Creatinine Estimated GFR BUN/Creatinine Ratio Glucose Lactate Calcium Magnesium Total Bilirubin Conjugated Bilirubin Unconjugated Bilirubin AST ALT Alkaline Phosphatase Total Protein Albumin Globulin Albumin/Globulin Ratio Procalcitonin 4.88 H Fluid Amylase 79386 PFSH Medical History BPH (benign prostatic hyperplasia) Chronic kidney disease DM2 (diabetes mellitus, type 2) HTN (hypertension) Smoker Social History household members: none Smoking Status: Current every day smoker Assessment & Plan Assessment & Plan narrative: 1. Perforated duodenal ulcer, present on admission, active -status post laparotomy on 07/30 -change fentanyl to morphine for pain control now that blood pressure has improved -no evidence of GI bleed -Gastrografin study 08/01 does not show anastamosis leakage -start TPN for nutrition -Dr. Orourke started patient on octreotide to decrease MATHEW output 2. Sepsis due to acute peritonitis, present on admission, active -secondary to intra-abdominal infection from perforated ulcer -hemodynamics, WBC and procalcitonin all trending in good direction -continue Zosyn and Flagyl 3. Acute respiratory failure with hypoxia, present on admission, active, improving -secondary to sepsis, also exacerbated by volume resuscitation -supplemental O2 as needed -monitor fluid status and provide IV Lasix as needed 4. Acute kidney injury, likely secondary to ATN, present on admission, improving -improving, current 1.58 trending to baseline, baseline creatinine 1.5, was 2.22 on admit 5. Type 2 diabetes with hypoglycemia -at baseline well controlled, A1c 6.2 -was hypoglycemic morning of 08/01 and started on D5 NS -continue subcu NovoLog as needed, keep glucose 140-180 range -holding p.o. meds while patient NPO 6. Lung cavitary lesion and pleural fluid -worked up at [facility], recommended for repeat CT in 3-6 months per pulmonology. TB highly unlikely, most likely malignancy or bleb. 7. BPH -arriaga placed in the ER, continue finasteride when able. 8. Cigarette dependency -patient recently stop smoking Code: DNR but okay with intubation after surgery per discussion with patient. Surrogate decision maker is the patient's Son. DVT prophylaxis: SCDs, INR is 1.4 without anticoagulation Total critical care management of up to 60 minutes during course of today's evaluation. Quality VTE Deep Vein Thrombosis/Pulmonary Embolism Present on Admission: No
[2020-08-01] MEDS: AA 5 %/CALCIUM/LYTES/DEXT 20 % 1,000 ML with MULTIVITAMIN 10 ML, TRACE ELEMENTS 1 ML 42.125 ML IV (18:18)
[2020-08-01] MEDS: HEPARIN 5,000 UNIT/ML VIAL 5000 UNIT SUBCUT (20:17)
[2020-08-02] VITALS (9 sets, daily range): BP systolic 121–154; BP diastolic 58–83; PULSE 96–112; RESP 16–25; TEMP 35.7–36.8; O2SAT 92–99
[2020-08-02] MEDS: INSULIN LISPRO 100 UNIT/ML 3ML VIAL SUBCUT ×3 (00:07→17:47)
[2020-08-02] MEDS: MORPHINE 2 MG/ML INJ IV ×3 (01:58→22:30)
[2020-08-02] MEDS: DEXTROSE 5%-0.9% NS 1,000 ML 75 ML IV (02:24)
[2020-08-02] MEDS: metroNIDAZOLE 500 MG/100 ML PIGGYBACK 100 MG IV ×4 (02:24→19:58)
[2020-08-02] MEDS: PIPERACILLIN/TAZO 3.375 GM in SODIUM CHLORIDE 0.9% 100 ML 25 ML IV ×3 (04:29→19:58)
[2020-08-02 05:15] LABS: Hematocrit 33.4 % (41-53); Hemoglobin 10.6 g/dL (13.5-17.5); Mean Corpuscular HGB Conc 31.8 % (30-36); Mean Corpuscular Hemoglobin 28.8 PG (26-34); Mean Corpuscular Volume 90.6 fL (80-100); Platelet Count 252 X10^3/uL (150-400); Red Blood Cell Count 3.69 X10^6/uL (4.5-5.9); Red Cell Distribution Width 16.3 % (11.6-14.8); White Blood Cell Count 15.6 X10^3/uL (4.5-11.0)
[2020-08-02 05:21] LABS: Add Manual Diff / Slide Review YES
[2020-08-02 05:26] LABS: Alanine Aminotransferase 18 IU/L (<50); Albumin 2.4 g/dL (3.5-5.0); Albumin Globulin Ratio 0.9 (1.0-2.8); Alkaline Phosphatase 83 U/L (38-126); Aspartate Aminotransferase 19 IU/L (17-59); BUN Creatinine Ratio 30.1 (6-22); Bilirubin Total 0.4 mg/dL (0.2-1.3); Bilirubin Unconjugated 0.2 mg/dL (0.0-1.1); Blood Urea Nitrogen 41 mg/dL (9-20); Calcium 7.8 mg/dL (8.4-10.2); Carbon Dioxide 30 mmol/L (22-32); Chloride 102 mmol/L (98-107); Estimated Glomerular Filt Rate 51.4 mL/min (>60); Globulin 2.7 g/dL (1.7-4.1); Glucose 355 mg/dL (80-110); HEMOLYSIS 20 (0-50); Magnesium 1.6 mg/dL (1.6-2.3); Potassium 4.1 mmol/L (3.4-5.1); Sodium 137 mmol/L (137-145); Total Protein 5.1 g/dL (6.3-8.2)
[2020-08-02] MEDS: fentaNYL 100 MCG/2 ML INJ 25 MCG IV (05:31)
[2020-08-02 05:36] LABS: Neutrophils Absolute Manual 14976 /uL (3000-5900); RBC Morphology Normal Morphology; Total Cells Counted 100
[2020-08-02 05:43] LABS: Procalcitonin 2.43 ng/mL (<0.5)
--- NOTE | 2020-08-02 06:38 | PC.NURSE ---
Pt. is a&o but forgetful, VSS, is afebrile and HR sometimes sinus tach. Sats on 2Lhigh flow NC on the low to mid 90's, lungs decreased throughout with coarse upper airway ronchi and frequent cough with copious amt. of white secretions. Pt. provided yankauer and oral suction himself. Pt. has hypoactive BT's, no flatus, NGT LIS with 50 light green fluid output, Right MATHEW with a total of 50 green bilious output and Left MATHEW with 8 ml of serosanguinous output. Midline abd. drsg. CD&I. Molina with 1100 ml clear louisa output. Noted mild generalized edema. Pt. is very reluctant to receiving pain med even when his pain is a 5 and increased to 7 when repositioned, need a lot of convincing to medicate him so he can be turned and not cause so much discomfort. Pt's BG is running in the 300 range since TPN started yesterday pm, STRUCTURAL ANALYSIS ENGINEER informed of this and has changed coverage order as well as change maintenance IVF. Plan is to get pt. OOB and increase activity to avoid deconditioning.
--- NOTE | 2020-08-02 06:55 | P.PN_ITS ---
Subjective Subjective Date Patient Seen: 08/02/20 Time Patient Seen: 06:55 Interval history: No acute events overnight. Gastrografin UGI yesterday showed a small leak from the duodenal repair. He was started on octreotide and TPN to help seal the leak. Patient reports dry mouth, and would like some water. Exam Vital Signs (past 8 hours): - 08/02/20 00:00 08/02/20 04:00 Temperature 98.2 F 97.6 F Pulse Rate 101 H 100 H Respiratory Rate 20 16 Blood Pressure 121/59 L 124/58 L Pulse Oximetry 94 95 Fraction of Inspired Oxygen 30 Oxygen Delivery Method High Flow Nasal Cannula Oxygen Flow Rate 2 Narrative Exam Narrative: GENERAL: Alert, coughing up phlegm and suctioning himself. Answers questions appropriately. CARDIOVASCULAR: Tachycardic in the 90s to low 100, regular rhythm. 1+ pedal edema. RESPIRATORY: non tachypneic, breathing comfortably on NC, coarse breath sounds GASTROINTESTINAL: Abdomen soft, nondistended, dressings intact and clean, incision is clean and intact without any signs of cellulitis. Right MATHEW drain is deeply bilious; left side drain is serosanguineous MUSCULOSKELETAL: Equal tone and mass bilaterally. SKIN: Warm, dry, soft, appropriate color for ethnicity. No other lesions, rashes, or wounds. Objective Imaging Abdominal x-ray: Radiologist's impression: [address] [id number] ReportSigned Patient: Ted Perez CMR#: [id number]: 7Acct:[id number]/Sex: 74 / MDate of Service: 08/01/20Loc: [id number] Number: [id number] Procedure: KS upper GI small bowel Ordering Provider: Flor Cueva MD PROCEDURE: KS UPPER GI SMALL BOWEL INDICATIONS: evaluate duodenum for leak and stenosis COMPARISON: [facility], CT, CT ABDOMEN PELVIS W CON, 07/30/2020, 12:53. FINDINGS: KUB: Preprocedural vegetable packer film demonstrates an enteric tube with the tip in the mid stomach. There is a right surgical drain with the tip projecting in the left paramedian abdomen. There is a 2nd left abdominal drain in the left abdomen. Ventral abdominal staple line. No persistent pneumoperitoneum is seen. No suspicious abdominal calcifications. Visualized solid organ contours appear normal in size. No suspicious bony abnormalities. 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 Lumbar spine degenerative change. Esophagus: There is gastroesophageal reflux demonstrated during the exam. Stomach/small bowel: 120 cc Gastrografin IV contrast administered via the ld ogastric tube. Additional 180 cc water was administered. Contrast pools in the fundus. With difficulty the patient was rotated right lateral decubitus which allowed a flow of contrast into the proximal duodenum. There is a slow flow of contrast through the duodenum. There is faint contrast collecting right lateral to the proximal duodenum which is beyond the expected contour of the duodenum. This is suspicious for small leak. This is near the right abdominal MATHEW drain. (This drain contains green bilious drainage). Suspect proximal duodenum edema. There is a slow progress of contrast through the duodenum. No obvious stricture. Contrast is purses into the proximal jejunum. Contrast is seen distally in the colon from prior CT. Persistent contrast in the gastric fundus. IMPRESSION: Small leak at the proximal duodenum with contrast seen lateral to the duodenum. This is near the right MATHEW drain which contains green bilious drainage. Dictated by: Quinton Velázquez M.D. on 08/01/2020 at 12:25 Labs Result Diagrams: 08/02/20 04:50 08/02/20 04:50 Labs: Laboratory Results - last 24 hr 08/01/20 08/01/20 08/02/20 05:00 11:48 04:50 WBC 15.6 H RBC 3.69 L Hgb 10.6 L Hct 33.4 L MCV 90.6 MCH 28.8 MCHC 31.8 RDW 16.3 H Plt Count 252 Neut % (Auto) Not Reportable Lymph % (Auto) Not Reportable [place] % (Auto) Not Reportable Eos % (Auto) Not Reportable Baso % (Auto) Not Reportable Lymph # (Auto) Not Reportable [place] # (Auto) Not Reportable Baso # (Auto) Not Reportable Total Counted 100 Seg Neutrophils % 93.0 H Band Neutrophils % 3.0 Lymphocytes % (Manual) 2.0 L Monocytes % (Manual) 2.0 Neutrophils # (Manual) 49281 H RBC Morphology Normal morphology Sodium Potassium Chloride Carbon Dioxide BUN Creatinine Estimated GFR BUN/Creatinine Ratio Glucose Calcium Magnesium Total Bilirubin Conjugated Bilirubin Unconjugated Bilirubin AST ALT Alkaline Phosphatase Total Protein Albumin Globulin Albumin/Globulin Ratio Procalcitonin 4.88 H Fluid Amylase 82082 08/02/20 08/02/20 04:50 04:50 WBC RBC Hgb Hct MCV MCH MCHC RDW Plt Count Neut % (Auto) Lymph % (Auto) [place] % (Auto) Eos % (Auto) Baso % (Auto) Lymph # (Auto) [place] # (Auto) Baso # (Auto) Total Counted Seg Neutrophils % Band Neutrophils % Lymphocytes % (Manual) Monocytes % (Manual) Neutrophils # (Manual) RBC Morphology Sodium 137 Potassium 4.1 Chloride 102 Carbon Dioxide 30 BUN 41 H Creatinine 1.36 H Estimated GFR 51.4 L BUN/Creatinine Ratio 30.1 H Glucose 355 H D Calcium 7.8 L Magnesium 1.6 Total Bilirubin 0.4 Conjugated Bilirubin 0.0 Unconjugated Bilirubin 0.2 AST 19 ALT 18 Alkaline Phosphatase 83 Total Protein 5.1 L Albumin 2.4 L Globulin 2.7 Albumin/Globulin Ratio 0.9 L Procalcitonin 2.43 H Fluid Amylase PFSH Medical History BPH (benign prostatic hyperplasia) Chronic kidney disease DM2 (diabetes mellitus, type 2) HTN (hypertension) Smoker Social History household members: none Smoking Status: Current every day smoker Assessment & Plan Assessment and plan (1) ALF (acute kidney injury): Status: Acute (2) Sepsis associated hypotension: Status: Acute (3) Peritonitis (acute) generalized: Status: Acute (4) Perforated duodenal ulcer: Status: Acute (5) Smoker: Status: Acute (6) DM2 (diabetes mellitus, type 2): Qualifiers: Diabetes mellitus halfway insulin use: unspecified 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 His small bile leak, as proven on yesterday's Gastrografin upper GI. For now he is hemodynamically stable, and is tolerating conservative management of the leak. We have started octreotide and TPN. His blood sugar was over 300 this morning, and I have asked the hospitalist nurse- practitioner to stop his D5, and adjust his insulin. I will ask pharmacy to add insulin to his TPN tonight. The patient is complaining of dry mouth, and I have told him he can have water to drink as long as the NG tube is on continuous suction. I put in orders to that effect. The patient really needs to ambulate, and avoid becoming more debilitated. We will ask PT to work with him, and ask the nurses to have him up and out of bed as much as possible. Recommendations: Keep NG tube in place to low intermittent suction, put to continuous suction when patient is drinking water until all water is Suctioned out Keep MATHEW drains emptied, record output, and recharge Protect NG tube from inadvertent removal by patient or staff Would consider removing Molina, and having patient out of bed to ambulate as much as possible DVT prophylaxis with SCDs, and heparin TPN PT, ambulate COVID-19 COVID-19 status: Negative Result date/Date tested (Pos, Neg/Pending): 07/30/20 Time Spent With Patient Time with patient: 25 - 35 minutes Quality VTE Deep Vein Thrombosis/Pulmonary Embolism Present on Admission: No
[2020-08-02] MEDS: SODIUM CHLORIDE 0.9% 500 ML 30 ML IV (06:59)
[2020-08-02] MEDS: HEPARIN 5,000 UNIT/ML VIAL 5000 UNIT SUBCUT ×2 (08:51→19:59)
[2020-08-02] MEDS: PANTOPRAZOLE 40 MG VIAL IV ×2 (08:51→19:59)
--- NOTE | 2020-08-02 10:13 | PC.NURSE ---
Addendum entered by Foster Oglesby R.N. 08/02/20 14:37: Several attempts made by RNs to place NGT unsuccessful. Left message with PLUG SORTER for Dr. Cueva regarding MATHEW output total approx 1315. Spoke with Dr. Cueva via phone at 1430. Notified her that NGT placement not successful. Updated on MATHEW output. States she will be to bedside in about an hour to attempt placement. Original Note: 0945- Checked on pt. Noted to be confused. Had removed his O2 and pulled out his NGT. Pt asking where he is/why he is here. Provided reorientation which was successful after a few minutes of reiterating situation/date/time. Attempted to replace NGT without success. Notified Dr. Cueva who states she is unable to come to the bedside currently. Instructs to give the pt a break and re attempt. No ice chips/sips for now.
--- NOTE | 2020-08-02 11:05 | PT.IIE ---
Current Diagnoses Sepsis, unspecified organism (07/30/20) Type 2 diabetes mellitus with other specified complication (07/30/20) Type 2 diabetes mellitus without complications (07/30/20) Nicotine dependence, unspecified, uncomplicated (07/30/20) Essential (primary) hypertension (07/30/20) Hypotension, unspecified (07/30/20) Pleural effusion, not elsewhere classified (07/30/20) Gastric ulcer, unspecified as acute or chronic, without hemorrhage or perforation (07/30/20) Chronic or unspecified duodenal ulcer with perforation (07/30/20) Generalized (acute) peritonitis (07/30/20) Acute kidney failure, unspecified (07/30/20) Personal history of peptic ulcer disease (07/30/20) Surgery Performed Operation Date: 07/30/20 16:00 Actual Procedures p Laparoscopy, Diagnostic; converted to open Joel patch of duodenum with EGD - Flor Cueva MD s Esophagogastroduodenoscopy - Domenico Wheeler MD Medical History BPH (benign prostatic hyperplasia) Chronic kidney disease DM2 (diabetes mellitus, type 2) HTN (hypertension) Smoker Physical Therapy Inpatient Evaluation/Re-Eval M1 PT/OT-IP Prior Functional Status Start: 08/02/20 11:58 Freq: NEEDED Status: Active Protocol: Document 08/02/20 11:58 [facility] (Rec: 08/02/20 12:23 [facility] [id number]) Medical Review Prior Functional Status Medical History Reviewed Yes Communication Independent. Mobility and Gait Pt states prior to going to skilled rehab, pt was able to walk with the 4ww in the house . Per staff at SNF, pt had to use sruthi lift for transfers. Activities of Daily Living and IADL's Pt stating having more difficulty to do his dressing and bathing needs prior to going to skilled rehab. Social History Household Members none Living Arrangements Skilled Nurse Facility M2 PT-IP Current Condition Start: 08/02/20 12:45 Freq: NEEDED Status: Active Protocol: Document 08/02/20 11:05 AB (Rec: 08/02/20 13:19 AB [id number]) Physical Therapy Current Condition Current Condition Evaluation Date 08/02/20 Treatment Diagnosis perforated duodenal ulcer repair; generalized weakness Onset Date 07/30/20 Precautions Abdominal Surgery Precautions Log Roll,Lifting Restrictions, Gait Belt above Incisional Area Other Precautions falls M3 PT-IP Subjective Start: 08/02/20 12:45 Freq: NEEDED Status: Active Protocol: Document 08/02/20 11:05 AB (Rec: 08/02/20 13:19 AB [email or web address]) Subjective Physical Therapy Visit Type Type Initial Evaluation Visit Start Time 11:05 Visit Stop Time 11:45 Total Visit Minutes 40 Number of AUTOM[employer]ENT[employer] REPRESENTATIVE Visits 0 Physical Therapy Visit Comments Patient Comments pt is agreeable to do PT Therapy Pain Assessment Pain When Pain Assessed At Rest Location back Intensity 5 Scale Used Numeric (0 - 10) Pain Behaviors Facial Grimacing,Guarding Pain Management Techniques Elevation,Modification of Treatment,Re-positioning, Timing of Activity with Medications M4 PT-IP Mobility and Gait Start: 08/02/20 12:45 Freq: NEEDED Status: Active Protocol: Document 08/02/20 11:05 AB (Rec: 08/02/20 13:19 [email or web address]) PT-Bed Mobility Assessment Rolling Type of Rolling Log Rolling Level of Assist Maximal Assistance,2 Person Assistance Supine to Sit Supine to Sit Maximum Assistance,Total Assistance,2 Person Assistance ,Head of Bed Elevated,Bedrails PT-Transfer Assessment Sit to and From Stand Sit to and from Stand Maximum Assistance,Total Assistance,2 Person Assistance ,Use of Upper Extremities Equipment Transfer Assistive Device Gait Belt Transfers Transfer Destination Chair Transfer Technique Squat Pivot Transfer Ability Level of Assist Maximum Assistance,Total Assistance,2 Person Assistance ,Use of Upper Extremities Comments Mobility Comments pt able to answer questions but with confusion. completed log roll supine to sit with HOB elevated max A x 2 to total A x 2 and max cues. pt required mod to max A for sitting balance. completed sit <>stand x 3 and pt unable to tolerate much standing with L sided weakness and difficulty holding on to FWW with L hand and decrease trunk control with L sided increase leaning and LOB. completed squat pivot transfer max A x 2 to total A x 2 with PT in front of pt to assist and OT behind pt to assist. pt required total A x 2 for positioning on chair. call light and table placed within reach. Gait Assessment Comments Gait Comments unable PT-Balance Assessment Sitting Balance and Reactions Static Sitting Balance Ability Poor Dynamic Sitting Balance Ability Poor Standing Balance and Reactions Static Standing Balance Ability Poor Dynamic Standing Balance Ability Poor Device Used FWW M5 PT-IP Objective Assessments Start: 08/02/20 12:45 Freq: NEEDED Status: Active Protocol: Document 08/02/20 11:05 AB (Rec: 08/02/20 13:19 AB [email or web address]) Orientation Orientation/Cognition Level of Alertness Confusional State Orientation Name Safety Awareness Decreased Safety Awareness Memory Description Short Term Impaired Gross Range of Motion Lower Extremity ROM Assessment Within Functional Limits Strength Lower Extremity Strength Assessment Bilaterally Impaired Hip 3+/5 Knee 3+/5 Sensation Assessment Sensation Gross Sensation Right UE Impaired,Left UE Impaired,Right LE Impaired, Left LE Impaired Light Touch Impaired Sensation Description Numbness Comments Sensation Comments pt stated that he has peripheral neuropathy and has problems with knowing where his feet are Muscle Tone Muscle Tone WNL Yes M6 PT-IP Treatment Start: 08/02/20 12:45 Freq: NEEDED Status: Active Protocol: Document 08/02/20 11:05 AB (Rec: 08/02/20 13:19 AB [email or web address]) Physical Therapy Treatment Education Education Provided Safety M7 PT-IP Assessment and Plan Start: 08/02/20 12:45 Freq: NEEDED Status: Active Protocol: Document 08/02/20 11:05 AB (Rec: 08/02/20 13:19 AB [email or web address]) PT Summary Assessment and Plan Potential Rehabilitation Potential Fair Status of Condition at Evaluation Evolving Summary Impairments Pain,ROM,Strength,Balance, Coordination,Sensation,Tone, Cognition,Bed Mobility, Transfers,Gait,Activity Tolerance Assessment Summary pt requiring max A x 2 to total A x 2 with all tasks and unable to ambulate at this time. Pt has decrease sitting and standing balance and unable to tolerate much standing despite max A x 2 to total A x 2 provided. pt will require SNF rehab to improve strength and mobility. Goals Bed Mobility Goal Moderate Assistance Transfer Goal Moderate Assistance,Front Wheeled Walker Gait Goal Moderate Assistance,Front Wheel Walker Gait Distance 25 Other Goals improve bed mobility, transfers to [facility]; ambulation using FWW to [facility] ~ 50 ft Days to Meet Goals 10 Frequency of Treatment Frequency Of Treatment Once a Day Treatment Plan Physical Therapy Treatment Plan Bed Mobility Training,Transfer Training,Gait Training, Therapeutic Exercise,Balance Retraining,Post Op Education, Discharge Planning,Hot or Cold Pack,Neuromuscular Re-ed, Coordination Retraining,Manual Therapy Precautions Abdominal Surgery Precautions Log Roll,Lifting Restrictions, Gait Belt above Incisional Area Other Precautions falls Recommendations To Nursing Amount of Assist Needed Mechanical Lift Discharge Recommendations PT Discharge Recommendations SNF Rehab Transportation Needs at Discharge Wheelchair/Cabulance,Stretcher /Ambulance
--- NOTE | 2020-08-02 11:54 | OT.IP.EVAL ---
Current Diagnoses Sepsis, unspecified organism (07/30/20) Type 2 diabetes mellitus with other specified complication (07/30/20) Type 2 diabetes mellitus without complications (07/30/20) Nicotine dependence, unspecified, uncomplicated (07/30/20) Essential (primary) hypertension (07/30/20) Hypotension, unspecified (07/30/20) Pleural effusion, not elsewhere classified (07/30/20) Gastric ulcer, unspecified as acute or chronic, without hemorrhage or perforation (07/30/20) Chronic or unspecified duodenal ulcer with perforation (07/30/20) Generalized (acute) peritonitis (07/30/20) Acute kidney failure, unspecified (07/30/20) Personal history of peptic ulcer disease (07/30/20) Surgery Performed Operation Date: 07/30/20 16:00 Actual Procedures p Laparoscopy, Diagnostic; converted to open Joel patch of duodenum with EGD - Flor Cueva MD s Esophagogastroduodenoscopy - Domenico Wheeler MD Past Medical History BPH (benign prostatic hyperplasia) Chronic kidney disease DM2 (diabetes mellitus, type 2) HTN (hypertension) Smoker Occupational Therapy Inpatient Evaluation/Re-Eval M1 PT/OT-IP Prior Functional Status Start: 08/02/20 11:58 Freq: NEEDED Status: Active Protocol: Document 08/02/20 11:58 [facility] (Rec: 08/02/20 12:23 [facility] [id number]) Medical Review Prior Functional Status Medical History Reviewed Yes Communication Independent. Mobility and Gait Pt states prior to going to skilled rehab, pt was able to walk with the 4ww in the house . Per staff at SNF, pt had to use sruthi lift for transfers. Activities of Daily Living and IADL's Pt stating having more difficulty to do his dressing and bathing needs prior to going to skilled rehab. Social History Household Members none Living Arrangements Skilled Nurse Facility M2 OT-IP Current Condition Start: 08/02/20 11:58 Freq: Status: Active Protocol: Document 08/02/20 11:58 [facility] (Rec: 08/02/20 12:23 [facility] [id number]) Occupational Therapy Current Condition Current Condition Evaluation Date 08/02/20 Treatment Diagnosis Perforated Ulcer, sepsis, decreased mobility. Diagnosis Onset Date 07/30/20 Post Operative Precautions Abdominal Surgery Precautions Log Roll,Lifting Restrictions, Gait Belt above Incisional Area M3 OT- IP Subjective and Pain Start: 08/02/20 11:58 Freq: Status: Active Protocol: Document 08/02/20 11:58 [facility] (Rec: 08/02/20 12:23 [facility] [id number]) OT- Subjective Occupational Therapy Visit Type Type Initial Evaluation Visit Start Time 11:23 Visit Stop Time 11:54 Total Visit Minutes 31 Occupational Therapy Visit Comments Patient Comments Pt willing to try to get up. PT present initially when OT came in for OT eval. Patient/Caregiver Goals To be able to drink water. OT Pain Assessment Pain When Pain Assessed During Mobility Pain Present Pain Present Pain Reported M4 OT- IP ADL's Start: 08/02/20 11:58 Freq: Status: Active Protocol: Document 08/02/20 11:58 [facility] (Rec: 08/02/20 12:23 [facility] [id number]) OT [id number] Comments OT Self-Feeding Comments Pt is NPO. OT ADL-Grooming Comments OT Grooming Comments Pt states able to wash his face earlier. OT ADL-Dressing General Eval Lower Body Dressing Ability Maximum Assistance OT ADL-Toileting General Evaluation Toileting Ability Total Assistance Areas Needing Assistance Empty Catheter or Colostomy Comments OT Toileting Comments Molina in place. OT ADL-Bathing Comments OT Bathing Comments Sponge bath more appropriate at this time. M5 OT- IP IADL's Start: 08/02/20 11:58 Freq: Status: Active Protocol: Document 08/02/20 11:58 [facility] (Rec: 08/02/20 12:23 [facility] [id number]) OT-Instrumental Activities of Daily Living Home Safety Awareness Home Safety Comments Pt currently at SNF. Medication Management Medication Management Caregiver Administers Money Management Money Management Caregiver Provides Assistance Meal Preparation Meal Preparation Caregiver Provides Assist Paedodontist Paedodontist Caregiver Provides Assist M6 OT- IP Functional Cognition Start: 08/02/20 11:58 Freq: Status: Active Protocol: Document 08/02/20 11:58 [facility] (Rec: 08/02/20 12:23 [facility] [id number]) Cognitive Factors Limiting Selfcare Function Cognitive Ability Level of Alertness Alert Patient Orientation Name,Place,Situation Attention Span Ability Capable of Focused Attention, Capable of Sustained Attention Ability to Follow Commands Able to Follow One Step Commands with Increased Time, Able to Follow One Step Commands with Repetition Safety Awareness Underestimates Need for Assistance Cognitive Comments Cognitive Assessment Comments Pt able to follow commands for bed mobility needs. Pt needed continuous reminders that he is not allowed to drink water at this time. OT- Vision and Hearing OT- Hearing Assessment OT- Hearing Assessment WFL OT- Vision Assessment Visual Acuity Glasses All The Time Vision Assessment Comments Pt able to read the clock accurately. M7 OT- IP Mobility and Balance Start: 08/02/20 11:58 Freq: Status: Active Protocol: Document 08/02/20 11:58 [facility] (Rec: 08/02/20 12:23 [facility] [id number]) OT- Bed Mobility Assessment Rolling Type of Rolling Roll to Right Level of Assistance Maximum Assistance,2 Person Assistance Supine to Sit Supine to Sit Assist Maximum Assistance,2 Person Assistance Scooting Scooting to Edge of Bed Maximum Assistance,2 Person Assistance OT-Transfer Assessment Sit to and From Stand Sit to and from Stand Maximum Assistance,2 Person Assistance Transfers Transfer Ability Maximum Assistance,2 Person Assistance Technique Transfer Destination Bed,Chair Transfer Technique Squat Pivot Devices Transfer Assistive Devices Gait Belt,Front Wheeled Walker Comments Mobility Comments Pt not able to stand upright with FWW in order to try a transfer as leaning to the left and right and MAX AX2 to stand. Pt's legs were buckling. Opted for squat/stand pivot transfer MAX A X2. Best at this time for nursing to use mechanical lift for his transfer needs. OT- Balance Assessment Sitting Balance and Reactions Static Sitting Balance Ability Poor Dynamic Sitting Balance Ability Poor Standing Balance and Reactions Static Standing Balance Ability Poor Dynamic Standing Balance Ability Poor Comments Other Balance Tests/Deviations/Treatment JOSEY to MOD A x1 for balance : while sitting on the edge of the bed. M8 OT- IP Objective Assessments Start: 08/02/20 11:58 Freq: Status: Active Protocol: Document 08/02/20 11:58 [facility] (Rec: 08/02/20 12:23 [facility] [id number]) OT Gross Range of Motion Upper Extremity Range of Motion Assessment Bilaterally Impaired OT Strength Upper Extremity Strength Assessment Bilaterally Impaired Comments Strength Comments BUE 3-/5 to 4-/5 form proximal to distal. OT- Coordination Assessment Comments Coordination Comments decreased due to swelling and neuropathy. M9 OT- IP Assessment and Plan Start: 08/02/20 11:58 Freq: Status: Active Protocol: Document 08/02/20 11:58 [facility] (Rec: 08/02/20 12:23 [facility] [id number]) OT Summary Assessment and Plan Potential Rehabilitation Potential Fair Analytic Complexity at Evaluation High Summary OT Impairments Pain,Range of Motion,Strength, Balance,Coordination, Functional Cognition, Functional Mobility,Self- Feeding,Grooming,Dressing, Toileting,Bathing,Toilet Transfers,Shower Transfers, Activity Tolerance Progress Towards Goals Slow Progress due to Pain,Slow Progress due to Medical Issues,Slow Progress due to Activity Tolerance,Slow Progress due to Cognition Assessment Summary Pt high complexity and needing extensive 2-3 person assist for functional mobility needs at this time for bed mobility. Pt present with decreased overall activity tolerance, strength, balance, and now dependent for most ADl and functional mobility needs. Pt when medically stable to return to skilled rehab. Goals Grooming Goal Standby Assistance Dressing Goal Moderate Assistance Toileting Goal Moderate Assistance Bathing Goal Moderate Assistance Toilet Transfer Goal Moderate Assistance Shower Transfer Goal Moderate Assistance Days to Meet Goals 30 Frequency of Treatment Frequency Of Treatment Once a Day Treatment Plan OT Treatment Plan ADL Training,Functional Cognition Training,Functional Mobility,Patient/Family Education,Discharge Planning Other Treatment Recommendations and Next Pt to be able to stand for one Treatment Focus minute with MAX AX 2 and FWW to help increase overall activity tolerance in preperation for transfer to [facility]. Discharge Recommendations OT Discharge Recommendations SNF Rehab Transportation Needs at Discharge Wheelchair/Cabulance
--- NOTE | 2020-08-02 12:24 | CM.DPC ---
Addendum entered by Ranjana Duvall LPN 08/02/20 12:31: Spoke by phone with Ted Rockwell.: [phone]. He confirms also plan for return to [facility] at d/c from hospital and our plan is to have him come and live with us after he has completed his care at [facility]. Original Note: DCP: continued: case received, EMR reviewed. Met with pt and introduced self and role. Pt confirms he plans to return to [facility] Care/Rehab at d/c. A voice message is also left for pt's son Ted re above. At this time NGT has been pulled out while pt was confused earlier today. He pulled o2 off also. Pt at this time is up in chair, o2 in place. TPN is started/PICC in place. [facility] confirms they will have a bed for pt when he is stable for d/c (expected to be in hospital for several more days). [facility] MCR auth will need to be obtained again. DCP team will follow.
[2020-08-02] MEDS: OCTREOTIDE 100 MCG/ML VIAL 50 MCG SUBCUT (12:37)
[2020-08-02] MEDS: INSULIN REGULAR 100 UNIT/ML 3 ML VIAL 10 UNIT IV (12:38)
--- NOTE | 2020-08-02 12:52 | PM.PN.1 ---
Subjective Subjective Date Patient Seen: 08/02/20 Interval history: Patient a 74-year-old male presented with acute peritonitis and septic shock, now resolved. He is postop day 3 laparotomy for perforated duodenal ulcer. He has a small anastomosis leak. NG tube came out. He is having significant bilious output in 1 of the MATHEW drains. He was also started on octreotide to help decrease drainage. For nutrition he is on TPN. Blood sugars have been higher with glucose today around 350. We are adding insulin to his TPN and can give IV insulin as needed in addition to sliding scale. Respiratory status has been stable, currently on 2 L NC. Patient states pain is adequately controlled. Exam Vital Signs (past 8 hours): - 08/02/20 08:00 08/02/20 12:00 Temperature 98.2 F 97.2 F L Pulse Rate 109 H 96 H Respiratory Rate 20 20 Blood Pressure 123/58 L 132/63 Pulse Oximetry 95 94 Fraction of Inspired Oxygen 30 Oxygen Delivery Method High Flow Nasal Cannula Oxygen Flow Rate 2 Narrative Exam Narrative: General: Alert and cooperative male in no distress unless he is moved Lungs: Clear to auscultation Heart: Regular rhythm Abdomen: Surgical dressings clean and dry, MATHEW drain x2, 1 MATHEW drain has bilious drainage Extremities: No edema Neurological: Oriented, affect diminished, no focal weakness Objective Labs Result Diagrams: 08/02/20 04:50 08/02/20 04:50 Labs: Laboratory Results - last 24 hr 08/01/20 08/02/20 08/02/20 11:48 04:50 04:50 WBC 15.6 H RBC 3.69 L Hgb 10.6 L Hct 33.4 L MCV 90.6 MCH 28.8 MCHC 31.8 RDW 16.3 H Plt Count 252 Neut % (Auto) Not Reportable Lymph % (Auto) Not Reportable Kimball % (Auto) Not Reportable Eos % (Auto) Not Reportable Baso % (Auto) Not Reportable Lymph # (Auto) Not Reportable Kimball # (Auto) Not Reportable Baso # (Auto) Not Reportable Total Counted 100 Seg Neutrophils % 93.0 H Band Neutrophils % 3.0 Lymphocytes % (Manual) 2.0 L Monocytes % (Manual) 2.0 Neutrophils # (Manual) 68369 H RBC Morphology Normal morphology Sodium 137 Potassium 4.1 Chloride 102 Carbon Dioxide 30 BUN 41 H Creatinine 1.36 H Estimated GFR 51.4 L BUN/Creatinine Ratio 30.1 H Glucose 355 H D Calcium 7.8 L Magnesium 1.6 Total Bilirubin 0.4 Conjugated Bilirubin 0.0 Unconjugated Bilirubin 0.2 AST 19 ALT 18 Alkaline Phosphatase 83 Total Protein 5.1 L Albumin 2.4 L Globulin 2.7 Albumin/Globulin Ratio 0.9 L Procalcitonin Fluid Amylase [id number] 08/02/20 04:50 WBC RBC Hgb Hct MCV MCH MCHC RDW Plt Count Neut % (Auto) Lymph % (Auto) Kimball % (Auto) Eos % (Auto) Baso % (Auto) Lymph # (Auto) Kimball # (Auto) Baso # (Auto) Total Counted Seg Neutrophils % Band Neutrophils % Lymphocytes % (Manual) Monocytes % (Manual) Neutrophils # (Manual) RBC Morphology Sodium Potassium Chloride Carbon Dioxide BUN Creatinine Estimated GFR BUN/Creatinine Ratio Glucose Calcium Magnesium Total Bilirubin Conjugated Bilirubin Unconjugated Bilirubin AST ALT Alkaline Phosphatase Total Protein Albumin Globulin Albumin/Globulin Ratio Procalcitonin 2.43 H Fluid Amylase PFSH Medical History BPH (benign prostatic hyperplasia) Chronic kidney disease DM2 (diabetes mellitus, type 2) HTN (hypertension) Smoker Social History household members: none Smoking Status: Current every day smoker Assessment & Plan Assessment & Plan narrative: 1. Perforated duodenal ulcer, present on admission, active -status post laparotomy on 07/30 -no evidence of GI bleed -anastamosis leak managed by surgery, patient was started on octreotide, monitoring MATHEW output, and he may need to go back to OR -continue TPN for nutrition, increase to goal rate, intra lipids Q Thursday, Thursday and Thursday -manage hyperglycemia with TPN, see below -continue morphine for pain control -per surgery, okay to mobilize with PT, remove Arriaga 2. Sepsis with septic shock due to acute peritonitis, present on admission, active -secondary to intra-abdominal infection from perforated ulcer -hemodynamics stable, WBC and procalcitonin all trending in good direction -continue Zosyn and Flagyl 3. Acute respiratory failure with hypoxia, present on admission, active, improving -secondary to sepsis, also exacerbated by volume resuscitation -supplemental O2 as needed -monitor fluid status and provide IV Lasix as needed 4. Acute kidney injury, likely secondary to ATN, present on admission, resolved -baseline creatinine 1.5, was 2.22 on admit 5. Type 2 diabetes -at baseline well controlled, A1c 6.2 -initially hypoglycemic now severely hyperglycemic since initiation of TPN -added 20 units insulin to TPN starting evening 6/4 -May use IV regular insulin as needed for severe hypoglycemia -continue subcu NovoLog medium dose protocol as needed, keep glucose 140-180 range -holding p.o. meds while patient NPO 6. Lung cavitary lesion and pleural fluid -worked up at [facility], recommended for repeat CT in 3-6 months per pulmonology. TB highly unlikely, most likely malignancy or bleb. 7. BPH -arriaga placed in the ER, continue finasteride when able. 8. Cigarette dependency -patient recently stop smoking Code: DNR but okay with intubation after surgery per discussion with patient. Surrogate decision maker is the patient's Son. DVT prophylaxis: SCDs, INR is 1.4 without anticoagulation Total critical care management of up to 60 minutes during course of today's evaluation. Quality VTE Deep Vein Thrombosis/Pulmonary Embolism Present on Admission: No
--- NOTE | 2020-08-02 13:13 | DIET.PN ---
Dietary Progress Note RD f/u for 74y M requiring emergency repair of perforated duodenal ulcer referred to nutrition for TPN reccs. Pt tolerating TPN at 42mL/h, surgery ordered tonights bag to run at goal of 62mL/h. Hospitalist managing pts high BG c ssi and insulin added to TPN. Refeeding labs WNL. Pts renal fxn improving. HT: 182.8cm WT: 88.7kg BMI: 26.5 Labs:WBC 15.6 H, hgb 10.6 L, Cr 1.36 H, eGFR 51.4 L, A1c 6.2, procalcitonin 2.43 H, BG 355 H Nutrition Diagnosis: inadequate protein energy intake r/t prolonged NPO status aeb pt had poor intake several days prior to hospitalization and has been NPO x3d with forecasted prolonged NPO needed for gut rest secondary to large perforated duodenal ulcer repair. Interventions: 1. TPN goal rate is continuous 1.5L Clinimix E 5/20 running at 62mL/h with 500mL IVFE M, W, F as tolerated providing 86% kcal needs and 104% PRO needs. 2. Daily weights please Diet Order: NPO requesting TPN nutrition support EER: 1,780 kcal (20kcal/kg per overweight), 72g PRO (0.8g/kg per renal) Monitoring/Evaluations: following daily, TPN tolerance, rate advancement, associated labs.
[2020-08-02] MEDS: AA 5 %/CALCIUM/LYTES/DEXT 20 % 1,500 ML with MULTIVITAMIN 10 ML, TRACE ELEMENTS 1 ML, I... 62.967 ML IV (17:59)
[2020-08-02] MEDS: OCTREOTIDE 100 MCG/ML VIAL SUBCUT (20:00)
[2020-08-03] VITALS (7 sets, daily range): BP systolic 131–167; BP diastolic 63–87; PULSE 102–116; RESP 17–24; TEMP 36.3–37.2; O2SAT 92–96
[2020-08-03] MEDS: INSULIN LISPRO 100 UNIT/ML 3ML VIAL SUBCUT ×5 (00:44→18:17)
[2020-08-03] MEDS: fentaNYL 100 MCG/2 ML INJ 25 MCG IV (01:50)
[2020-08-03] MEDS: metroNIDAZOLE 500 MG/100 ML PIGGYBACK 100 MG IV ×4 (02:22→20:19)
[2020-08-03] MEDS: PIPERACILLIN/TAZO 3.375 GM in SODIUM CHLORIDE 0.9% 100 ML 25 ML IV ×3 (04:57→20:19)
[2020-08-03] MEDS: SODIUM CHLORIDE 0.9% 500 ML 30 ML IV (04:57)
[2020-08-03 05:41] LABS: Add Manual Diff / Slide Review NO; Alanine Aminotransferase 13 IU/L (<50); Albumin 2.4 g/dL (3.5-5.0); Albumin Globulin Ratio 0.9 (1.0-2.8); Alkaline Phosphatase 88 U/L (38-126); Aspartate Aminotransferase 12 IU/L (17-59); BUN Creatinine Ratio 30.9 (6-22); Basophils Absolute Auto 0 /uL (0-100); Basophils Percent Auto 0.2 % (0-2); Bilirubin Total 0.3 mg/dL (0.2-1.3); Blood Urea Nitrogen 34 mg/dL (9-20); Carbon Dioxide 34 mmol/L (22-32); Chloride 106 mmol/L (98-107); Eosinophils Absolute Auto 0 /uL (0-450); Estimated Glomerular Filt Rate > 60.0 mL/min (>60); Globulin 2.7 g/dL (1.7-4.1); Glucose 306 mg/dL (80-110); HEMOLYSIS < 15 (0-50); Hematocrit 36.4 % (41-53); Hemoglobin 11.6 g/dL (13.5-17.5); Lymphocytes Absolute Auto 500 /uL (1100-4500); Lymphocytes Percent Auto 3.4 % (25-40); Mean Corpuscular HGB Conc 31.8 % (30-36); Mean Corpuscular Hemoglobin 28.6 PG (26-34); Mean Corpuscular Volume 89.9 fL (80-100); Monocytes Absolute Auto 1500 /uL (0-900); Monocytes Percent Auto 10.2 % (3-14); Neutrophils Absolute Auto 12800 /uL (1500-7000); Neutrophils Percent Auto 86.2 % (50-75); Platelet Count 300 X10^3/uL (150-400); Potassium 3.7 mmol/L (3.4-5.1); Red Blood Cell Count 4.05 X10^6/uL (4.5-5.9); Red Cell Distribution Width 16.2 % (11.6-14.8); Sodium 141 mmol/L (137-145); Total Protein 5.1 g/dL (6.3-8.2); White Blood Cell Count 14.9 X10^3/uL (4.5-11.0)
[2020-08-03] MEDS: HEPARIN 5,000 UNIT/ML VIAL 5000 UNIT SUBCUT ×2 (08:54→20:18)
[2020-08-03] MEDS: PANTOPRAZOLE 40 MG VIAL IV ×2 (08:55→20:18)
[2020-08-03] MEDS: OCTREOTIDE 100 MCG/ML VIAL SUBCUT ×3 (09:30→20:18)
--- NOTE | 2020-08-03 10:52 | PT.IPTN ---
Current Diagnoses Sepsis, unspecified organism (07/30/20) Type 2 diabetes mellitus with other specified complication (07/30/20) Type 2 diabetes mellitus without complications (07/30/20) Nicotine dependence, unspecified, uncomplicated (07/30/20) Essential (primary) hypertension (07/30/20) Hypotension, unspecified (07/30/20) Pleural effusion, not elsewhere classified (07/30/20) Gastric ulcer, unspecified as acute or chronic, without hemorrhage or perforation (07/30/20) Chronic or unspecified duodenal ulcer with perforation (07/30/20) Generalized (acute) peritonitis (07/30/20) Acute kidney failure, unspecified (07/30/20) Personal history of peptic ulcer disease (07/30/20) Surgery Performed Operation Date: 07/30/20 16:00 Actual Procedures p Laparoscopy, Diagnostic; converted to open Joel patch of duodenum with EGD - Flor Cueva MD s Esophagogastroduodenoscopy - Domenico Wheeler MD Physical Therapy Treatment Note M2 PT-IP Current Condition Start: 08/02/20 12:45 Freq: NEEDED Status: Active Protocol: Document 08/02/20 11:05 AB (Rec: 08/02/20 13:19 AB [id number]) Physical Therapy Current Condition Current Condition Evaluation Date 08/02/20 Treatment Diagnosis perforated duodenal ulcer repair; generalized weakness Onset Date 07/30/20 Precautions Abdominal Surgery Precautions Log Roll,Lifting Restrictions, Gait Belt above Incisional Area Other Precautions falls M3 PT-IP Subjective Start: 08/02/20 12:45 Freq: NEEDED Status: Active Protocol: Document 08/03/20 10:53 AB (Rec: 08/03/20 13:23 AB [email or web address]) Subjective Physical Therapy Visit Type Type Treatment Note Visit Start Time 10:53 Visit Stop Time 11:23 Total Visit Minutes 30 Number of JET ENGINE MECHANIC Visits 0 Physical Therapy Visit Comments Patient Comments pt requires motivation to participate; seems to have more confusion today compared to yesterday M4 PT-IP Mobility and Gait Start: 08/02/20 12:45 Freq: NEEDED Status: Active Protocol: Document 08/03/20 10:53 AB (Rec: 08/03/20 13:23 AB [id number]) PT-Bed Mobility Assessment Supine to Sit Supine to Sit Maximum Assistance,2 Person Assistance,Head of Bed Elevated,Bedrails PT-Transfer Assessment Comments Mobility Comments pt supine in bed and requiring motivation to participate. pt refused to have socks on. completed supine to sit max A x 2 and max cues with HOB elevated. Able to sit on EOB SBA to CGA. pt has been asking for water. educated pt that he is NPO per doctor's order and pt is becoming agitated and stated that the doctor told him that he can have as much ice or water as he wants. Asked nurse and stated that pt cannot have water. instructed pt to stand but pt refused and also adamantly refuses to sit on the chair. pt stated that he will not move from the bed until he gets his water. pt becoming agitated and borderline aggressive. instructed pt to lay back in bed and completed after much coaxing form PT/OT. required max A x 2 and max cues. max A x 2 for positioning in bed. call light and table placed within reach. M5 PT-IP Objective Assessments Start: 08/02/20 12:45 Freq: NEEDED Status: Active Protocol: Document 08/02/20 11:05 AB (Rec: 08/02/20 13:19 AB [id number]) Orientation Orientation/Cognition Level of Alertness Confusional State Orientation Name Safety Awareness Decreased Safety Awareness Memory Description Short Term Impaired Gross Range of Motion Lower Extremity ROM Assessment Within Functional Limits Strength Lower Extremity Strength Assessment Bilaterally Impaired Hip 3+/5 Knee 3+/5 Sensation Assessment Sensation Gross Sensation Right UE Impaired,Left UE Impaired,Right LE Impaired, Left LE Impaired Light Touch Impaired Sensation Description Numbness Comments Sensation Comments pt stated that he has peripheral neuropathy and has problems with knowing where his feet are Muscle Tone Muscle Tone WNL Yes M6 PT-IP Treatment Start: 08/02/20 12:45 Freq: NEEDED Status: Active Protocol: Document 08/03/20 10:53 AB (Rec: 08/03/20 13:23 AB [email or web address]) Physical Therapy Treatment Education Education Provided Safety M7 PT-IP Assessment and Plan Start: 08/02/20 12:45 Freq: NEEDED Status: Active Protocol: Document 08/03/20 10:53 AB (Rec: 08/03/20 13:23 AB [id number]) PT Summary Assessment and Plan Potential Rehabilitation Potential Fair Summary Impairments Pain,ROM,Strength,Balance, Coordination,Sensation,Tone, Cognition,Bed Mobility, Transfers,Gait,Activity Tolerance Progress Towards Goals Slow Progress due to Medical Issues,Slow Progress due to Activity Tolerance,Slow Progress - Other Assessment Summary pt seems to be more confuse today compared to yesterday. required max A x 2 for bed mobility and refused to transfer to the chair. pt easily agitated and limited with mobility and activity today. will continue to assess progress. pt continues to need 24/7 assist. Goals Bed Mobility Goal Moderate Assistance Transfer Goal Moderate Assistance,Front Wheeled Walker Gait Goal Moderate Assistance,Front Wheel Walker Gait Distance 25 Other Goals improve bed mobility, transfers to CGA; ambulation using FWW to CGA ~ 50 ft Days to Meet Goals 10 Frequency of Treatment Frequency Of Treatment Once a Day Treatment Plan Physical Therapy Treatment Plan Bed Mobility Training,Transfer Training,Gait Training, Therapeutic Exercise,Balance Retraining,Post Op Education, Discharge Planning,Hot or Cold Pack,Neuromuscular Re-ed, Coordination Retraining,Manual Therapy Precautions Abdominal Surgery Precautions Log Roll,Lifting Restrictions, Gait Belt above Incisional Area Other Precautions falls Recommendations To Nursing Amount of Assist Needed Mechanical Lift Discharge Recommendations PT Discharge Recommendations SNF Rehab Transportation Needs at Discharge Wheelchair/Cabulance,Stretcher /Ambulance
--- NOTE | 2020-08-03 11:21 | OT.IP.TRT ---
Current Diagnoses Sepsis, unspecified organism (07/30/20) Type 2 diabetes mellitus with other specified complication (07/30/20) Type 2 diabetes mellitus without complications (07/30/20) Nicotine dependence, unspecified, uncomplicated (07/30/20) Essential (primary) hypertension (07/30/20) Hypotension, unspecified (07/30/20) Pleural effusion, not elsewhere classified (07/30/20) Gastric ulcer, unspecified as acute or chronic, without hemorrhage or perforation (07/30/20) Chronic or unspecified duodenal ulcer with perforation (07/30/20) Generalized (acute) peritonitis (07/30/20) Acute kidney failure, unspecified (07/30/20) Personal history of peptic ulcer disease (07/30/20) Surgery Performed Operation Date: 07/30/20 16:00 Actual Procedures p Laparoscopy, Diagnostic; converted to open Joel patch of duodenum with EGD - Flor Cueva MD s Esophagogastroduodenoscopy - Domenico Wheeler MD Occupational Therapy Treatment Note M2 OT-IP Current Condition Start: 08/02/20 11:58 Freq: Status: Active Protocol: Document 08/02/20 11:58 [facility] (Rec: 08/02/20 12:23 CCC [id number]) Occupational Therapy Current Condition Current Condition Evaluation Date 08/02/20 Treatment Diagnosis Perforated Ulcer, sepsis, decreased mobility. Diagnosis Onset Date 07/30/20 Post Operative Precautions Abdominal Surgery Precautions Log Roll,Lifting Restrictions, Gait Belt above Incisional Area M3 OT- IP Subjective and Pain Start: 08/02/20 11:58 Freq: Status: Active Protocol: Document 08/03/20 11:33 CGR (Rec: 08/03/20 11:50 CGR [id number]) OT- Subjective Occupational Therapy Visit Type Type Progress Note Visit Start Time 10:57 Visit Stop Time 11:21 Total Visit Minutes 24 Notes co-treat with P.T. Occupational Therapy Visit Comments Patient Comments I am not doing anything unless I get some water. OT Pain Assessment Pain When Pain Assessed During Mobility Pain Present Pain Present Pain Reported Location Left Abdomen Scale Used did not rate but reports pain Management Techniques Distraction,Modification of Treatment,Re-positioning M4 OT- IP ADL's Start: 08/02/20 11:58 Freq: Status: Active Protocol: Document 08/02/20 11:58 [facility] (Rec: 08/02/20 12:23 [facility] [id number]) OT [id number] Comments OT Self-Feeding Comments Pt is NPO. OT ADL-Grooming Comments OT Grooming Comments Pt states able to wash his face earlier. OT ADL-Dressing General Eval Lower Body Dressing Ability Maximum Assistance OT ADL-Toileting General Evaluation Toileting Ability Total Assistance Areas Needing Assistance Empty Catheter or Colostomy Comments OT Toileting Comments Molina in place. OT ADL-Bathing Comments OT Bathing Comments Sponge bath more appropriate at this time. M5 OT- IP IADL's Start: 08/02/20 11:58 Freq: Status: Active Protocol: Document 08/02/20 11:58 [facility] (Rec: 08/02/20 12:23 [facility] [id number]) OT-Instrumental Activities of Daily Living Home Safety Awareness Home Safety Comments Pt currently at SNF. Medication Management Medication Management Caregiver Administers Money Management Money Management Caregiver Provides Assistance Meal Preparation Meal Preparation Caregiver Provides Assist Pantograph Transferrer Pantograph Transferrer Caregiver Provides Assist M6 OT- IP Functional Cognition Start: 08/02/20 11:58 Freq: Status: Active Protocol: Document 08/03/20 11:33 CGR (Rec: 08/03/20 11:50 CGR [id number]) Cognitive Factors Limiting Selfcare Function Cognitive Ability Level of Alertness Confusional State Patient Orientation Name,Year Attention Span Ability Unable to Focus,Unable to Sustain Attention Ability to Follow Commands Able to Follow One Step Commands with Increased Time, Able to Follow One Step Commands with Repetition Cognitive Comments Cognitive Assessment Comments Pt appears confused on this date. Pt is able to states that his is in [place] but states that this is a hotel. Pt is upset about not being able to have water and perseverates on water. M7 OT- IP Mobility and Balance Start: 08/02/20 11:58 Freq: Status: Active Protocol: Document 08/03/20 11:33 CGR (Rec: 08/03/20 11:50 CGR [id number]) OT- Bed Mobility Assessment Rolling Type of Rolling Roll to Left Level of Assistance Maximum Assistance,2 Person Assistance,Head of Bed Elevated,Bedrails Supine to Sit Supine to Sit Assist Maximum Assistance,2 Person Assistance,Head of Bed Elevated,Bedrails Sit to Supine Sit to Supine Assist Maximum Assistance,2 Person Assistance,Head of Bed Elevated,Bedrails Scooting Scooting to Edge of Bed Maximum Assistance,2 Person Assistance,Head of Bed Elevated,Bedrails Scooting Up and Down in Bed Total Assistance,2 Person Assistance,Head of Bed Elevated,Bedrails OT- Balance Assessment Sitting Balance and Reactions Static Sitting Balance Ability Fair M8 OT- IP Objective Assessments Start: 08/02/20 11:58 Freq: Status: Active Protocol: Document 08/02/20 11:58 CCC (Rec: 08/02/20 12:23 CCC [id number]) OT Gross Range of Motion Upper Extremity Range of Motion Assessment Bilaterally Impaired OT Strength Upper Extremity Strength Assessment Bilaterally Impaired Comments Strength Comments BUE 3-/5 to 4-/5 form proximal to distal. OT- Coordination Assessment Comments Coordination Comments decreased due to swelling and neuropathy. M9 OT- IP Assessment and Plan Start: 08/02/20 11:58 Freq: Status: Active Protocol: Document 08/03/20 11:33 CGR (Rec: 08/03/20 11:50 CGR [id number]) OT Summary Assessment and Plan Potential Rehabilitation Potential Fair Analytic Complexity at Evaluation High Summary OT Impairments Pain,Range of Motion,Strength, Balance,Coordination, Functional Cognition, Functional Mobility,Self- Feeding,Grooming,Dressing, Toileting,Bathing,Toilet Transfers,Shower Transfers, Activity Tolerance Progress Towards Goals Slow Progress due to Pain,Slow Progress due to Medical Issues,Slow Progress due to Activity Tolerance,Slow Progress due to Cognition Assessment Summary Pt high complexity and needing extensive 2-3 person assist for functional mobility needs at this time for bed mobility. Pt appears more confused and angry about his inability to have water. States I want water and milk shakes and I don't care if I , I am ready to . States that he is in a hotel but is able to state the year and that he is in [place]. Pt declined all other activities and returned to supine. Pt will continue to benefit from therapy services . Goals Grooming Goal Standby Assistance Dressing Goal Moderate Assistance Toileting Goal Moderate Assistance Bathing Goal Moderate Assistance Toilet Transfer Goal Moderate Assistance Shower Transfer Goal Moderate Assistance Days to Meet Goals 30 Frequency of Treatment Frequency Of Treatment Once a Day Treatment Plan OT Treatment Plan ADL Training,Functional Cognition Training,Functional Mobility,Patient/Family Education,Discharge Planning Other Treatment Recommendations and Next Pt to be able to stand for one Treatment Focus minute withi MAX AX 2 to help increase overall activity tolerance in preperation for transfer to BSC. Discharge Recommendations OT Discharge Recommendations SNF Rehab Transportation Needs at Discharge Wheelchair/Cabulance
--- NOTE | 2020-08-03 11:26 | PM.PN.1 ---
Subjective Subjective Date Patient Seen: 08/03/20 Interval history: Patient a 74-year-old male presented with acute peritonitis and septic shock, now resolved. He is postop day 4 repair of perforated duodenal ulcer. He has a small anastomosis leak. He is NPO. He is having significant bilious output in 1 of the MATHEW drains. He was started on octreotide which seems to be helping decrease the drainage. Blood sugars have been persistently quite elevated even though 20 units insulin was added to last night's TPN. Respiratory status has been stable, currently on 2 L NC. He is currently ICU status, need to review admit status with surgery service. Patient had a difficult night, acting confused and slightly agitated. He appears quite disappointed and frustrated at his situation, annoyed with blood draws, etc.. He has significant pain with turning in bed but morphine seems to make him more confused. Patient states his son Ted paiz will be coming by tomorrow. Exam Vital Signs (past 8 hours): - 08/03/20 07:00 Temperature 99.0 F Pulse Rate 108 H Respiratory Rate 20 Blood Pressure 131/71 Pulse Oximetry 92 Fraction of Inspired Oxygen 30 Oxygen Delivery Method Nasal Cannula Oxygen Flow Rate 2 Narrative Exam Narrative: General: Alert male who appears frustrated and depressed Lungs: Clear to auscultation Heart: Regular rhythm Abdomen: MATHEW drain with bile drainage, surgical dressings clean and dry Extremities: No edema Neurological: Oriented to person and place but moderately confused Objective Labs Result Diagrams: 08/03/20 05:15 08/03/20 05:15 Labs: Laboratory Results - last 24 hr 08/03/20 08/03/20 05:15 05:15 WBC 14.9 H RBC 4.05 L Hgb 11.6 L Hct 36.4 L MCV 89.9 MCH 28.6 MCHC 31.8 RDW 16.2 H Plt Count 300 Neut % (Auto) 86.2 H Lymph % (Auto) 3.4 L [place] % (Auto) 10.2 Eos % (Auto) 0.0 L Baso % (Auto) 0.2 Neut # (Auto) 09028 H Lymph # (Auto) 500 L [place] # (Auto) 1500 H Eos # (Auto) 0 Baso # (Auto) 0 Sodium 141 Potassium 3.7 Chloride 106 Carbon Dioxide 34 H BUN 34 H Creatinine 1.10 Estimated GFR > 60.0 BUN/Creatinine Ratio 30.9 H Glucose 306 H Calcium 8.0 L Total Bilirubin 0.3 AST 12 L ALT 13 Alkaline Phosphatase 88 Total Protein 5.1 L Albumin 2.4 L Globulin 2.7 Albumin/Globulin Ratio 0.9 L [facility] Medical History BPH (benign prostatic hyperplasia) Chronic kidney disease DM2 (diabetes mellitus, type 2) HTN (hypertension) Smoker Social History household members: none Smoking Status: Current every day smoker Assessment & Plan Assessment & Plan narrative: 1. Perforated duodenal ulcer, present on admission, active -status post laparotomy repair on 07/30 -no evidence of GI bleed -anastamosis leak managed by surgery, patient was started on octreotide, monitoring MATHEW output, and he may need to go back to OR -continue TPN for nutrition, increase to goal rate, intra lipids Q Thursday, Thursday and Thursday -manage hyperglycemia with insulin in TPN, see below -continue morphine for pain control although does tend to make him confused -per surgery, okay to mobilize with PT, remove Arriaga 2. Sepsis with septic shock due to acute peritonitis, present on admission, improved -secondary to intra-abdominal infection from perforated ulcer -hemodynamics stable, WBC and procalcitonin all trending in good direction -continue Zosyn and Flagyl 3. Acute respiratory failure with hypoxia, present on admission, active, improving -secondary to sepsis, also exacerbated by volume resuscitation -supplemental O2 as needed, currently not requiring -monitor fluid status and provide IV Lasix as needed 4. Acute kidney injury, likely secondary to ATN, present on admission, resolved -baseline creatinine 1.5, was 2.22 on admit 5. Type 2 diabetes -at baseline well controlled, A1c 6.2 -initially hypoglycemic now severely hyperglycemic since initiation of TPN -increased to 30 units insulin in TPN starting evening / -May use IV regular insulin as needed for severe hyperglycemia -continue subcu NovoLog medium dose protocol as needed, keep glucose 140-180 range -holding p.o. meds while patient NPO 6. Lung cavitary lesion and pleural fluid -worked up at [facility], recommended for repeat CT in 3-6 months per pulmonology. TB highly unlikely, most likely malignancy or bleb. 7. BPH -arriaga placed in the ER, continue finasteride when able. 8. Cigarette dependency -patient recently stop smoking 9. Acute metabolic encephalopathy -patient with moderate degrees of confusion and agitation related to postop stress, ICU environment, pain and morphine as well as degree of situational depression -continue reassuring and reorienting -consider palliative care consult Code: DNR but okay with intubation after surgery per discussion with patient. Surrogate decision maker is the patient's Son. DVT prophylaxis: SCDs, INR is 1.4 without anticoagulation Quality VTE Deep Vein Thrombosis/Pulmonary Embolism Present on Admission: No
--- NOTE | 2020-08-03 12:46 | CM.DPC ---
DCP: continued: Case discussed in Team Rounds and with TPN now in place to help seal the small leak which showed up on delayed images from the UGI SBFT. Intent is to reduce drain output and allow the leak time to seal on its own. Dr. Avery and Dr. Cueva are continuing co-management of this case. Cloth Mender Annemarie did request after Rounds that palliative specialist OMAR Meredith be alert to the possibility of an need for palliative consultation as this may arise over the weekend and she would like her to be prepared if this should occur. She is alerted to this via [employer] email with cc to CM dept. At this time the providers are not looking to this option but this could possibly change..... [facility] Care/Rehab does continue to anticipate pt's return with a new [facility] snf needed when pt is nearer to d/c.
--- NOTE | 2020-08-03 12:54 | DIET.PN ---
Dietary Progress Note RD f/u for 74y M requiring emergency repair of perforated duodenal ulcer referred to nutrition for TPN reccs. Pt tolerating TPN at 62mL/h, however pts BG has been elevated at 304. Hospitalist managing pts high BG c ssi and 30U insulin added to TPN for tonight. Refeeding labs WNL. Pts renal fxn improved indicating pt appropriate for increased TPN goal once BG more tightly regulated. HT: 182.8cm WT: 88.7kg BMI: 26.5 Labs:WBC 14.9 H, hgb 11.6 L, Cr 1.1 WNL, eGFR >60 WNL, A1c 6.2, BG 304 H Nutrition Diagnosis: Resolving inadequate protein energy intake r/t prolonged NPO status aeb pt had poor intake several days prior to hospitalization and has been NPO x3d with forecasted prolonged NPO needed for gut rest secondary to large perforated duodenal ulcer repair. Interventions: 1. Recalculated TPN goal rate secondary to improved renal fxn can be started Thursday if pts BG in good control. Continuous 2L Clinimix E 07/19 running at 82mL/h with 500mL IVFE M, W, F as tolerated providing 100% kcal needs and 100% PRO needs. 2. Daily weights please Diet Order: NPO requesting TPN nutrition support EER: 1,780 kcal (20kcal/kg per overweight), 98g PRO (1.1g/kg per post surgical healing) Monitoring/Evaluations: following daily, TPN tolerance, BGs, associated labs.
--- NOTE | 2020-08-03 16:35 | PM.PNPO.1 ---
Subjective Subjective Date Patient Seen: 08/03/20 Time Patient Seen: 16:35 Interval history: The patient is a gentleman who is under treatment for perforated ulcer. He had primary closure and an Omental patch placed. He has developed a leak at the perforation site despite having an airtight closure at the completion of the operation. We are attempting to treat him conservatively. Unfortunately he is not being completely cooperative. He pulled his NG tube in he is not interested in having it replaced. He is quite adamant at about that. Additionally, he insists that he has to have ice water to drink. He can not possibly survive without it. He would rather than not have it per him. I explained to him that he does have a hole in his leaking everything he drinks similar trying to get it to close but will not do so if he keeps doing when he is doing but he will not here to it. The left a message edge on his sounds answering machine and attempted to reach his daughter but I was not certain that the phone number that I had was accurate based upon the message. It may be her 's phone but I am not certain. Exam Vital Signs (past 8 hours): - 08/03/20 11:00 08/03/20 15:00 Temperature 97.4 F L 98.4 F Pulse Rate 103 H 102 H Respiratory Rate 17 22 Blood Pressure 157/74 H 151/87 H Pulse Oximetry 96 94 Fraction of Inspired Oxygen 30 Oxygen Delivery Method Nasal Cannula Oxygen Flow Rate 2 Narrative Exam Narrative: Patient was sitting at the bedside. His lungs were actually pretty clear. Abdomen is soft. He continues to drain fluid in large volume from his drainage site. He is not strong enough to walk according to the nurses. Dressings are intact. Objective Labs Result Diagrams: 08/03/20 05:15 08/03/20 05:15 Labs: Laboratory Results - last 24 hr 08/03/20 08/03/20 05:15 05:15 WBC 14.9 H RBC 4.05 L Hgb 11.6 L Hct 36.4 L MCV 89.9 MCH 28.6 MCHC 31.8 RDW 16.2 H Plt Count 300 Neut % (Auto) 86.2 H Lymph % (Auto) 3.4 L [place] % (Auto) 10.2 Eos % (Auto) 0.0 L Baso % (Auto) 0.2 Neut # (Auto) 04392 H Lymph # (Auto) 500 L [place] # (Auto) 1500 H Eos # (Auto) 0 Baso # (Auto) 0 Sodium 141 Potassium 3.7 Chloride 106 Carbon Dioxide 34 H BUN 34 H Creatinine 1.10 Estimated GFR > 60.0 BUN/Creatinine Ratio 30.9 H Glucose 306 H Calcium 8.0 L Total Bilirubin 0.3 AST 12 L ALT 13 Alkaline Phosphatase 88 Total Protein 5.1 L Albumin 2.4 L Globulin 2.7 Albumin/Globulin Ratio 0.9 L PFSH Medical History BPH (benign prostatic hyperplasia) Chronic kidney disease DM2 (diabetes mellitus, type 2) HTN (hypertension) Smoker Social History household members: none Smoking Status: Current every day smoker Assessment & Plan Post-op Postoperative Procedures: Procedures Operation Date: 07/30/20 16:00 Actual Procedures Side Surgeon p Laparoscopy, Diagnostic; converted to open Joel patch of duodenum with EGD Flor Cueva MD s Esophagogastroduodenoscopy Domenico Wheeler MD Postoperative status narrative: Patient at significant risk of dying due to the decisions he is making. I have left a message to that effect on his son's phone. TPN is being continued with an increased amount of insulin in it. We will see if that helps improve his glucose level. If not we will have to adjust his sliding scale dosage. I told the patient specifically I did not want him using ice or drinking water. Though he may wish to hasten his demise I do not wish to be part of that decision making. Postoperative plan narrative: Given the high volume of intake and drainage output I have no idea whether the octreotide is helping or not. All I can do right now is wait and see if he will come to his senses. Quality VTE Deep Vein Thrombosis/Pulmonary Embolism Present on Admission: No
[2020-08-03] MEDS: DEXT IV (18:05)
[2020-08-03] MEDS: FAT EMULSIONS 50 GM/250 ML EMULSION IV (18:05)
[2020-08-03] MEDS: CALCIUM IV (18:05)
[2020-08-03] MEDS: POTASSIUM CHLORIDE IV (18:05)
[2020-08-03] MEDS: [UNRECOGNIZED DRUG - OTHER] IV (18:05)
[2020-08-03] MEDS: LYTES IV (18:05)
[2020-08-04] VITALS (8 sets, daily range): BP systolic 153–192; BP diastolic 74–90; PULSE 89–110; RESP 19–27; TEMP 36.1–37; O2SAT 89–98
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
[2020-08-04] MEDS: INSULIN LISPRO 100 UNIT/ML 3ML VIAL SUBCUT ×4 (00:59→18:54)
[2020-08-04] MEDS: metroNIDAZOLE 500 MG/100 ML PIGGYBACK 100 MG IV ×4 (02:55→20:34)
[2020-08-04] MEDS: MORPHINE 2 MG/ML INJ IV ×3 (03:20→16:41)
[2020-08-04] MEDS: PIPERACILLIN/TAZO 3.375 GM in SODIUM CHLORIDE 0.9% 100 ML 25 ML IV ×3 (05:05→20:37)
[2020-08-04 05:41] LABS: Alanine Aminotransferase 11 IU/L (<50); Albumin 2.3 g/dL (3.5-5.0); Albumin Globulin Ratio 0.9 (1.0-2.8); Alkaline Phosphatase 85 U/L (38-126); Aspartate Aminotransferase 13 IU/L (17-59); BUN Creatinine Ratio 29.6 (6-22); Bilirubin Total 0.1 mg/dL (0.2-1.3); Blood Urea Nitrogen 29 mg/dL (9-20); Calcium 7.9 mg/dL (8.4-10.2); Carbon Dioxide 34 mmol/L (22-32); Chloride 106 mmol/L (98-107); Estimated Glomerular Filt Rate > 60.0 mL/min (>60); Globulin 2.7 g/dL (1.7-4.1); Glucose 257 mg/dL (80-110); HEMOLYSIS < 15 (0-50); Magnesium 1.6 mg/dL (1.6-2.3); Potassium 3.6 mmol/L (3.4-5.1); Sodium 141 mmol/L (137-145)
[2020-08-04 05:42] LABS: Add Manual Diff / Slide Review NO; Basophils Absolute Auto 0 /uL (0-100); Basophils Percent Auto 0.2 % (0-2); Eosinophils Absolute Auto 100 /uL (0-450); Eosinophils Percent Auto 0.4 % (2-4); Hematocrit 36.2 % (41-53); Hemoglobin 11.4 g/dL (13.5-17.5); Lymphocytes Absolute Auto 800 /uL (1100-4500); Lymphocytes Percent Auto 4.6 % (25-40); Mean Corpuscular HGB Conc 31.4 % (30-36); Mean Corpuscular Hemoglobin 28.1 PG (26-34); Mean Corpuscular Volume 89.6 fL (80-100); Monocytes Absolute Auto 2000 /uL (0-900); Monocytes Percent Auto 11.8 % (3-14); Neutrophils Absolute Auto 14000 /uL (1500-7000); Platelet Count 296 X10^3/uL (150-400); Red Blood Cell Count 4.04 X10^6/uL (4.5-5.9); Red Cell Distribution Width 16.2 % (11.6-14.8); White Blood Cell Count 16.8 X10^3/uL (4.5-11.0)
[2020-08-04] MEDS: SODIUM CHLORIDE 0.9% 500 ML 30 ML IV (06:25)
[2020-08-04 07:19] LABS: Procalcitonin 0.92 ng/mL (<0.5)
[2020-08-04] MEDS: PANTOPRAZOLE 40 MG VIAL IV ×2 (08:31→20:35)
[2020-08-04] MEDS: OCTREOTIDE 100 MCG/ML VIAL SUBCUT ×3 (08:31→20:36)
[2020-08-04] MEDS: HEPARIN 5,000 UNIT/ML VIAL 5000 UNIT SUBCUT ×2 (08:31→22:03)
[2020-08-04] MEDS: levoFLOXacin 750 MG/150 ML PIGGYBACK 100 MG IV (10:09)
--- NOTE | 2020-08-04 10:25 | P.PN_ITS ---
Subjective Subjective Date Patient Seen: 08/04/20 Time Patient Seen: 14:31 Interval history: Pt continues to refuse NGT or any further procedures. His son is present this afternoon for discussion of his father's care. Exam Vital Signs (past 8 hours): - 08/04/20 03:15 08/04/20 08:00 08/04/20 08:30 Temperature 97.9 F 98.2 F Pulse Rate 110 H 104 H Respiratory Rate 27 H 27 H Blood Pressure 187/89 H 192/90 H Pulse Oximetry 90 L 95 93 08/04/20 09:00 Temperature Pulse Rate 99 H Respiratory Rate Blood Pressure 165/80 H Pulse Oximetry Fraction of Inspired Oxygen 30 Oxygen Delivery Method High Flow Nasal Cannula Oxygen Flow Rate 3 Narrative Exam Narrative: GENERAL: Alert, mildly agitated. CARDIOVASCULAR: Tachycardic in the 90s to low 100s, regular rhythm. trace pedal edema. RESPIRATORY: non tachypneic, breathing comfortably on NC, coarse breath sounds GASTROINTESTINAL: Abdomen soft, nondistended, dressings intact and clean, incision is clean and intact without any signs of cellulitis. Right MATHEW drain is murky, serous, and bile tinged; left side drain is serosanguineous MUSCULOSKELETAL: Equal tone and mass bilaterally. SKIN: Warm, dry, soft, appropriate color for ethnicity. No other lesions, rashes, or wounds. Objective Labs Result Diagrams: 08/04/20 05:15 08/04/20 05:15 Labs: Laboratory Results - last 24 hr 08/04/20 08/04/20 08/04/20 05:15 05:15 05:15 WBC 16.8 H RBC 4.04 L Hgb 11.4 L Hct 36.2 L MCV 89.6 MCH 28.1 MCHC 31.4 RDW 16.2 H Plt Count 296 Neut % (Auto) 83.0 H Lymph % (Auto) 4.6 L [place] % (Auto) 11.8 Eos % (Auto) 0.4 L Baso % (Auto) 0.2 Neut # (Auto) 43725 H Lymph # (Auto) 800 L [place] # (Auto) 2000 H Eos # (Auto) 100 Baso # (Auto) 0 Sodium 141 Potassium 3.6 Chloride 106 Carbon Dioxide 34 H BUN 29 H Creatinine 0.98 Estimated GFR > 60.0 BUN/Creatinine Ratio 29.6 H Glucose 257 H Calcium 7.9 L Magnesium 1.6 Total Bilirubin 0.1 L AST 13 L ALT 11 Alkaline Phosphatase 85 Total Protein 5.0 L Albumin 2.3 L Globulin 2.7 Albumin/Globulin Ratio 0.9 L Procalcitonin 0.92 H PFSH Medical History BPH (benign prostatic hyperplasia) Chronic kidney disease DM2 (diabetes mellitus, type 2) HTN (hypertension) Smoker Social History household members: none Smoking Status: Current every day smoker Assessment & Plan Assessment and plan (1) ALF (acute kidney injury): Status: Acute (2) Sepsis associated hypotension: Status: Acute (3) Peritonitis (acute) generalized: Status: Acute (4) Perforated duodenal ulcer: Status: Acute (5) Smoker: Status: Acute (6) DM2 (diabetes mellitus, type 2): Qualifiers: 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 He has a small leak at the site of the repair, as proven on Gastrografin upper GI from three days ago. With increased octreotide, the drain output has become less bilious. However, the patient pulled out his NGT and has refused to have it replaced, and he has been drinking a bit of water. His drain output volume is fairly steady in spite of the added volume secondary to the lack of NGT suction and the increased oral intake. Given that, I feel that the leak is improving, but certainly not sealed. I had a long discussion with the patient and his son today. I explained that th is type of perforation is often repaired with a Joel patch, but a small percentage of them will leak after the repair. Usually the repair will seal, with conservative management such as what we are doing, however having the NG tube in and minimizing the oral intake would be part of appropriate conservative management. We discussed surgical options for repairing the leak, as well as the possibility of transferring the patient to have a puddler helper place a stent across the leak. The patient and his son are in agreement that no further procedures will be done, and the patient will not accept an NG tube. They would like him to be able to go home, and to be made comfortable at home. I explained that the leak that he has is not life-threatening, and he is not really appropriate for hospice care. I explained that I expect he will still likely seal the leak, and will ultimately recover although it will take longer without the NG tube and without any of the procedural interventions that we discussed. At this point I recommended that he at least continue with the TPN and keep the drain in place, and try to minimize his oral intake so that this can ultimately heal and he can go back to eating and having a more normal life. If he goes home and begins to eat solid food, or takes in any significant amount of oral intake he will likely increase the leak, disrupt the repair, and increase his pain, likely resulting in sepsis. I strongly recommended to the patient that he maintain NPO status, continue daily TPN for nutrition so that he can heal the leak, and continue octreotide to reduce his secretions so that he can heal the leak. I explained that it may take 4-6 weeks for the leak to seal. However, getting the leak to seal is the best chance for recovery and getting back to normal life. I discussed this with the patient and his son, and with the care coordinators, who will work on dispo planning for him. Recommendations: Keep MATHEW drains emptied, record output, and recharge Consider removing Molina, and having patient out of bed to ambulate as much as possible DVT prophylaxis with SCDs, and heparin TPN PT, ambulate Strict NPO dispo planning COVID-19 COVID-19 status: Negative Result date/Date tested (Pos, Neg/Pending): 07/30/20 Time Spent With Patient Time with patient: 25 - 35 minutes Quality VTE Deep Vein Thrombosis/Pulmonary Embolism Present on Admission: No
--- NOTE | 2020-08-04 11:06 | PT-IP ANOTE ---
Pt refused working with therapy, told pt we would check back with him tomorrow and pt stated he won't be here tomorrow.
--- NOTE | 2020-08-04 11:22 | OT.IPNOTE ---
Attempted to do OT treatment with pt, pt refused and not wanting any therapy at this time.
--- NOTE | 2020-08-04 14:48 | CM.DPC ---
Addendum entered by Marilea Guardado R.N. 08/04/20 15:45: Called [facility], and spoke to a guest relations representative. She mentioned that she used to work in the care management department, and stated that they do take patients with TPN. She gave a fax number of: [phone]. She stated that their case management team is not there on week-ends, but can review on Thursday. Went ahead and faxed over face sheet, H&P, progress notes. So far, have faxed [facility], and [email or web address]. Have not yet heard back from [facility]. Addendum entered by Mariela Guardado R.N. 08/04/20 15:10: Calling [facility], which is [facility]. Their phone number is: [phone], Was attempting to speak to a guest relations representative to discuss carve out for TPN, or if this patient has been assigned a transplant case manager. Left them a message, asking questions if patient has a transplant case manager assigned, and the process for TPN. Original Note: DCP Cont: Met briefly with surgeon, Dr. Landrum, who had spoken to patient and son, Ted Rockwell. Stated that she anticipates patient going home instead of back to a [facility] facility with TPN. She stated that family was wanting to take him home. She also indicated that there is an IM medication that is expensive, that patient will need to be on three times a day. She added, he probably won't qualify for hospice since he is getting the feedings. Asked her if PEG tube could be placed instead of TPN, and she mentioned, the patient does not want any invasive procedures. Let her know that this [place] Housing Specialist would need to contact [facility] to find out if this is doable in the home. Just found out that patient does not have family available to care for patient 24 hours a day. In patient's condition, he will need 24 hour caregivers. Let her know that finding a place that accepts TPN will be a challenge. Let her know that this [place] special events planner will discuss with son. Met with son, Ted Rockwell. He was under the impression that his insurance would cover caregivers in the home. Let him know that insurance does not cover home caregivers. Son indicated, he can't take his dad home for a month, due to his work, unless he asks for bereavement leave. Patient does not want to go back to [facility], but they do not accept TPN. Let patient and son know that this [place] special events planner can attempt to locate a facility that accepts TPN carve out, but will be challenging. Palliative care conference is scheduled for Thursday, and further issues may need to be discussed. Patient isweak, he is part of the decision process, but unrealistic, he thinks he can go home and take care of himself. Son is hoping to involve his in the care conference. Called [facility], they do not accept carve out. Left a message with Obdulia Kwong. [facility] does not accept, [facility] does not accept. Onesimo at [facility] was going to ask [facility], but doubtful that they will accept. Called Adelaida at [facility], in admissions, and faxed over 79 pages to them, for he was in ICU for a couple of days, so could qualify. P: DCP to continue to follow. Will revisit tomorrow if patient would be willing for PEG tube. This can also be discussed at care conference on Thursday. Mariela Guardado RN/Regional Director Of Admissions
--- NOTE | 2020-08-04 18:35 | P.PN_ITS ---
Subjective Subjective Date Patient Seen: 08/04/20 Time Patient Seen: 07:35 Interval history: He is refusing to let me examine him. He says that we have been injecting him with heroin and poison. Later in day he is noted to ask nurse to stop turning him. He is ok with certain interventions, but has been refusing NG tube, refusing to be NPO, refusing insulin. Exam Vital Signs (past 8 hours): - 08/04/20 10:37 08/04/20 12:00 08/04/20 16:05 Temperature 98.6 F 97 F L Pulse Rate 98 H 89 Respiratory Rate 22 19 Blood Pressure 153/79 H 163/76 H Pulse Oximetry 93 98 90 L Fraction of Inspired Oxygen 30 Oxygen Delivery Method Room Air Oxygen Flow Rate 3 Narrative Exam Narrative: Exam limited as patient refused full examination General: Alert male who appears frustrated and depressed Abdomen: MATHEW drain with bile drainage, Neurological: Oriented to person and place but moderately confused Objective Labs Result Diagrams: 08/04/20 05:15 08/04/20 05:15 Labs: Laboratory Results - last 24 hr 08/04/20 08/04/20 08/04/20 05:15 05:15 05:15 WBC 16.8 H RBC 4.04 L Hgb 11.4 L Hct 36.2 L MCV 89.6 MCH 28.1 MCHC 31.4 RDW 16.2 H Plt Count 296 Neut % (Auto) 83.0 H Lymph % (Auto) 4.6 L [place] % (Auto) 11.8 Eos % (Auto) 0.4 L Baso % (Auto) 0.2 Neut # (Auto) 61963 H Lymph # (Auto) 800 L [place] # (Auto) 2000 H Eos # (Auto) 100 Baso # (Auto) 0 Sodium 141 Potassium 3.6 Chloride 106 Carbon Dioxide 34 H BUN 29 H Creatinine 0.98 Estimated GFR > 60.0 BUN/Creatinine Ratio 29.6 H Glucose 257 H Calcium 7.9 L Magnesium 1.6 Total Bilirubin 0.1 L AST 13 L ALT 11 Alkaline Phosphatase 85 Total Protein 5.0 L Albumin 2.3 L Globulin 2.7 Albumin/Globulin Ratio 0.9 L Procalcitonin 0.92 H PFSH Medical History BPH (benign prostatic hyperplasia) Chronic kidney disease DM2 (diabetes mellitus, type 2) HTN (hypertension) Smoker Social History household members: none Smoking Status: Current every day smoker Assessment & Plan Assessment & Plan narrative: Mr. Perez came in with an acute perforated ulcer s/p laparotomy with repair on 07/30 1. Perforated duodenal ulcer, present on admission, active -status post laparotomy repair on 07/30 -no evidence of GI bleed -anastamosis leak managed by surgery, on octreotide, monitoring MATHEW output -per surgery note GOC discussion had, and patient does not want to return to the OR -continue TPN for nutrition, increase to goal rate, intra lipids Q Thursday, Thursday and Thursday -manage hyperglycemia with insulin in TPN, see below -continue morphine for pain control although does tend to make him confused -per surgery, okay to mobilize with PT, remove Arriaga 2. Sepsis with septic shock due to acute peritonitis, present on admission, improved -secondary to intra-abdominal infection from perforated ulcer -hemodynamics stable, procalcitonin improving -WBC slightly increasing -continue Zosyn and Flagyl 3. Acute respiratory failure with hypoxia, present on admission, active, improving -secondary to sepsis, also exacerbated by volume resuscitation -supplemental O2 as needed, currently not requiring -monitor fluid status and provide IV Lasix as needed -had stenotrophomonas growing in sputum, so will add levofloxacin to antibiotics 4. Acute kidney injury, likely secondary to ATN, present on admission, resolved -baseline creatinine 1.5, was 2.22 on admit, now improved to 0.98 5. Type 2 diabetes -at baseline well controlled, A1c 6.2 -initially hypoglycemic now severely hyperglycemic since initiation of TPN -increased to 40 units insulin in TPN starting evening 08/04 -May use IV regular insulin as needed for severe hyperglycemia -continue subcu NovoLog medium dose protocol as needed, keep glucose 140-180 range, which patient is intermittently refusing -holding p.o. meds while patient NPO 6. Lung cavitary lesion and pleural fluid -worked up at [facility], recommended for repeat CT in 3-6 months per pulmonology. TB highly unlikely, most likely malignancy or bleb. 7. BPH -arriaga placed in the ER, continue finasteride when able. 8. Cigarette dependency -patient recently stop smoking 9. Acute metabolic encephalopathy -patient with moderate degrees of confusion and agitation related to postop stress, ICU environment, pain, morphine, acute illness, as well as degree of situational depression -continue reassuring and reorienting -consider palliative care consult IVF: TPN DVT ppx: heparin DIET: NPO Code: DNR, proxy is maria eugenia Monk VTE Deep Vein Thrombosis/Pulmonary Embolism Present on Admission: No
[2020-08-04] MEDS: [UNRECOGNIZED DRUG - OTHER] IV (18:47)
[2020-08-04] MEDS: LYTES IV (18:47)
[2020-08-04] MEDS: DEXT IV (18:47)
[2020-08-04] MEDS: CALCIUM IV (18:47)
[2020-08-04] MEDS: POTASSIUM CHLORIDE IV (18:47)
--- NOTE | 2020-08-04 19:36 | PC.NURSE ---
Addendum entered by Leila Tanner R.N. 08/04/20 19:38: Titrating O2 3-5L as needed for O2 sats. Original Note: Refusing most care, premedicated prior to turning, which Pt was slightly more tolerant for. Swatting at staff during care. Just let me Discussed with Dr Joseph , who will work with Dr Cueva and son in terms of a POC, TPN is infusing per MAR. SS coverage at 1800.
[2020-08-05] VITALS: BP 153/66; PULSE 102; RESP 25; TEMP 36.4; O2SAT 96
[2020-08-05] MEDS: INSULIN LISPRO 100 UNIT/ML 3ML VIAL SUBCUT ×3 (00:39→12:08)
[2020-08-05] MEDS: metroNIDAZOLE 500 MG/100 ML PIGGYBACK 100 MG IV ×2 (02:34→08:48)
[2020-08-05 03:24] VITALS: BP 153/70; PULSE 103; RESP 26; TEMP 36.6; O2SAT 90
[2020-08-05] MEDS: PIPERACILLIN/TAZO 3.375 GM in SODIUM CHLORIDE 0.9% 100 ML 25 ML IV (04:14)
[2020-08-05 04:51] LABS: Hematocrit 36.2 % (41-53); Hemoglobin 11.5 g/dL (13.5-17.5); Mean Corpuscular HGB Conc 31.9 % (30-36); Mean Corpuscular Hemoglobin 28.8 PG (26-34); Mean Corpuscular Volume 90.3 fL (80-100); Platelet Count 308 X10^3/uL (150-400); Red Blood Cell Count 4.01 X10^6/uL (4.5-5.9); Red Cell Distribution Width 16.5 % (11.6-14.8); White Blood Cell Count 19.7 X10^3/uL (4.5-11.0)
[2020-08-05 04:52] LABS: Add Manual Diff / Slide Review YES
[2020-08-05 04:57] LABS: Alanine Aminotransferase 8 IU/L (<50); Albumin 2.2 g/dL (3.5-5.0); Albumin Globulin Ratio 0.8 (1.0-2.8); Alkaline Phosphatase 89 U/L (38-126); Aspartate Aminotransferase 12 IU/L (17-59); BUN Creatinine Ratio 31.1 (6-22); Bilirubin Total 0.1 mg/dL (0.2-1.3); Blood Urea Nitrogen 32 mg/dL (9-20); Carbon Dioxide 36 mmol/L (22-32); Chloride 106 mmol/L (98-107); Estimated Glomerular Filt Rate > 60.0 mL/min (>60); Globulin 2.7 g/dL (1.7-4.1); Glucose 246 mg/dL (80-110); HEMOLYSIS < 15 (0-50); Potassium 4.4 mmol/L (3.4-5.1); Sodium 142 mmol/L (137-145); Total Protein 4.9 g/dL (6.3-8.2)
[2020-08-05] MEDS: HEPARIN 5,000 UNIT/ML VIAL 5000 UNIT SUBCUT (06:02)
--- NOTE | 2020-08-05 06:08 | DI.RAD.S_ITS ---
PROCEDURE: XR CHEST 1V INDICATIONS: increasing WBC, rule out pulm source TECHNIQUE: One view of the chest was acquired. COMPARISON: [facility], CT, CT ANGIO CHEST PE PROTOCOL, 07/30/2020, 12:53. [facility], CT, CT ABDOMEN PELVIS W CON, 07/30/2020, 12:53. [facility], RF, FL UPPER GI SMALL BOWEL, 08/01/2020, 9:57. [facility], CR, XR CHEST 1V, 07/31/2020, 16:22. [facility], CR, XR CHEST 1V, 07/30/2020, 12:25. FINDINGS: Surgical changes and devices: None. Lungs and pleura: Lungs are abnormal, with what appears to be bilateral lung base atelectasis, right greater than left, and there is a small amount of subdiaphragmatic free air in this patient with prior surgical intervention in the recent past.. No pleural effusions or pneumothorax. Mediastinum: Mediastinal contours appear normal. Heart size is normal. Bones and chest wall: No suspicious bony lesions. Overlying soft tissues appear unremarkable. IMPRESSION: Lung base atelectasis, right greater than left, and superimposed pneumonia at each lung base could be present. Subdiaphragmatic free air on the right is noted, relatively small in quantity. Follow-up CT scanning may be warranted if abscess is suspected within the abdomen. Also, follow-up duplication of the plain film imaging may be warranted to ensure that increase in subdiaphragmatic free air does develop. Dictated by: Anthony Ellison M.D. on 08/05/2020 at 7:34 Approved by: Anthony Ellison M.D. on 08/05/2020 at 7:38
--- NOTE | 2020-08-05 06:31 | PC.NURSE ---
Shift Note-Patient has been sleeping and lethargic from 1999 to 07 this am, rouses to loud voice, but does not participate in care, arms are weak, keeps legs stiff and crossed. Has moaned and complains of abdominal pain, says just get me out of here and I'm hot skin is hot to touch at times, has been afebrile, cooling him off with a fan and cold clothes, he has refused IV morphine, FLACC has been 2 most of night, 6-7 during movement. 295ml bile output from Rt MATHEW, 0 from Lt.
[2020-08-05 07:03] LABS: Neutrophils Absolute Manual 16154 /uL (3000-5900); Total Cells Counted 100
[2020-08-05 07:04] LABS: Platelet Estimate Adequate on smear; RBC Morphology Normal Morphology
[2020-08-05 08:00] VITALS: BP 183/92; PULSE 96; RESP 24; TEMP 36.1; O2SAT 95
[2020-08-05 08:28] VITALS: PULSE 98; RESP 22; O2SAT 95
[2020-08-05] MEDS: levoFLOXacin 750 MG/150 ML PIGGYBACK 100 MG IV (08:46)
[2020-08-05] MEDS: OCTREOTIDE 100 MCG/ML VIAL SUBCUT (08:48)
[2020-08-05] MEDS: PANTOPRAZOLE 40 MG VIAL IV (08:49)
--- NOTE | 2020-08-05 09:08 | P.PN_ITS ---
Subjective Subjective Date Patient Seen: 08/05/20 Time Patient Seen: 09:08 Interval history: No acute events overnight. Pt continues to decline any procedures or interventions. Per discussion with his son yesterday, the patient and his son are in agreement about this. For now they agreed to allow TPN, Octreotide, antibiotics, and drain management. Care coordinators working on dispo. Exam Vital Signs (past 8 hours): - 08/05/20 03:24 08/05/20 08:00 08/05/20 08:28 Temperature 97.8 F 97.0 F L Pulse Rate 103 H 96 H 98 H Respiratory Rate 26 H 24 22 Blood Pressure 153/70 H 183/92 H Pulse Oximetry 90 L 95 95 Fraction of Inspired Oxygen 30 Oxygen Delivery Method Nasal Cannula Oxygen Flow Rate 2 Narrative Exam Narrative: GENERAL: Eyes closed, verbalizes that he is cold and would like a blanket CARDIOVASCULAR: Tachycardic in the 90s to low 100s, regular rhythm. trace pedal edema. RESPIRATORY: non tachypneic, breathing comfortably on NC, coarse breath sounds, wet non productive cough GASTROINTESTINAL: Abdomen soft, nondistended, dressings intact and clean, incision is clean and intact without any signs of cellulitis. Right MATHEW drain is murky, serous, and faintly bile tinged MUSCULOSKELETAL: Equal tone and mass bilaterally. SKIN: Warm, dry, soft, appropriate color for ethnicity Objective Imaging Chest x-ray: Radiologist's impression: [address] [id number] ReportSigned Patient: Ted Perez CMR#: [id number]: 7Acct:[id number]/Sex: 74 / MDate of Service: 08/05/20Loc: [id number] Number: [id number] Procedure: XR chest 1V Ordering Provider: Flor Cueva MD PROCEDURE: XR CHEST 1V INDICATIONS: increasing WBC, rule out pulm source TECHNIQUE: One view of the chest was acquired. COMPARISON: [facility], CT, CT ANGIO CHEST PE PROTOCOL, 07/30/2020, 12:53. [facility], CT, CT ABDOMEN PELVIS W CON, 07/30/2020, 12:53. [facility], RF, FL UPPER GI SMALL BOWEL, 08/01/2020, 9:57. [facility], CR, XR CHEST 1V, 07/31/2020, 16:22. [facility], CR, XR CHEST 1V, 07/30/2020, 12:25. FINDINGS: Surgical changes and devices: None. Lungs and pleura: Lungs are abnormal, with what appears to be bilateral lung base atelectasis, right greater than left, and there is a small amount of subdiaphragmatic free air in this patient with prior surgical intervention in the recent past.. No pleural effusions or pneumothorax. Mediastinum: Mediastinal contours appear normal. Heart size is normal. Bones and chest wall: No suspicious bony lesions. Overlying soft tissues appear unremarkable. IMPRESSION: Lung base atelectasis, right greater than left, and superimposed pneumonia at each lung base could be present. Subdiaphragmatic free air on the right is noted, relatively small in quantity. Follow-up CT scanning may be warranted if abscess is suspected within the abdomen. Also, follow-up duplication of the plain film imaging may be warranted to ensure that increase in subdiaphragmatic free air does develop. Dictated by: Anthony Ellison M.D. on 08/05/2020 at 7:34 Labs Result Diagrams: 08/05/20 04:20 08/05/20 04:20 Labs: Laboratory Results - last 24 hr 08/05/20 08/05/20 04:20 04:20 WBC 19.7 H RBC 4.01 L Hgb 11.5 L Hct 36.2 L MCV 90.3 MCH 28.8 MCHC 31.9 RDW 16.5 H Plt Count 308 Neut % (Auto) Not Reportable Lymph % (Auto) Not Reportable Dade % (Auto) Not Reportable Eos % (Auto) Not Reportable Baso % (Auto) Not Reportable Lymph # (Auto) Not Reportable Dade # (Auto) Not Reportable Baso # (Auto) Not Reportable Total Counted 100 Seg Neutrophils % 78.0 H Band Neutrophils % 4.0 Lymphocytes % (Manual) 6.0 L Atypical Lymphs % 1.0 H Monocytes % (Manual) 10.0 Eosinophils % (Manual) 1.0 L Neutrophils # (Manual) 40323 H Platelet Estimate Adequate on smear RBC Morphology Normal morphology Sodium 142 Potassium 4.4 Chloride 106 Carbon Dioxide 36 H BUN 32 H Creatinine 1.03 Estimated GFR > 60.0 BUN/Creatinine Ratio 31.1 H Glucose 246 H Calcium 8.0 L Total Bilirubin 0.1 L AST 12 L ALT 8 Alkaline Phosphatase 89 Total Protein 4.9 L Albumin 2.2 L Globulin 2.7 Albumin/Globulin Ratio 0.8 L PFSH Medical History BPH (benign prostatic hyperplasia) Chronic kidney disease DM2 (diabetes mellitus, type 2) HTN (hypertension) Smoker Social History household members: none Smoking Status: Current every day smoker Assessment & Plan Assessment and plan (1) ALF (acute kidney injury): Status: Acute (2) Sepsis associated hypotension: Status: Acute (3) Peritonitis (acute) generalized: Status: Acute (4) Perforated duodenal ulcer: Status: Acute (5) Smoker: Status: Acute (6) DM2 (diabetes mellitus, type 2): Qualifiers: Diabetes mellitus skilled nursing insulin use: unspecified 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 He has a small leak at the site of the repair, as proven on Gastrografin upper GI from two days post op. With increased octreotide, the drain output has become less bilious. However, the patient pulled out his NGT and has refused to have it replaced, and he has been drinking a bit of water. His drain output volume is fairly steady, which likely represents overall improvement on balance with the added volume secondary to the lack of NGT suction and the increased oral intake. Given that, it appears that the leak is improving, but certainly not sealed. I had a long discussion with the patient and his son on 08/04. I explained that this type of perforation is often repaired with a Joel patch, as was done in this case, but a small percentage of them will leak after the repair. Usually t he leak will seal without re-operation, using conservative management such as what we are doing, however having the NG tube in and minimizing the oral intake would be part of appropriate conservative management. So the time for the leak to seal, and the possibility that it will not ultimately seal are increased because we do not have the NGT and the patient has been drinking some fluids. We discussed surgical options for repairing the leak, as well as the possibility of transferring the patient to have a staff toxicologist place a stent across the leak. The patient and his son are in agreement that no further procedures will be done, and the patient will not accept an NG tube. They would like him to be able to go home, and to be made comfortable at home. I explained that the leak that he has is not life-threatening, and does not make him a candidate for hospice care. I explained that I expect he will still likely seal the leak, even without the NGT, and he will ultimately recover although it will take longer without the NG tube and without any of the procedural interventions that we discussed. During that meeting on 08/04 I recommended that he at least continue with the TPN and keep the drain in place, and remain NPO so that this can ultimately heal and he can go back to eating and having a more normal life. If he goes home and begins to eat solid food, or takes in any significant amount of oral intake he will likely increase the leak, disrupt the repair, and increase his pain, likely resulting in sepsis. I let them know in clear terms that this will make him very sick and would be a terrible way to . I strongly recommended to the patient that he maintain NPO status, continue daily TPN for nutrition so that he has adequate nutrition to heal the leak, and co ntinue octreotide to reduce his secretions so that he can heal the leak. I explained that it may take 4-6 weeks for the leak to seal. However, getting the leak to seal is the best chance for recovery and getting back to normal life. I discussed this with the patient and his son, and with the care coordinators, who will work on dispo planning for him. Interval events: the patient's WBC is increased today, CXR is worsening, and he has a wet cough. His drain out put and abdominal exam are unchanged. He has a known cavitary lesion in the chest, which was not completely evaluated since it was discovered three weeks ago and evaluated at [facility]. He still has a arriaga in. We will check cultures of blood, urine, and drain fluid, and adjust antibiotics as appropriate. I would consider CT scan of chest/abdomen/pelvis if no source is identified and no improvement on antibiotic adjustment. This would be to rule out pneumonia, empyema, and abdominal abscess. Recommendations: Keep MATHEW drains emptied, record output, and recharge Consider removing Arriaga, and having patient out of bed to ambulate as much as possible DVT prophylaxis with SCDs, and heparin TPN Control blood sugar cultures consider CT chest/abd/pelvis and LE US for DVT if no source identified for increased WBC from cultures PT, ambulate Strict NPO dispo planning COVID-19 COVID-19 status: Negative Result date/Date tested (Pos, Neg/Pending): 07/30/20 Time Spent With Patient Time with patient: 25 - 35 minutes Quality VTE Deep Vein Thrombosis/Pulmonary Embolism Present on Admission: No
[2020-08-05 09:48] VITALS: BP 148/65
--- NOTE | 2020-08-05 09:48 | CM.DPC ---
Addendum entered by Mariela Guardado R.N. 08/05/20 15:44: Hospitalist indicated that patient's PICC line was discontinued secondary to purulent drainage, possible infection. He updated Dr. Landrum, and is having a meeting with patient's son and sister to discuss putting patient on comfort care. At this time, patient is getting morphine push for comfort, is NPO. Family has been at bedside. Dr. Joseph feels that patient is imminent at this time. Will continue to follow closely for any needs. At this time, patient is NPO, sleeping. Original Note: DCP Cont: Dr. Cueva came by the care management office, and discussed the medical reason as to why patient does not qualify for a PEG tube. At this time, patient is only able to tolerate TPN. 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 At this time his white count has elevated. Let her know that this bottle caser has sent referrals to [place], as well as [facility] in [place]. Have not yet heard back from facilities, but messages have been left. No other skilled facilities in this area take TPN, but did not yet hear back from [facility]. P: DCP to continue to follow. Will attempt to meet with son to see if he would like to set up a time for palliative care conference with Latisha Meredith tomorrow in the afternoon. If a time is set up, will email Latisha. Mariela Guardado RN/[employer] Professional
[2020-08-05] MEDS: DEXTROSE 10 % IN WATER 1,000 ML 21 ML IV (10:28)
[2020-08-05] MEDS: VANCOMYCIN 2,000 MG/400 ML PIGGYBACK 200 MG IV (10:52)
[2020-08-05 11:17] LABS: RBC Urine None Seen (0-5/HPF); WBC Urine None Seen (0-5/HPF)
[2020-08-05 11:44] LABS: Appearance Urine UA CLEAR; Bilirubin Urine UA NEGATIVE (NEGATIVE); Color Urine UA YELLOW; Glucose Urine UA 1+ g/dL (Negative); Ketones Urine UA NEGATIVE (NEGATIVE); Leukocyte Esterase Urine UA NEGATIVE (NEGATIVE); Nitrite Urine UA POSITIVE (Negative); Occult Blood Urine UA TRACE-LYSED (Negative); Protein Urine UA 2+ (Negative); Specific Gravity Urine UA >=1.030 (1.000-1.035); Urobilinogen Urine UA 0.2 E.U./dL (0.2)
[2020-08-05 11:50] LABS: Amorphous Sediment Urine 1+; Culture Indicated Urine Specimen Cultured; Granular Casts Urine 1-5/LPF
[2020-08-05 11:58] LABS: Bacteria Urine Few (2-10)
[2020-08-05] MEDS: MORPHINE 2 MG/ML INJ IV ×6 (12:05→20:07)
[2020-08-05] MEDS: LORazepam 2 MG/ML INJ 1 MG IV (13:15)
--- NOTE | 2020-08-05 14:34 | PT-IP ANOTE ---
Per SAMPLE GRINDER, pt remains not appropriate for skilled therapy at this time. Discussed case with hospitalist who states pt is comfort care only and refusing all interventions. Will follow up with general surgery who ordered PT consult but will likely discharge orders.
[2020-08-05] MEDS: SODIUM CHLORIDE 0.9% 250 ML 30 ML IV (14:54)
--- NOTE | 2020-08-05 15:12 | PC.NURSE ---
Shift Note Pt very lethargic on AM assessment, lung sounds very coarse with rhonchi throughout. Oxygen titrated between 3-9L HFNC, SpO2 87-94%. Blood cultures drawn and sent, PICC dressing noted to be loose. Old dressing removed and dressing saturated with purulent drainage, skin underneath sloughing off and erythemic. notified and PICC d/c'd, tip sent for culture. Pt's son (Ted) and [id number] (Prudence) at bedside. Pt transitioned to comfort care by Dr. Joseph after discussion at bedside with family at about 1220. Pt reporting pain to back and buttocks, site visualized, erythemic but blanchable, and positioned on side. Morphine and Ativan administered per emar due to pt respiratory distress/pain to back. MATHEW drains compressed and patent. Molina catheter draining clear yellow urine. Oxygen in place at 2L for comfort at this time. Pt ok to have clear liquids for comfort per Dr. Cueva. Bed alarm on for safety.
--- NOTE | 2020-08-05 17:43 | PM.PN.1 ---
Subjective Subjective Date Patient Seen: 08/05/20 Time Patient Seen: 07:43 Interval history: Today he clinically appeared worse. Overnight became more lethargic and somnolent. This morning noted to have cellulitis and pus around the PICC. TPN stopped and PICC line removed. He was requiring slightly higher oxygen requirements. Chest xray was done that showed possible pneumonia. Discussed with son who stated to me his father's wishes about having minimal medical care, and that the patient had feeling that he would be passing away soon. After discussion with son decision was made to transition patient to comfort care. This was discussed with Dr. Cueva his surgeon. Exam Vital Signs (past 8 hours): - 08/05/20 09:48 Blood Pressure 148/65 H Fraction of Inspired Oxygen 30 Oxygen Delivery Method Room Air Oxygen Flow Rate 2 Narrative Exam Narrative: General: eyes closed, confused, mumbling CV: regular rate and rhythm PULM: coarse breath sounds bilaterally Abdomen: MATHEW drain with bile drainage, soft, nontender Neurological: lethargic, confused SKIN: PICC site erythematous with pus around the PICC : arriaga in place Objective Labs Result Diagrams: 08/05/20 04:20 08/05/20 04:20 Labs: Laboratory Results - last 24 hr 08/05/20 08/05/20 08/05/20 04:20 04:20 11:10 WBC 19.7 H RBC 4.01 L Hgb 11.5 L Hct 36.2 L MCV 90.3 MCH 28.8 MCHC 31.9 RDW 16.5 H Plt Count 308 Neut % (Auto) Not Reportable Lymph % (Auto) Not Reportable Emanuel % (Auto) Not Reportable Eos % (Auto) Not Reportable Baso % (Auto) Not Reportable Lymph # (Auto) Not Reportable Emanuel # (Auto) Not Reportable Baso # (Auto) Not Reportable Total Counted 100 Seg Neutrophils % 78.0 H Band Neutrophils % 4.0 Lymphocytes % (Manual) 6.0 L Atypical Lymphs % 1.0 H Monocytes % (Manual) 10.0 Eosinophils % (Manual) 1.0 L Neutrophils # (Manual) 24408 H Platelet Estimate Adequate on smear RBC Morphology Normal morphology Sodium 142 Potassium 4.4 Chloride 106 Carbon Dioxide 36 H BUN 32 H Creatinine 1.03 Estimated GFR > 60.0 BUN/Creatinine Ratio 31.1 H Glucose 246 H Calcium 8.0 L Total Bilirubin 0.1 L AST 12 L ALT 8 Alkaline Phosphatase 89 Total Protein 4.9 L Albumin 2.2 L Globulin 2.7 Albumin/Globulin Ratio 0.8 L Urine Color Yellow Urine Appearance Clear Urine pH 5.0 Ur Specific [place] >=1.030 H Urine Protein 2+ H Urine Glucose (UA) 1+ H Urine Ketones Negative Urine Occult Blood Trace-lysed Urine Nitrate Positive Urine Bilirubin Negative Urine Urobilinogen 0.2 Ur Leukocyte Esterase Negative Urine RBC None seen Urine WBC None seen Amorphous Sediment 1+ Urine Bacteria Few (2-10) H Granular Casts 1-5/lpf Ur Culture Indicated? Specimen cultured PFSH Medical History BPH (benign prostatic hyperplasia) Chronic kidney disease DM2 (diabetes mellitus, type 2) HTN (hypertension) Smoker Social History household members: none Smoking Status: Current every day smoker Assessment & Plan Assessment & Plan narrative: Mr. Perez came in with an acute perforated ulcer s/p laparotomy with repair on 07/30. He clinically worsened on 08/05 with increasing oxygen requirement, rising white count, and infected PICC site. 1. Sepsis, with metabolic encephalopathy, worsening acute respiratory failure, secondary to pneumonia and infected PICC -prognosis very poor given multiple infections in setting of already being on broad spectrum antibiotics, there would not be much additional coverage aside from vancomycin that might benefit him -however discussion was had with patient's son who reiterated his father's goals of care, and who wants to focus on making him comfortable and understanding these multiple illnesses untreated will be fatal -comfort orders placed, antibiotics stopped, appreciate surgical recommendations on diet and drain care 2. Perforated duodenal ulcer, present on admission, active -status post laparotomy repair on 07/30 -no evidence of GI bleed -anastamosis leak managed by surgery, on octreotide, monitoring MATHEW output -per surgery note GOC discussion had, and patient does not want to return to the OR -TPN attempted but PICC pulled due to infection 2. Sepsis with septic shock due to acute peritonitis, present on admission, improved -secondary to intra-abdominal infection from perforated ulcer 3. Acute respiratory failure with hypoxia from pneumonia, active -had stenotrophomonas growing in sputum, was on levofloxacin 4. Acute kidney injury, likely secondary to ATN, present on admission, resolved -baseline creatinine 1.5, was 2.22 on admit, improved 5. Type 2 diabetes -at baseline well controlled, A1c 6.2 -initially hypoglycemic now severely hyperglycemic since initiation of TPN -increased to 40 units insulin in TPN starting evening 6/5 -stopped insulin given comfort care 6. Lung cavitary lesion and pleural fluid -worked up at [facility], recommended for repeat CT in 3-6 months per pulmonology. TB highly unlikely, most likely malignancy or bleb. 7. BPH -arriaga placed in the ER 8. Cigarette dependency -patient recently stop smoking IVF: TPN DVT ppx: heparin DIET: NPO Code: DNR, proxy is maria eugenia Monk VTE Deep Vein Thrombosis/Pulmonary Embolism Present on Admission: No
[2020-08-06] VITALS: PULSE 96; RESP 32; O2SAT 86
[2020-08-06] MEDS: MORPHINE 2 MG/ML INJ IV ×4 (01:05→09:55)
[2020-08-06] MEDS: SCOPOLAMINE 1 PATCH TOP (02:29)
[2020-08-06] MEDS: LORazepam 2 MG/ML INJ 1 MG IV ×3 (03:28→09:56)
--- NOTE | 2020-08-06 08:42 | OT.IPNOTE ---
Pt on comfort measures and therefore discharge from OT services at this time.
[2020-08-06] MEDS: LORazepam 2 MG/ML INJ IV (10:52)
[2020-08-06] MEDS: MORPHINE 2 MG/ML INJ 4 MG IV (10:53)
--- NOTE | 2020-08-06 11:36 | PC.NURSE ---
Addendum entered by Jacinda Awan R.N. 08/06/20 11:58: Pt's son, Ted and daughter in law, Prudence, informed me they were ready to leave. They report, taking his glasses, all other personal belongings are at [facility], they will contact facility to retrieve. Son's contact number verified for the home. Original Note: Called into room by PHYSICIAN OFFICE CLIN ASST, family reports several minutes of apnea. Auscultated for heart beat for 30 seconds, no heartbeat auscultated. MD informed of occurrence. Pt's family given privacy in pt room.
--- NOTE | 2020-08-06 11:44 | CM.DPC ---
DCP Per MD, pt officially made Comfort Care yesterday 08/05/20 afternoon after discussion with son and family and pt's respirations seem to be declining and per RT CO2 levels were around 50. anticipates that pt is quite imminent for the next 24 hours. But if pt stabilizes, ETHEL called [facility] (where pt admitted from for SNF rehab) to determine if pt stable in the morning could they accept on Comfort Care. Per Nicole at [facility], they would be willing to start [facility] auth today for comfort but even if [facility] auths for Comfort, they will need 2 weeks PP upfront costs from family. Nicole willing to start auth process right now prior to lunch. ETHEL received a call from financial adviser before call could be placed to son by ETHEL, and pt just in the hospital. Family is being contacted. ETHEL called Nicole at [facility] and updated and she will cancel her [facility] auth request. TERESA Dennison
--- NOTE | 2020-08-06 11:50 | PM.PN.1 ---
Subjective Subjective Date Patient Seen: 08/06/20 Time Patient Seen: 11:50 Interval history: Per the patient and family wishes he has been made comfort care. His son and daughter in law were in the room this morning, and said they were pleased with the plan to keep him comfortable and felt his wishes were being implemented. Exam Vital Signs (past 8 hours): Fraction of Inspired Oxygen 30 Oxygen Delivery Method Nasal Cannula Oxygen Flow Rate 2 Narrative Exam Narrative: Pt somnolent Breathing comfortably on NC 2L right MATHEW drain is greener than yesterday, consistent with holding octreotide Objective Labs Result Diagrams: 08/05/20 04:20 08/05/20 04:20 Labs: Laboratory Results - last 24 hr 08/05/20 11:10 Urine RBC None seen Urine WBC None seen Amorphous Sediment 1+ Urine Bacteria Few (2-10) H Granular Casts 1-5/lpf Ur Culture Indicated? Specimen cultured PFSH Medical History BPH (benign prostatic hyperplasia) Chronic kidney disease DM2 (diabetes mellitus, type 2) HTN (hypertension) Smoker Social History household members: none Smoking Status: Current every day smoker Assessment & Plan Assessment & Plan narrative: 74-year-old man who came in with a perforated duodenal ulcer, had emergency surgery, and has subsequently leak from the repair. After multiple discussions with the patient and his family, ultimately they elected for comfort care rather than pursuing treatment to resolve the leak. Although there were multiple feasible medical options in surgical options, which have been explained to the patient and his family, the prefer to go with comfort care at this time. I discussed this again with the family this morning, and they stated that they feel have his wishes are being implemented by having him on comfort care. I recommended that the nurse continue to dump the MATHEW drain frequently so that bilious fluid does not build up in the abdomen causing him discomfort. I will follow along the keep an eye on the drain, and be available for any questions or concerns that I can help with. The remainder of medical management is deferred to the hospitalist and palliative care consult. Quality VTE Deep Vein Thrombosis/Pulmonary Embolism Present on Admission: No
--- NOTE | 2020-08-06 12:33 | PC.NURSE ---
IV's x2 removed, MATHEW drains x2 removed, Molina catheter removed. Indra from [facility] accepted remains.
--- NOTE | 2020-08-06 14:07 | PM.DDS.1 ---
Discharge Summary History of Illness Narrative: Per Dr. Handy: This is a 74-year-old male with a past medical history of hypertension, hyperlipidemia, BPH, type 2 diabetes, tobacco use, cataracts who has been dealing with abdominal pain, nausea, vomiting, and decreased appetite since he received his 2nd COVID vaccination on June 25. Over this time he has had frequent watery diarrhea with any oral intake, and was recently admitted to [facility] after initial presentation of the symptoms as his CT scan showed a cavitary 1.7 cm lesion in the right apex. TB was deemed low risk at that time by Pulmonary consultation, and recommended CT chest imaging in 3-6 months for further evaluation. He describes abdominal pain as upper abdominal pain without radiation to the back. It gets worse with eating. Starting yesterday evening he started having severe abdominal pain all over his abdomen and he has not eaten in several days. He has been taking ibuprofen for the pain. In the emergency room, the patient was tachycardic, hypotensive but responded to fluid boluses, tachypneic and hypoxic on room air. Laboratory evaluation revealed a WBC of 20, with 90% neutrophils. D-dimer was negative for age at 620. INR was 1.1. ABG on 100% FiO2 via non-rebreather mask showed a PO2 of 113. Chemistries revealed a creatinine of 2.22, with a BUN of 73. Sodium was 134. Lactate was initially 2.2 but increased to 3.1. ProBNP was only mildly elevated at 274, troponin was 0.017. Procalcitonin was 1.32. Lipase was 183. Urinalysis did not show any evidence of infection. COVID-[address] scan of his abdomen showed intra-abdominal free air. CT angiogram of his chest showed a stable cavitary lesion and a stable pleural effusion on the left, no pulmonary embolism. Patient was taken emergently for surgery, medicine was asked to admit for additional management after surgery of his sepsis and complex medical issues. Medications are based on history in the computer, he did not know his current medications neither did his son. Unable to be reconciled at this time due to emergent surgery. Hospital Course Date of Admission: 07/30/20 15:23 Date of : 08/06/20 Consults: 07/30/20 12:14 Consult to Respiratory Therapy Evaluate & Treat Comment: Physician Instructions: Evaluate and treat 07/30/20 21:54 Consult to General Surgery Routine Comment: Consulting Provider: Flor Cueva Reason for consultation: abdominal free air 07/30/20 21:57 Consult to Dietitian, Adult Routine Comment: Reason For Exam: Patient on Ventilator and NPO 08/01/20 10:11 Consult to Dietitian, Adult Routine Comment: Reason For Exam: TPN recommendations 08/02/20 07:03 Consult to Physical Therapy Evaluate & Treat Comment: Debilitated postop, needs ambulation, please help Physician Instructions: Evaluate and Treat 08/02/20 10:58 Consult to Occupational Therapy Evaluate & Treat Comment: Physician Instructions: Evaluate and treat Discharge provider: Dr. Joseph Discharge Diagnosis: 1. Perforated duodenal ulcer 2. Sepsis with septic shock due to acute peritonitis 3. Sepsis, with metabolic encephalopathy, worsening acute respiratory failure, secondary to pneumonia and infected PICC 4. Acute respiratory failure with hypoxia from pneumonia 5. Acute kidney injury, likely secondary to ATN, 6. Type 2 diabetes 7. Lung cavitary lesion and pleural fluid 8. BPH 9. Cigarette dependency Hospital Course: Mr. Perez was admitted with a duodenal ulcer perforation and went for surgery for repair. After this he was intermittently declining recommended interventions, like NG tube for decompresssion, insulin, and remaining NPO. He was started on TPN for nutrition. He began to have worsening encephalopathy and shortness of breath and was found to have sepsis from a pneumonia and infected PICC. After discussion with family it was clear that the patient's goals of care were to have no further invasive medical interventions. He was placed on comfort care and he on 08/06 at 11:30am with family at bedside Objective Labs Result Diagrams: 08/05/20 04:20 08/05/20 04:20
== END 2020-08-06 12:35 | disposition expired | DRG 853 ==
LOC: ED 14:37 → AC 15:24 → ICU 21:53 → AC 08-05 20:29
PROVIDERS: Internal Medicine; Nurse Practitioner Family; Specialist; Surgery; Admitting Provider Internal Medicine; Emergency Provider Emergency Medicine; Referring Provider Emergency Medicine; Visit Provider Internal Medicine
PROC: 0DU907Z Supplement Duodenum with Autologous Tissue Substitute, Open Approach (ICD-10-PCS; CPT 49320; principal; 2020-07-30 16:00)
PROC: 0DJ08ZZ Inspection of Upper Intestinal Tract, Via Natural or Artificial Opening Endoscopic (ICD-10-PCS; CPT 43235; 2020-07-30 16:00)
DX: A41.9 Sepsis, unspecified organism (principal); J96.01 Acute respiratory failure with hypoxia; T80.212A Local infection due to central venous catheter, initial encounter; N17.0 Acute kidney failure with tubular necrosis; K26.5 Chronic or unspecified duodenal ulcer with perforation; K65.9 Peritonitis, unspecified; R65.21 Severe sepsis with septic shock; J18.9 Pneumonia, unspecified organism; K91.89 Other postprocedural complications and disorders of digestive system; T81.32XA Disruption of internal operation (surgical) wound, not elsewhere classified, initial encounter; L03.114 Cellulitis of left upper limb; E11.22 Type 2 diabetes mellitus with diabetic chronic kidney disease; I12.9 Hypertensive chronic kidney disease with stage 1 through stage 4 chronic kidney disease, or unspecified chronic kidney disease; N18.9 Chronic kidney disease, unspecified; Z87.891 Personal history of nicotine dependence; Z79.84 Long term (current) use of oral hypoglycemic drugs; E78.5 Hyperlipidemia, unspecified; N40.0 Benign prostatic hyperplasia without lower urinary tract symptoms; Z20.822 Contact with and (suspected) exposure to COVID-19; E11.65 Type 2 diabetes mellitus with hyperglycemia; Y83.8 Other surgical procedures as the cause of abnormal reaction of the patient, or of later complication, without mention of misadventure at the time of the procedure; Z91.19 Patient's noncompliance with other medical treatment and regimen
CPT/HCPCS: 36415; 36569; 36592; 36600; 43247; 43840; 49905; 51702; 71045; 71275; 74018; 74177; 74240; 74248; 80048; 80053; 80076; 81001; 82150; 82550; 82805; 82962; 83036; 83605; 83690; 83735; 83880; 84145; 84484; 85007; 85025; 85379; 85610; 85730; 87040; 87070; 87075; 87077; 87086; 87186; 87205; 87635; 87797; 93005; 94002; 94003; 94667; 94760; 94799; 96361; 96365; 96367; 96375; 96376; 97162; 97167; 97530; 99232; 99285; 99291; 99292; 99406; C9803; B4185; B4189; C9113; C9290; J1170; J1642; J1644; J1815; J1940; J1956; J2060; J2250; J2270; J2354; J2405; J2543; J2704; J2930; J3010; J3480; Q9967